=== PATIENT | female | born 1940 | race African-American/Black ===

== ENCOUNTER 2016-11-08 11:42 | Observation (INO) | payer MEDICARE, OTHER ==
[~2016-11-08] VITALS: Ht 165.1 cm; Wt 56.8 kg
[~2016-11-08 11:42] MED LIST: ATOR40TA49 PO; BACT PO; CARV12.52 PO; CLOP75 PO; HYDR50TA5 PO; LISI-363 PO; MACR100C PO; METF500 PO; Shower Chair
[2016-11-08 11:51] VITALS: BP 152/69; PULSE 98; RESP 18; TEMP 97.6; O2SAT 93
[2016-11-08] MEDS ORDERED: ACETAMINOPHEN/HYDROcodone 325 MG/5 MG TAB PO ONE (12:00)
--- NOTE | 2016-11-08 13:01 | PD ---
HPI Chief Complaint: Pain: Acute or Chronic Time Seen by Provider: 11:50 Travel History International Travel<30 days: No Contact w/Intl Traveler<30days: No Traveled to known affect area: No History of Present Illness HPI 76-year-old female here with complaint of low back/sacral pain. Patient is primarily wheelchair bound and uses a walker minimally for transfers and assistance. She was getting from her chair to a potty chair yesterday when she slipped, the potty chair fell out from underneath her and she landed on her buttock. Her son helped her into bed, but she has not been able to get up since. She is using Tylenol and ibuprofen for pain. She notes no pain to the lumbar spine, primarily within the sacrum. No difficulties with bowel movements. She was unable to get up today prompting EMS call. PFSH Past Medical History Hx Anticoagulant Therapy: Yes (PT CANT REMEMBER) Asthma: No Blood Disorders: No Anxiety: No Depression: No Heart Rhythm Problems: Yes Cancer: No Cardiac Catheterization: Yes Cardiovascular Problems: Yes High Cholesterol: Yes Chest Pain: Yes Congestive Heart Failure: No COPD: No Cerebrovascular Accident: Yes (2015) Coronary Artery Disease: Yes Diabetes: Yes Patient Takes Glucophage: Yes Diminished Hearing: No Endocrine: Yes Gastrointestinal Disorders: No Genitourinary: No Hypertension: Yes Immune Disorder: No Implanted Vascular Access Dvce: Yes Musculoskeletal: Yes (OA BILATERAL KNEES) Neurologic: Yes (HX OF CVA X2 - NO RESIDUAL) Psychiatric: No Reproductive: Yes (hysterectomy 1982) Respiratory: No Sleep Apnea: No Thyroid Disease: No Menopausal: Yes Past Surgical History Abdominal Surgery: No Body Medical Devices: HX OF CARDIAC STENTS Cardiac Surgery: Yes (two stents put in - 4 years ago) Coronary Stent: Yes (X 2 2001) Ear Surgery: No Eye Surgery: No Genitourinary Surgery: No Gynecologic Surgery: Yes (hysterectomy 1982) Hysterectomy: Yes Neurologic Surgery: No Oral Surgery: No Other Surgery: Yes Social History Alcohol Use: No Tobacco Use: No Substance Use: No Allergies-Medications (Allergen,Severity, Reaction): Coded Allergies: No Known Allergies (Verified , 11/08/16) Reported Meds & Prescriptions Reported Meds & Active Scripts Active Macrobid (Nitrofurantoin Macrocrystals) 100 Mg Cap 100 Mg PO BID Carvedilol 12.5 mg (Carvedilol) 12.5 Mg Tab 1 Tab PO BID Glucophage 500 mg (Metformin HCl) 500 Mg Tab 2 Tab PO BIDAC TAKE WITH MEALS Bactrim (Trimethoprim/Sulfamethoxazole) 80 Mg/400 Mg Tab 2 Tab PO BID Lisinopril 20 mg (Lisinopril) 20 Mg Tab 20 Mg PO DAILY Lipitor 40 Mg Tab (Atorvastatin Calcium) 40 Mg Tab 40 Mg PO DAILY Hctz (Hydrochlorothiazide) 50 Mg Tab 50 Mg PO DAILY [Shower Chair] 1 Unit .XX ONCE Plavix (Clopidogrel Bisulfate) 75 Mg Tab 75 Mg PO DAILY Review of Systems Except as stated in HPI: all other systems reviewed are Neg Physical Exam Narrative GENERAL: Cachectic elderly female in no acute distress SKIN: Focused skin assessment warm/dry. HEAD: Normocephalic. EYES: No scleral icterus. No injection or drainage. ENT: No nasal bleeding or discharge. Mucous membranes pink and moist. NECK: Supple mid line tenderness to palpation CARDIOVASCULAR: Regular rate and rhythm. RESPIRATORY: No accessory muscle use. GASTROINTESTINAL: Abdomen soft, non-tender MUSCULOSKELETAL: No midline tenderness to palpation of thoracic or lumbar spine. Patient has tenderness to palpation over the sacrum and bilateral SI joints without obvious deformity, ecchymosis. Pelvis appears stable. Bilateral upper and lower extremity range of motion is unremarkable without obvious deformity or injury. NEUROLOGICAL: Awake and alert. Motor grossly within normal limits. Normal speech. PSYCHIATRIC: Appropriate mood and affect; insight and judgment normal. Data Data Last Documented VS Vital Signs Date Time Temp Pulse Resp B/P Pulse Ox O2 Delivery O2 Flow Rate FiO2 11/08/16 11:51 97.6 98 18 152/[address] Pelvis W/O Iv Contrast (11/08/16 ) Acetamin-Hydrocod 325-5 Mg ([place] 5-325 (11/08/16 12:00) [facility] Medical Decision Making Medical Screen Exam Complete: Yes Emergency Medical Condition: Yes Medical Record Reviewed: Yes Differential Diagnosis 76-year-old female here after fall from standing yesterday with pain to the sacrum. Differential includes sacral bruising, fracture, pelvic fracture. Narrative Course Patient given [place] for pain. CT of the pelvis showed fracture at the sacrococcygeal region. Patient unfortunately is more weak than her normal and is not able to stand up independently. Will be admitted for physical therapy and potential placement. Diagnosis Primary Impression: Sacral fracture, closed Admitting Information Admitting Physician Requests: Observation Rupal Chan MD Nov 08, 2016 13:01
--- NOTE | 2016-11-08 13:14 | RADRPT ---
EXAM DATE/TIME: 11/08/2016 12:35 [place] COMPARISON: No previous studies available for comparison. INDICATIONS : Fell from chair. ORAL CONTRAST: No oral contrast ingested. RADIATION DOSE: 9.83 CTDIvol (mGy) MEDICAL HISTORY : Cardiovascular disease. Cerebrovascular disease. Hypertension.Diabetic SURGICAL HISTORY : None. ENCOUNTER: Initial ACUITY: 1 day PAIN SCALE: 4/10 LOCATION: pelvis TECHNIQUE: Volumetric scanning of the pelvis was performed. Using automated exposure control and adjustment of the mA and/or kV according to patient size, radiation dose was kept as low as reasonably achievable t o obtain optimal diagnostic quality images. FINDINGS: There is a fracture of the sacrococcygeal junction with minimal displacement. Bony structures are ost eopenic. There is no evidence for free fluid, mass, abscess formation, or any significant pathologica l adenopathy. There are no signs of diverticulitis. Chronic vascular calcifications are seen most l ikely due to the atherosclerotic changes involving the aorta, and iliac arteries without any signific ant aneurysmal dilatations for technique. There is moderate amount of stool in the colon.Scattered di verticuli are present in the visualized colon. IMPRESSION: Fracture at the sacrococcygeal junction. Alina Hernandez MD on November 08, 2016 at 13:07 Board Certified Radiologist. This report was verified electronically.
[2016-11-08 15:47] VITALS: BP 92/53; PULSE 84; RESP 20; O2SAT 93
--- NOTE | 2016-11-08 18:08 | HHI.HP ---
[facility] Service [facility] Primary Care Physician No Primary Care Physician Admission Diagnosis sacral fracture Diagnoses: Chief Complaint: Low back pain inability to ambulate Travel History International Travel<30 Days: No Contact w/Intl Traveler <30 Da: No Traveled to Known Affected Are: No History of Present Illness Patient is a 76-year-old female with history of hypertension, diabetes type 2 who is baseline almost wheelchair bound for the past year now but still able to get up out of bed to transfer to the wheelchair or commode but takes a long time. Patient lives at home with her grandson and has a caregiver. Apparently yesterday morning at around 5 AM patient tried to get up from bed to the pot T and the cultures sleeps in one block and the patient fell on the floor. Son helped him get up to bed and since then although was having intermittent pain on the tailbone. This morning. Was unbearable and was brought in here for further evaluation. Patient is comfortable when laying in bed still however when tries to move around even in bed experiencedf pain mostly on the sacral area. Denies any incontinence or calf pain. Patient admitted for further evaluation and management. Review of Systems Constitutional: DENIES: Diaphoretic episodes, Fatigue, Fever, Weight gain, Weight loss, Chills, Dizziness, Change in appetite, Night Sweats Endocrine: DENIES: Abnorml menstrual pattern, Heat/cold intolerance, Polydipsia , Polyuria, Polyphagia Eyes: DENIES: Blurred vision, Diplopia, Eye inflammation, Eye pain, Vision loss , Photosensitivity, Double Vision Ears, nose, mouth, throat: DENIES: Tinnitus, Hearing loss, Vertigo, Nasal discharge, Oral lesions, Throat pain, Hoarseness, Ear Pain, Running Nose, Epistaxis, Sinus Pain, Toothache, Odynophagia Respiratory: DENIES: Apneas, Cough, Snoring, Wheezing, Hemoptysis, Sputum production, Shortness of breath Cardiovascular: DENIES: Chest pain, Palpitations, Syncope, Dyspnea on Exertion , PND, Lower Extremity Edema, Orthopnea, Claudication Gastrointestinal: DENIES: Abdominal pain, Black stools, Bloody stools, Constipation, Diarrhea, Nausea, Vomiting, Difficulty Swallowing, Anorexia Genitourinary: DENIES: Abnormal vaginal bleeding, Dysmenorrhea, Dyspareunia, Sexual dysfunction, Urinary frequency, Urinary incontinence, Urgency, Hematuria , Dysuria, Nocturia, Vaginal discharge Musculoskeletal: COMPLAINS OF: Back pain Integumentary: DENIES: Abnormal pigmentation, Pruritus, Rash, Nail changes, Breast masses, Breast skin changes, Nipple discharge Hematologic/lymphatic: DENIES: Bruising, Lymphadenopathy Immunologic/allergic: DENIES: Eczema, Urticaria Neurologic: DENIES: Abnormal gait, Headache, Localized weakness, Paresthesias, Seizures, Speech Problems, Tremor, Poor Balance Psychiatric: DENIES: Anxiety, Confusion, Mood changes, Depression, Hallucinations, Agitation, Suicidal Ideation, Homicidal Ideation, Delusions Past Family Social History Past Medical History Hypertension History of CVA 5 years ago History of rheumatic fever Denies any history of CAD History of diabetes type 2 Past Surgical History Hysterectomy Reported Medications Metformin 500 mg twice a day Lisinopril 2.5 mg twice a day Carvedilol 6.25 mg twice a day Hydrochlorothiazide 12.5 mg daily Atorvastatin 40 mg at bedtime Plavix 75 mg daily Allergies: Coded Allergies: No Known Allergies (Verified , 11/08/16) Family History Noncontributory Social History History of smoking about a pack a day quit 15 years ago Denies alcohol or substance abuse Physical Exam Vital Signs Vital Signs Date Time Temp Pulse Resp B/P Pulse Ox O2 Delivery O2 Flow Rate FiO2 11/08/16 15:47 84 20 92/53 93 11/08/16 11:51 97.6 98 18 152/69 93 Physical Exam GENERAL: This is a well-nourished, well-developed patient, in no apparent distress. SKIN: No rashes, ecchymoses or lesions. Cool and dry. HEAD: Atraumatic. Normocephalic. No temporal or scalp tenderness. EYES: Pupils equal round and reactive. Extraocular motions intact. No scleral icterus. No injection or drainage. ENT: Nose without bleeding, Throat without erythema, tonsillar hypertrophy or exudate. Uvula midline. Airway patent. NECK: Trachea midline. No JVD or lymphadenopathy. Supple, nontender, no meningeal signs. CARDIOVASCULAR: Regular rate and rhythm without murmurs, RESPIRATORY: Clear to auscultation. Breath sounds equal bilaterally. No wheezes , rales, or rhonchi. GASTROINTESTINAL: Abdomen soft, non-tender, nondistended. No guarding. MUSCULOSKELETAL: Point tenderness on palpation of the sacrum. Good peripheral pulses NEUROLOGICAL: Awake and alert. Cranial nerves II through XII intact. Sensory intact. Speech clear. Moves all extremities limited by pain Assessment and Plan Assessment and Plan 76-year-old female Status post fall with increasing pain and difficulty ambulation with left sacrococcygeal fracture Consult orthopedic service for recommendation PTOT consult in a.m. When necessary pain meds History of diabetes type 2 patient states good hypoglycemic awareness . ff blood sugars. DC Metformin.FF BMP History of CVA, hypertension continue lisinopril 2.5 mg by mouth twice a day. Carvedilol 6.25 mg twice a day. Continue on Plavix 75 mg daily History of hyperlipidemia continue atorvastatin 40 mg at bedtime Case management consult for discharge planning Lovenox 30 mg subcutaneous for DVT prophylaxis Discussed Condition With Patient and caregiver Layla Phan MD Nov 08, 2016 18:08 Layla Phan MD Nov 08, 2016 18:08
[2016-11-08 18:59] LABS: AUTOMATED NEUTROPHIL # 3.5 TH/MM3 (1.8-7.7); BASOPHIL % 0.5 % (0.0-2.0); EOSINOPHIL # 0.2 TH/MM3 (0-0.4); HEMATOCRIT 32.8 % (35.0-46.0); HEMO FLAGS DIFF FINAL; LYMPH % 12.8 % (9.0-44.0); LYMPHOCYTE # 0.6 TH/MM3 (1.0-4.8); MEAN CELL VOLUME 91.5 FL (80.0-100.0); MEAN CORPUSCULAR HEMOGLOBIN 30.4 PG (27.0-34.0); MEAN CORPUSCULAR HGB CONC 33.2 % (32.0-36.0); MONO % 7.6 % (0.0-8.0); NEUT % 75.1 % (16.0-70.0); PLATELET COUNT 102 TH/MM3 (150-450); RED BLOOD COUNT 3.59 MIL/MM3 (4.00-5.30); WHITE BLOOD COUNT 4.6 TH/MM3 (4.0-11.0)
[2016-11-08 19:14] LABS: ANION GAP 6 MEQ/L (5-15); AST (GOT) 17 U/L (15-37); BICARBONATE 30.5 MEQ/L (21.0-32.0); BLOOD UREA NITROGEN 26 MG/DL (7-18); CHLORIDE 106 MEQ/L (98-107); GLOMERULAR FILTRATION RATE 48 ML/MIN (>89); POTASSIUM 4.6 MEQ/L (3.5-5.1); SODIUM (NA) 142 MEQ/L (136-145)
[2016-11-08 19:17] LABS: ALKALINE PHOSPHATASE 76 U/L (45-117); ALT (GPT) 20 U/L (10-53); TOTAL BILIRUBIN ADULT 0.4 MG/DL (0.2-1.0)
[2016-11-08 20:00] VITALS: BP 101/57; PULSE 79; RESP 14; O2SAT 95
[2016-11-08 21:57] VITALS: BP 109/59; PULSE 82; RESP 18; TEMP 97.6; O2SAT 97
[2016-11-08] MEDS: CARVEDILOL 12.5 MG TAB PO SCH (22:33)
[2016-11-09] MEDS ORDERED: ACETAMINOPHEN/HYDROcodone 325 MG/5 MG TAB PO PRN (00:15)
[2016-11-09 06:34] VITALS: BP 132/69; PULSE 74; RESP 16; TEMP 97.9; O2SAT 97
--- NOTE | 2016-11-09 07:51 | HHI.PR ---
Subjective Remarks pain with movement when laying still in bed- no pain able to move all extremities- Objective Vitals Vital Signs Date Time Temp Pulse Resp B/P Pulse Ox O2 Delivery O2 Flow Rate FiO2 11/09/16 06:34 97.9 74 16 132/69 97 11/08/16 21:57 97.6 82 18 109/59 97 11/08/16 20:00 79 14 101/57 95 Room Air 11/08/16 15:47 84 20 92/53 93 11/08/16 11:51 97.6 98 18 152/69 93 Result Diagram: 11/08/16 1845 11/08/161844 Objective Remarks awake and alert, oriented x 3 anicteric lungs clear regular rhtthm abdomen soft, nonder no calf swelling or tenderness moves all extremities spontaneously sensory intact grossly gait testing deferred- A/P Assessment and Plan 76-year-old female Status post fall with increasing pain and difficulty ambulation with left sacrococcygeal fracture seen by Dr. Garcia. Consult PT. PT activity as ordered. May need SNF- based on PT eval When necessary pain meds q 4. Stool softeners History of diabetes type 2 patient states good hypoglycemic awareness . ff blood sugars. 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 creatinine near baseline from Apr 2016- monitor BMP .encourage po. History of CVA, hypertension continue lisinopril 2.5 mg by mouth twice a day. Carvedilol 6.25 mg twice a day. Continue on Plavix 75 mg daily. PT daily History of hyperlipidemia continue atorvastatin 40 mg at bedtime Case management consult for discharge planning- home with home PT vs SNF depending on PT evaluation. also consult for possible DME needs base on PT evaluation Lovenox 30 mg subcutaneous for DVT prophylaxis Layla Phan MD Nov 09, 2016 07:51
[2016-11-09 07:58] VITALS: BP 131/61; PULSE 90; RESP 16; TEMP 97.9; O2SAT 96
[2016-11-09] MEDS: CLOPIDOGREL 75 MG TAB PO SCH (08:52)
[2016-11-09] MEDS: LISINOPRIL 20 MG TAB PO SCH (08:52)
[2016-11-09] MEDS: DOCUSATE SODIUM 100 MG CAP PO SCH ×2 (08:52→21:00)
[2016-11-09] MEDS: CARVEDILOL 12.5 MG TAB PO SCH ×2 (08:53→21:00)
[2016-11-09] MEDS: ATORVASTATIN 40 MG TAB PO SCH (08:53)
[2016-11-09] MEDS: ENOXAPARIN SODIUM 30 MG/0.3 ML SYRINGE SQ SCH (08:53)
--- NOTE | 2016-11-09 11:07 | MB ---
cc: MIRELA LOERA DATE OF CONSULTATION: 11/09/2016 REASON FOR CONSULTATION: Coccyx fracture. CONSULTING PHYSICIAN Dr. Phan. HISTORY Samreen is a 76-year-old female who has a history of hypertension and diabetes. She is able to walk short distances with a walker but mostly uses a wheelchair. She states that she had a problem with her right knee which causing her to have limited ambulatory ability. She was getting out of bed to go to the bathroom. She lost her balance and fell. She landed directly on her Buttocks area. She had immediate pain around her tail bone region. She presented emergency room. CT scan revealed a fracture to the coccyx. She is currently awake and the emergency department. Her only complaint is pain around her tail bone region. PAST MEDICAL HISTORY/ILLNESSES Hypertension. History of cerebrovascular accident. Rheumatic fever Type 2 diabetes. SURGERIES Hysterectomy MEDICATIONS 1. Metformin. 2. Lisinopril. 3. Carvedilol. 4. Hydrochlorothiazide. 5. Atorvastatin. 6. Plavix. ALLERGIES NO KNOWN DRUG ALLERGIES. FAMILY HISTORY Noncontributory. SOCIAL HISTORY The patient that smoking about 15 years ago. She denies tobacco or drug use. REVIEW OF SYSTEMS The patient denies headache, visual changes, neck pain, chest pain, shortness of breath, abdominal pain ounce or recent weight loss. She complains of pain around her tail bone. PHYSICAL EXAMINATION IN GENERAL: The patient is a pleasant 76-year female who is awake and alert. She is alert and x3. VITAL SIGNS: Vital signs: Temperature 97.9, pulse 74, respirations 16, blood pressure 134/69, O2 sat 97% on room air. HEAD, EYES, EARS, NOSE, AND THROAT: Head: The patient is normocephalic. Pupils are equal. NECK: Soft, nontender. Trachea is midline. ABDOMEN: The abdomen is soft, nontender, nondistended. EXTREMITIES: Examination of bilateral upper extremities reveals no pain with shoulder, elbow or wrist motion. She has intact sensation in all fingers. She had good cap refill fingers. Radial pulses are palpable. SKIN: The skin is intact both hands. EXTREMITIES: Examination of bilateral lower extremities reveals no significant pain with hip, knee or ankle motion. She has intact sensation both feet. Dorsalis pedis pulses are palpable. She has had a mild varus deformity of right knee examination. BACK: Examination of her spine reveals no tenderness along her no tenderness along her cervical, thoracic or lumbar spine. She has no paraspinal muscle tenderness. She does have tenderness to palpation directly over the coccyx area. CT scan CT scan of pelvis was reviewed. CT scan revealed a minimally displaced fracture through the coccyx. IMPRESSION 1. Diabetes 2. Hypertension 3. History of CVA 4. Coccyx fracture. PLAN The option discussed with the patient at this point I would recommend conservative treatment. The patient may weight bear as tolerated. She has no specific restrictions. She may benefit from a donut type pillow to help alleviate the pain or pressure in the tail bone region. Explained this likely take 8 to 12 weeks to completely heal. All questions were answered. A mid-level provider in my office (nurse practitioner or physician railways assistant) may see this patient on follow-up visits and continue to implement the objectives of this plan including: Starting or adjusting medications, injections , cast application, orthotics, brace application, physical therapy, radiological studies (including x-ray, MRI, CT, ultrasound, bone scan), vascular studies, neurologic studies, specialist consultation, and proceeding with surgical management, as appropriate. MD ALMA Arteaga/rubi /7:08 AM /10:45 AM MTDD
[2016-11-09 11:52] VITALS: BP 93/51; PULSE 77; RESP 16; TEMP 98.7; O2SAT 96
[2016-11-09 11:56] LABS: BICARBONATE 29.6 MEQ/L (21.0-32.0); POTASSIUM 4.2 MEQ/L (3.5-5.1)
[2016-11-09] MEDS: oxyCODONE/ACETAMINOPHEN 5 MG/325 MG TAB PO PRN ×2 (13:48→16:22)
[2016-11-09 15:52] VITALS: BP 110/64; PULSE 90; RESP 16; TEMP 97.9; O2SAT 97
[2016-11-09 18:04] LABS: HEMOGLOBIN A1b 1.2 %; HEMOGLOBIN Ao 84.1 %; HEMOGLOBIN LA1C 2.3 %; HEMOGLOBIN P3 5.7 %
[2016-11-09] MEDS: SODIUM CHLOR 0.9% 1000 ML INJ 1,000 ML IV SCH (18:15)
[2016-11-09 19:09] VITALS: BP 109/63; PULSE 72; RESP 20; TEMP 97.9; O2SAT 89
[2016-11-09 20:00] VITALS: PULSE 75; RESP 18; O2SAT 93
[2016-11-10 00:42] VITALS: BP 130/55; PULSE 84; RESP 21; TEMP 98.6; O2SAT 98
[2016-11-10 04:15] VITALS: BP 161/88; PULSE 90; RESP 21; TEMP 98.6; O2SAT 96
[2016-11-10] MEDS: oxyCODONE/ACETAMINOPHEN 5 MG/325 MG TAB PO PRN ×2 (04:17→09:20)
--- NOTE | 2016-11-10 08:13 | HHI.PR ---
Subjective Remarks comfortable at rest- pain when moving voiding spontaneously Objective Vitals Vital Signs Date Time Temp Pulse Resp B/P Pulse Ox O2 Delivery O2 Flow Rate FiO2 11/10/16 05:20 16 11/10/16 04:15 98.6 90 21 161/88 96 11/10/16 00:42 98.6 84 21 130/55 98 11/09/16 20:00 75 18 93 11/09/16 19:09 97.9 72 20 109/63 89 11/09/16 15:52 97.9 90 16 110/64 97 11/09/16 11:52 98.7 77 16 93/51 96 Result Diagram: 11/08/16 1845 11/09/16 1103 Objective Remarks awake and alert, oriented x 3 anicteric lungs clear regular rhtthm abdomen soft, nontender no calf swelling or tenderness moves all extremities spontaenously- limited by pain, grossly sensory intact sensory intact grossly A/P Assessment and Plan 76-year-old female Status post fall with increasing pain and difficulty ambulation with left sacrococcygeal fracture seen by Dr. Garcia. PT daily .needs SNF When necessary pain meds q 4. Stool softeners History of diabetes type 2 patient states good hypoglycemic awareness BS 98.. ff blood sugars. 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 creatinine near baseline from Apr 2016- monitor BMP .encourage po. BMP today History of CVA, hypertension continue lisinopril 2.5 mg by mouth twice a day. Carvedilol 6.25 mg twice a day. Continue on Plavix 75 mg daily. PT daily History of hyperlipidemia continue atorvastatin 40 mg at bedtime CM consult- SNF today if arranged Lovenox 30 mg subcutaneous for DVT prophylaxis diet- heart healthy, diabetic diet Activity weoght bearing as tolerated Meds- prn Percocet for pain continue home meds except metformin Layla Phan MD Nov 10, 2016 08:13
[2016-11-10 09:02] VITALS: BP 157/70; PULSE 78; RESP 20; O2SAT 95
[2016-11-10] MEDS: LISINOPRIL 20 MG TAB PO SCH (09:19)
[2016-11-10] MEDS: ATORVASTATIN 40 MG TAB PO SCH (09:19)
[2016-11-10] MEDS: ENOXAPARIN SODIUM 30 MG/0.3 ML SYRINGE SQ SCH (09:19)
[2016-11-10] MEDS: CARVEDILOL 12.5 MG TAB PO SCH (09:19)
[2016-11-10] MEDS: DOCUSATE SODIUM 100 MG CAP PO SCH (09:19)
[2016-11-10] MEDS: CLOPIDOGREL 75 MG TAB PO SCH (09:19)
[2016-11-10] MEDS: SODIUM CHLOR 0.9% 1000 ML INJ 1,000 ML IV SCH (09:19)
[2016-11-10 11:15] LABS: BICARBONATE 27.9 MEQ/L (21.0-32.0); POTASSIUM 4.5 MEQ/L (3.5-5.1)
[2016-11-10 11:48] VITALS: BP 114/65; PULSE 88; RESP 18; TEMP 98; O2SAT 95
[2016-11-10 15:45] VITALS: BP 134/67; PULSE 94; RESP 16; TEMP 98.1; O2SAT 98
[2016-11-10] MEDS ORDERED: ENOX30P SQ (17:21)
[2016-11-10] MEDS ORDERED: OXYC1TAB63 PO (17:21)
[2016-11-10] MEDS ORDERED: DOCU1CAP39 PO (17:23)
[2016-11-10 20:46] VITALS: BP 144/73; PULSE 95; RESP 18; TEMP 97.8; O2SAT 97
== END 2016-11-10 22:06 | disposition home or self-care (01) ==
LOC: NEPD 11:42 → NEDA 13:47 → NEPFCDU 21:48
PROVIDERS: ADMIT Internal Medicine; ATTEND Internal Medicine
DX: S32.2XXA Fracture of coccyx, initial encounter for closed fracture (principal); E78.5 Hyperlipidemia, unspecified; N18.9 Chronic kidney disease, unspecified; I12.9 Hypertensive chronic kidney disease with stage 1 through stage 4 chronic kidney disease, or unspecified chronic kidney disease; E11.22 Type 2 diabetes mellitus with diabetic chronic kidney disease; I25.10 Atherosclerotic heart disease of native coronary artery without angina pectoris; E78.00 Pure hypercholesterolemia, unspecified; M17.0 Bilateral primary osteoarthritis of knee; W01.0XXA Fall on same level from slipping, tripping and stumbling without subsequent striking against object, initial encounter; Z79.02 Long term (current) use of antithrombotics/antiplatelets; Z79.84 Long term (current) use of oral hypoglycemic drugs; Z86.73 Personal history of transient ischemic attack (TIA), and cerebral infarction without residual deficits; Z87.891 Personal history of nicotine dependence; Z99.3 Dependence on wheelchair
CPT/HCPCS: 72192; 80048; 80053; 82550; 82948; 83036; 85025; 97110; 97163; 97530; 99285; G0378; G8987; G8988; J1650; J7030

== ENCOUNTER 2018-09-04 11:22 | Inpatient (IN) ==
--- NOTE | 2018-09-04 12:34 | ED ---
HPI General Chief complaint: Nausea/Vomiting/Diarrhea Stated complaint: NVD Time Seen by Provider: 09/04/18 12:29 History of Present Illness HPI narrative: Patient is a 77-year-old female with a history of diabetes presents emergency department with nausea and vomiting since this morning. Brought in by EMS from home. Patient states she "did not even know she was vomiting. According to EMS patient was given 500 cc of fluid, Zofran prior to arrival. Patient states she is feeling much better currently. Denies abdominal pain. Her blood glucose prior to arrival was 251. Related Data Home Medications Medication Instructions Recorded Confirmed alendronate [Fosamax] 70 mg PO QWEEK 09/04/18 09/04/18 atorvastatin [Lipitor] 80 mg PO QPM 09/04/18 09/04/18 carvedilol [Coreg] 6.25 mg PO BID 09/04/18 09/04/18 lisinopril 10 mg PO DAILY 09/04/18 09/04/18 metformin 500 mg PO BID 09/04/18 09/04/18 Allergies Allergy/AdvReac Type Severity Reaction Status Date / Time No Known Allergies Allergy Verified 09/04/18 12:34 Review of Systems ROS Unobtainable ROS Unobtainable: unobtainable due to mental condition PMFSH Medical History Medical History CVA (cerebral vascular accident) (Chronic) Diabetes 1.5, managed as type 2 (Chronic) Hx of hysterectomy (Chronic) Hyperlipidemia (Chronic) Hypertension (Chronic) Osteoarthritis (Chronic) Wheelchair bound (Chronic) Surgical History Surgical History History of intravascular stent placement (Chronic) Social History Social History Substance History: No History of Abuse Smoking Status: Never smoker How Often Do You Have a Drink Containing Alcohol: Never Recent Travel in [place] within the Last 8 Weeks: No Recent Out of Country Travel within the Last 8 Weeks: No Exam Narrative Exam Narrative: GENERAL: Well-developed well-nourished, no obvious distress, quite pleasant. SKIN: Focused skin assessment warm/dry. HEAD: Atraumatic. Normocephalic. EYES: Pupils equal and round. No scleral icterus. No injection or drainage. ENT: No nasal bleeding or discharge. Mucous membranes pink and moist. NECK: Trachea midline. No JVD. CARDIOVASCULAR: Regular rate and rhythm. No murmur appreciated. RESPIRATORY: No accessory muscle use. Clear to auscultation. Breath sounds equal bilaterally. GASTROINTESTINAL: Abdomen soft, non-tender, nondistended. Hepatic and splenic margins not palpable. MUSCULOSKELETAL: No obvious deformities. No clubbing. No cyanosis. No edema. NEUROLOGICAL: Awake and alert. No obvious cranial nerve deficits. Motor grossly within normal limits. Normal speech. PSYCHIATRIC: Appropriate mood and affect; insight and judgment normal. Course Initial Documented Vital Signs Temperature 98.4 F 09/04/18 12:35 Pulse Rate 89 09/04/18 12:35 Respiratory Rate 18 09/04/18 12:35 Blood Pressure 147/64 H 09/04/18 12:35 Pulse Oximetry 92 L 09/04/18 12:35 Last Documented Vital Signs Temperature 97.6 F 09/04/18 20:00 Pulse Rate 89 09/04/18 20:00 Respiratory Rate 20 09/04/18 20:00 Blood Pressure 151/70 H 09/04/18 20:00 Pulse Oximetry 93 L 09/04/18 20:00 Medical Decision Making MDM Narrative Medical decision making narrative: Patient room to the emergency department, some vomit on her left side of her collar. Patient being worked up, notable lab values include a bandemia. Chest x-ray negative, urinalysis negative, patient underwent CT scan of the abdomen showing pleural effusion and possible lung mass. Chest x-ray was clear however. At this point Rocephin azithromycin was started for possible lung infection as a source of her bandemia. She is hemodynamically stable, lactic acid minimally elevated 2.4. Additional liter of normal saline has been ordered for her as well. Blood pressures been well within normal limits as well as heart rate. The patient would do well for an observation status for her bandemia and questionable pneumonia, CT scan of the chest has been ordered at the time of admission. Medical Screen Exam Complete: Yes Emergency Medical Condition: Yes Lab Data Result diagrams: 09/04/18 13:05 09/04/18 13:05 Lab Results 09/04/18 09/04/18 09/04/18 Range/Units 13:05 13:05 14:24 WBC 3.9 L (4.0-11.0) th/mm3 RBC 4.06 (4.00-5.30) mil/mm3 Hgb 12.8 (11.6-15.3) gm/dL Hct 37.6 (35.0-46.0) % MCV 92.6 (80.0-100.0) fL MCH 31.7 (27.0-34.0) pg MCHC 34.2 (32.0-36.0) % RDW 15.6 (11.6-17.2) % Plt Count 98 L (150-450) th/mm3 MPV 10.9 (7.0-11.0) fL Prelim Diff (Auto) Slide review pending Neut % (Auto) 82.3 H (16.0-70.0) % Lymph % (Auto) 7.7 L (9.0-44.0) % [place] % (Auto) 8.9 H (0.0-8.0) % Eos % (Auto) 0.8 (0.0-4.0) % Baso % (Auto) 0.3 (0.0-2.0) % Neut # (Auto) 3.2 (1.8-7.7) th/mm3 Lymph # (Auto) 0.3 L (1.0-4.8) th/mm3 [place] # (Auto) 0.3 (0.0-0.9) th/mm3 Eos # (Auto) 0.0 (0.0-0.4) th/mm3 Baso # (Auto) 0.0 (0.0-0.2) th/mm3 WBC Differential Manual diff final Seg Neuts % (Manual) 77 H (16-70) % Band Neuts % (Manual) 11 H (0-6) % Lymphocytes % (Manual) 6 L (9-44) % Monocytes % (Manual) 5 (0-8) % Eosinophils % (Manual) 1 (0-4) % Abs Neuts (Manual) 3.4 (1.8-7.7) th/mm3 Differential Comment . Platelet Estimate Low L (Normal) Platelet Morphology Normal (Normal) Ovalocytes 1+ H (None) Carly Cells 1+ H (None) Acanthocytes (Spur) 1+ H (None) Keratocytes Occ H (None) Sodium 141 (136-145) meq/L Potassium 3.6 (3.5-5.1) meq/L Chloride 104 (98-107) meq/L Carbon Dioxide 28.0 (21.0-32.0) meq/L Anion Gap 9 (5-15) meq/L BUN 17 (7-18) mg/dL Creatinine 1.43 H (0.50-1.00) mg/dL Estimated GFR 43 L (>89) mL/min Random Glucose 189 H (74-106) mg/dL Lactic Acid (0.4-2.0) mmol/L Calcium 7.9 L (8.5-10.1) mg/dL Magnesium 1.7 (1.5-2.5) mg/dL Total Bilirubin 0.5 (0.2-1.0) mg/dL AST 29 (15-37) U/L ALT 20 (10-53) U/L Alkaline Phosphatase 88 (45-117) U/L Total Protein 7.2 (6.4-8.2) g/dL Albumin 3.3 L (3.4-5.0) g/dL Lipase 283 (73-393) U/L Urine Color [place] (Yellw/Straw) Urine Clarity Cloudy H (Clear) Urine pH 5.0 (5.0-8.5) Ur Specific [place] 1.018 (1.002-1.035) Urine Protein 30 H (Neg-Trace) mg/dL Urine Glucose (UA) Negative (Negative) mg/dL Urine Ketones Negative (Negative) mg/dL Urine Occult Blood Moderate H (Negative) Urine Nitrate Negative (Negative) Urine Bilirubin Negative (Negative) Urine Urobilinogen Less than 2 (Less than 2) mg/dL Ur Leukocyte Esterase Negative (Negative) Urine WBC 1 (0-5) /hpf Ur Squamous Epith Cells <1 (0-5) /hpf Urine Bacteria Occasional H (None) /hpf Micro UA Comment Culture not ind Ur Microscopic Review Not Reportable Urine Culture Comments Culture not ind 09/04/18 Range/Units 15:50 WBC (4.0-11.0) th/mm3 RBC (4.00-5.30) mil/mm3 Hgb (11.6-15.3) gm/dL Hct (35.0-46.0) % MCV (80.0-100.0) fL MCH (27.0-34.0) pg MCHC (32.0-36.0) % RDW (11.6-17.2) % Plt Count (150-450) th/mm3 MPV (7.0-11.0) fL Prelim Diff (Auto) Neut % (Auto) (16.0-70.0) % Lymph % (Auto) (9.0-44.0) % [place] % (Auto) (0.0-8.0) % Eos % (Auto) (0.0-4.0) % Baso % (Auto) (0.0-2.0) % Neut # (Auto) (1.8-7.7) th/mm3 Lymph # (Auto) (1.0-4.8) th/mm3 [place] # (Auto) (0.0-0.9) th/mm3 Eos # (Auto) (0.0-0.4) th/mm3 Baso # (Auto) (0.0-0.2) th/mm3 WBC Differential Seg Neuts % (Manual) (16-70) % Band Neuts % (Manual) (0-6) % Lymphocytes % (Manual) (9-44) % Monocytes % (Manual) (0-8) % Eosinophils % (Manual) (0-4) % Abs Neuts (Manual) (1.8-7.7) th/mm3 Differential Comment Platelet Estimate (Normal) Platelet Morphology (Normal) Ovalocytes (None) Carly Cells (None) Acanthocytes (Spur) (None) Keratocytes (None) Sodium (136-145) meq/L Potassium (3.5-5.1) meq/L Chloride (98-107) meq/L Carbon Dioxide (21.0-32.0) meq/L Anion Gap (5-15) meq/L BUN (7-18) mg/dL Creatinine (0.50-1.00) mg/dL Estimated GFR (>89) mL/min Random Glucose (74-106) mg/dL Lactic Acid 2.4 H (0.4-2.0) mmol/L Calcium (8.5-10.1) mg/dL Magnesium (1.5-2.5) mg/dL Total Bilirubin (0.2-1.0) mg/dL AST (15-37) U/L ALT (10-53) U/L Alkaline Phosphatase (45-117) U/L Total Protein (6.4-8.2) g/dL Albumin (3.4-5.0) g/dL Lipase (73-393) U/L Urine Color (Yellw/Straw) Urine Clarity (Clear) Urine pH (5.0-8.5) Ur Specific [place] (1.002-1.035) Urine Protein (Neg-Trace) mg/dL Urine Glucose (UA) (Negative) mg/dL Urine Ketones (Negative) mg/dL Urine Occult Blood (Negative) Urine Nitrate (Negative) Urine Bilirubin (Negative) Urine Urobilinogen (Less than 2) mg/dL Ur Leukocyte Esterase (Negative) Urine WBC (0-5) /hpf Ur Squamous Epith Cells (0-5) /hpf Urine Bacteria (None) /hpf Micro UA Comment Ur Microscopic Review Urine Culture Comments Imaging Data Radiologist's impression: Abdomen/Pelvis CT 09/04/18 15:14 CONCLUSION: 1. 1.7 cm mass in the lower lateral right lung partially included in the field- of-view scan. Also moderate size right pleural effusion. The findings are suspicious for malignancy. Recommend CT thorax to evaluate for additional lesions. 2. Moderate-sized bilateral fat-containing inguinal hernias. Chest X-Ray 09/04/18 15:14 CONCLUSION: The lungs are clear. Chest CT 09/04/18 17:01 CONCLUSION: 1. Right lower lobe 1.8 x 1.4 x 1.6 cm pleural-based soft tissue mass of concern for primary bronchogenic carcinoma. There is a borderline prominent pretracheal lymph node. These findings could be further evaluated with PET CT to evaluate for hypermetabolic tumor. The lung mass would be amenable to CT- guided core biopsy. 2. Small right pleural effusion. 3. Small pericardial effusion. Discharge Plan Discharge Disposition Patient Disposition: ED Admit(ED Internal Use Only) Discharge Condition Condition: Stable Discharge Order Discharge Orders: ED Use Only Admit Order (Routine); Ordered 09/04/18 Ordered By: Yobani Esqueda Discharge Details Diagnosis: Pleural effusion, Mass of left lung, Nausea and vomiting Physicians Team ED Provider: Yobani Esqueda Primary Care Provider: Syed Luis V Attending Provider: Lucero Hall Discharge Interventions Interventions: ED Discharge Assessment Last Done: 09/04/18 18:58 Status ED Status: Admitted Observation Patient
[2018-09-04 13:20] LABS: Baso % (Auto) 0.3 % (0.0-2.0); Eos % (Auto) 0.8 % (0.0-4.0); Hematocrit 37.6 % (35.0-46.0); Hemoglobin 12.8 gm/dL (11.6-15.3); Lymph # (Auto) 0.3 th/mm3 (1.0-4.8); Lymph % (Auto) 7.7 % (9.0-44.0); Mean Corpuscular HGB Conc 34.2 % (32.0-36.0); Mean Corpuscular Hemoglobin 31.7 pg (27.0-34.0); Mean Corpuscular Volume 92.6 fL (80.0-100.0); Mean Platelet Volume 10.9 fL (7.0-11.0); Mono # (Auto) 0.3 th/mm3 (0.0-0.9); Mono % (Auto) 8.9 % (0.0-8.0); Neut # (Auto) 3.2 th/mm3 (1.8-7.7); Neut % (Auto) 82.3 % (16.0-70.0); Platelet Count 98 th/mm3 (150-450); Red Blood Count 4.06 mil/mm3 (4.00-5.30); Red Cell Distribution Width 15.6 % (11.6-17.2); White Blood Count 3.9 th/mm3 (4.0-11.0)
[2018-09-04 13:38] LABS: Alanine Aminotransferase 20 U/L (10-53); Albumin 3.3 g/dL (3.4-5.0); Anion Gap 9 meq/L (5-15); Aspartate Aminotransferase 29 U/L (15-37); Blood Urea Nitrogen 17 mg/dL (7-18); Calcium 7.9 mg/dL (8.5-10.1); Chloride 104 meq/L (98-107); Glomerular Filtration Rate 43 mL/min (>89); Glucose,Random 189 mg/dL (74-106); Lipase 283 U/L (73-393); Magnesium 1.7 mg/dL (1.5-2.5); Potassium 3.6 meq/L (3.5-5.1); Sodium 141 meq/L (136-145)
[2018-09-04 13:40] LABS: Alkaline Phosphatase 88 U/L (45-117); Total Protein 7.2 g/dL (6.4-8.2)
[2018-09-04 13:53] LABS: Eosinophils 1 % (0-4); Lymphocytes 6 % (9-44); Monocytes 5 % (0-8)
[2018-09-04 13:54] LABS: Acanthocytes 1+; Ovalocytes 1+; Platelet Morphology Normal (Normal)
[2018-09-04 13:55] LABS: Burr Cells 1+
[2018-09-04 15:00] LABS: Bacteria,Urine Occasional /hpf; Bilirubin,Urine Negative (Negative); Clarity,Urine Cloudy (Clear); Color,Urine Amber (Yellw/Straw); Glucose,Urine (UA) Negative (Negative); Leukocyte Esterase,Urine Negative (Negative); Nitrite,Urine Negative (Negative); Specific Gravity,Urine 1.018 (1.002-1.035); Squamous Epithelial Cell,Urine <1 /hpf (0-5)
--- NOTE | 2018-09-04 15:48 | XR ---
EXAM DATE: 09/04/2018 3:43 PM EST AGE/SEX: 77 years / Female INDICATIONS: Fever, cough. CLINICAL DATA: This is the patient's initial encounter. Patient reports that signs and symptoms have been present for 1 day and indicates a pain score of 0/10. MEDICAL/SURGICAL HISTORY: . Cardiovascular disease. Cerebrovascular disease. Hypertension. Diab etic. None. COMPARISON: [facility] – [place], CHEST PA & LAT, 05/20/2016. . FINDINGS: A single AP view of the chest demonstrates the lungs to be symmetrically aerated without evidence of mass, infiltrate or effusion. The cardiomediastinal contours are unremarkable. Osseous structures a re intact. CONCLUSION: The lungs are clear. Electronically signed by: Yosef Lowery MD Board Certified Radiologist 09/04/2018 3:46 PM EST
--- NOTE | 2018-09-04 16:41 | CT ---
EXAM DATE: 09/04/2018 4:33 PM EST AGE/SEX: 77 years / Female INDICATIONS: Nausea vomiting CLINICAL DATA: This is the patient's initial encounter. Patient reports that signs and symptoms have been present for 1 day and indicates a pain score of 2/10. MEDICAL/SURGICAL HISTORY: Cerebrovascular disease. Diabetes. . Stent ORAL CONTRAST: No oral contrast ingested. RADIATION DOSE: 5.53 CTDI (mGy) COMPARISON: No prior exams available for comparison. TECHNIQUE: Multiple contiguous axial images were obtained through the abdomen and pelvis following b olus infusion of 69 ml Omnipaque 350 (iohexol) nonionic water-soluble contrast as a single exam dos e. No oral contrast ingested. Using automated exposure control and adjustment of the mA and/or kV ac cording to patient size, radiation dose was kept as low as reasonably achievable to obtain optimal di agnostic quality images. DICOM format image data is available electronically for review and comparis on. FINDINGS: Lower Lungs: Incompletely included in the [id number] of the exam is a 1.7 cm mass in the periphery of the right lower lung seen on images 1 and 2. There is also a moderate size right pleural effusion measuring 1.9 cm. Liver: The liver has a homogeneous density without space-occupying lesion. There is no dilation of th e biliary tree. No calcified gallstones. Spleen: Homogeneous density without enlargement. Pancreas: Unremarkable without mass or calcification. Kidneys: Normal in size and shape. No evidence of mass or hydronephrosis. 2 cm cyst upper pole right kidney. Adrenal Glands: Unremarkable. Aorta: Normal dimension. Prominent wall calcification in the aorta, iliac vessels, and renal vessel s. Bowel/Mesentery: No dilated loops of small or large bowel. No evidence of free fluid. Abdominal Wall: Intact. Retroperitoneum: No evidence of adenopathy in the retrocrural, para-aortic, or deep pelvic regions. Bladder: Contours are smooth. Reproductive Organs: No abnormal masses or calcifications seen. Inguinal: Bilateral fat-containing inguinal hernias, moderate size. Bony Structures: Grade 1 anterolisthesis at L5-S1 with interspace narrowing and advanced hypertrophi c changes in the posterior elements. CONCLUSION: 1. 1.7 cm mass in the lower lateral right lung partially included in the [id number] scan. Also mo derate size right pleural effusion. The findings are suspicious for malignancy. Recommend CT thorax t o evaluate for additional lesions. 2. Moderate-sized bilateral fat-containing inguinal hernias. Electronically signed by: Yosef Lowery MD Board Certified Radiologist 09/04/2018 4:40 PM EST
[2018-09-04] MEDS ORDERED: Azithromycin Inj 500 MG in Sodium Chlor 0.9% Inj 250 ML IV.SIG ONE (16:42)
[2018-09-04] MEDS ORDERED: Sod Chloride 0.9% Inj 1,000 ML IV.SIG SCH (16:45)
[2018-09-04] MEDS ORDERED: Bisacodyl 10 MG Supp RECTAL PRN (17:07)
[2018-09-04] MEDS ORDERED: Acetaminophen 325 MG Tablet PO PRN ×2 (17:07→18:22)
[2018-09-04] MEDS ORDERED: Dextrose 50% in Water 50 ML Vial IV.PUSH PRN (17:17)
--- NOTE | 2018-09-04 17:42 | P.HPIM ---
History of Present Illness Service: [facility] Primary Care Physician: Syed Luis MD Chief Complaint: Nausea and vomiting History of Present Illness: Mrs. Swanson is a pleasant 77-year-old elderly white female with significant past medical history of osteoarthritis, wheelchair-bound , hyperlipidemia, CAD, CVA, type 2 diabetes. Patient presented to the emergency room via EMS for nausea and vomiting. Patient does not recall how she became ill. According to son who is at bedside, patient resides at home with one of his sisters and has caregivers who come in and assist with ADLs. Per sister story, patient was getting bathed when she suddenly leaned forward became nauseous and started vomiting, she was noted shaking and sweating. At that time EMS was called and patient was brought in for evaluation. Patient has no recall of becoming ill, she does remember eating breakfast without any problems. Son believes that she became ill because she ate some bad barbecue last night. There was no diarrhea reported, no abdominal pain, no fever, no chills. Patient is a poor historian, son denies any history of dementia.Patient denies any chest pain, no shortness of breath, she is resting comfortably. Denies any urinary symptoms, no diarrhea. States she was doing well yesterday. Son endorses that patient has been wheelchair-bound for a couple years, has history of sacral fractures and osteoarthritis.Patient was evaluated in the emergency room, CBC significant for bandemia. No fever. Was noted dehydrated, creatinine 1.43. Lactic acid 2.4. Urinalysis did not show any infection. Chest x-ray did not show any significant findings. CT of the abdomen showed a 4.7 mass in the lower lateral right lung partially included in the [id number] skin, moderate size pleural effusion, findings suspicious for malignancy. Moderate-sized bilateral fat-containing inguinal hernias. A CT of the chest has been ordered and is pending. Patient endorses history of tobacco abuse, quit 20 years ago.Pt. was given IVF, Zithromax and BC x 2 were done. Pt. is admitted for further evaluation and treatment. Diagnosis (1) History of intravascular stent placement: (2) CVA (cerebral vascular accident): (3) Hyperlipidemia: (4) Wheelchair bound: (5) Diabetes 1.5, managed as type 2: (6) Hypertension: (7) Osteoarthritis: (8) Nausea and vomiting: (9) ELVA (acute kidney injury): (10) Mass of left lung: (11) Pleural effusion: Review of Systems ROS Unobtainable: other (ROS reviewed with pt, limited, pt. forgetful. Negative except as noted in HPI ) [facility] Medical History Medical History CVA (cerebral vascular accident) (Chronic) Diabetes 1.5, managed as type 2 (Chronic) Hx of hysterectomy (Chronic) Hyperlipidemia (Chronic) Hypertension (Chronic) Osteoarthritis (Chronic) Wheelchair bound (Chronic) Surgical History Surgical History History of intravascular stent placement (Chronic) Social History Social History Substance History: No History of Abuse Smoking Status: Never smoker How Often Do You Have a Drink Containing Alcohol: Never Recent Travel in [facility] within the Last 8 Weeks: No Recent Out of Country Travel within the Last 8 Weeks: No Immunization History Tetanus Immunization: Unsure Medications and Allergies Allergies Allergy/AdvReac Type Severity Reaction Status Date / Time No Known Allergies Allergy Verified 09/04/18 12:34 Home Medications Medication Instructions Recorded Confirmed Type alendronate [Fosamax] 70 mg PO QWEEK 09/04/18 09/04/18 History atorvastatin [Lipitor] 80 mg PO QPM 09/04/18 09/04/18 History carvedilol [Coreg] 6.25 mg PO BID 09/04/18 09/04/18 History lisinopril 10 mg PO DAILY 09/04/18 09/04/18 History metformin 500 mg PO BID 09/04/18 09/04/18 History Active Medications: Active Medications Acetaminophen (Tylenol) 650 mg PO Q4H PRN PRN Reason: Temp > 100.4 Al Hydroxide/Mg Hydroxide (Milk Of Bradley Liq) 30 ml PO Q12H PRN PRN Reason: Mild Constipation Atorvastatin Calcium (Lipitor) 80 mg PO QPM MARIA Bisacodyl (Dulcolax Supp) 10 mg RECTAL DAILY PRN PRN Reason: SEVERE CONSITIPATION Carvedilol (Coreg) 6.25 mg PO BID MARIA Dextrose (D50w Vial) 50 ml IV.PUSH UNSCH PRN PRN Reason: PER HYPOGLYCEMIA PROTOCOL Glucagon (Glucagon Inj) 1 mg OTHER PRN PRN PRN Reason: for Hypoglycemia Protocol Heparin Sodium (Porcine) (Heparin Inj) 5,000 units SQ Q12H MARIA Sodium Chloride (Ns Inj) 1,000 mls @ 1,000 mls/hr IV.SIG BOLUS MARIA Stop: 09/04/18 17:44 Last Admin: 09/04/18 17:19 Dose: 1,000 mls/hr Azithromycin 500 mg/ Sodium (Chloride) 250 mls @ 250 mls/hr IV.SIG ONCE ONE Stop: 09/04/18 17:41 Sodium Chloride (Ns Inj) 1,000 mls @ 75 mls/hr IV.CONT .[id number] [facility] Insulin Aspart (Novolog Insulin Correctional Sugar Inj) 0 unit SQ ACHS MARIA; Protocol Lactulose (Lactulose Liq) 30 ml PO DAILY PRN PRN Reason: SEVERE CONSITIPATION Ondansetron HCl (Zofran Inj) 4 mg IV.PUSH Q6H PRN PRN Reason: NAUSEA OR VOMITING Senna/Docusate Sodium (Kamila-Colace) 1 tab PO BID [facility] Sennosides (Senokot) 17.2 mg PO Q12H PRN PRN Reason: Moderate Constipation Sodium Chloride (Ns Flush) 2 ml IV.FLUSH PRN PRN PRN Reason: FLUSH AFTER USING IV ACCESS Sodium Chloride (Ns Flush) 2 ml IV.FLUSH BID AMRIA Sodium Chloride (Ns Flush) 2 ml IV.FLUSH PRN PRN PRN Reason: FLUSH AFTER USING IV ACCESS Physical Exam Vital signs: Vital Signs 09/04/18 12:35 09/04/18 12:37 09/04/18 16:33 Temperature 98.4 F Pulse Rate 89 89 85 Respiratory Rate 18 18 18 Blood Pressure 147/64 H 147/64 H 112/57 L Pulse Oximetry 92 L 92 L 95 Intake & Output 09/03/18 09/04/18 09/04/18 18:59 06:59 18:59 Weight 72.575 kg Narrative: GENERAL: 77-year-old well-developed well-nourished SKIN: Warm and dry. HEAD: Atraumatic. Normocephalic. EYES: Pupils equal and round. No scleral icterus. No injection or drainage. ENT: No nasal bleeding or discharge. Mucous membranes pink and moist. NECK: Trachea midline. No JVD. CARDIOVASCULAR: Regular rate and rhythm. RESPIRATORY: No accessory muscle use. Clear to auscultation. Breath sounds equal bilaterally. GASTROINTESTINAL: Abdomen soft, non-tender, nondistended. Hepatic and splenic margins not palpable. MUSCULOSKELETAL: Extremities without clubbing, cyanosis, or edema. No obvious deformities. NEUROLOGICAL: Awake and alert x2. Forgetful. No obvious cranial nerve deficits. Motor grossly within normal limits. Bilateral upper extremity strength 4 out of 5, lower extremity strength 3 out of 5. Muscle atrophy noted lower extremities. Normal speech. PSYCHIATRIC: Appropriate mood and affect; insight and judgment normal. Urinary Catheter Management Straight: Cath placed during this visit: yes Reason for continuing: Not indwelling catheter Insertion date: 09/04/18 Insertion time: 14:24 Results Labs CBC & Chem 7: 09/04/18 13:05 09/04/18 13:05 Imaging Impressions Abdomen/Pelvis CT 09/04/18 15:14 CONCLUSION: 1. 1.7 cm mass in the lower lateral right lung partially included in the field- of-view scan. Also moderate size right pleural effusion. The findings are suspicious for malignancy. Recommend CT thorax to evaluate for additional lesions. 2. Moderate-sized bilateral fat-containing inguinal hernias. Chest X-Ray 09/04/18 15:14 CONCLUSION: The lungs are clear. Caprini VTE Risk Assessment Caprini VTE Risk Assessment: Moderate/High Risk (score >= 2) Caprini Risk Assessment Model: Point Value = 1 Point Value = 2 Point Value = 3 Point Value = 5 Age 41-60 Minor surgery BMI > 25 kg/m2 Swollen legs Varicose veins or History of unexplained or recurrent spontaneous Oral contraceptives or hormone replacement Sepsis (< 1 month) Serious lung disease, including pneumonia (< 1 month) Abnormal pulmonary function Acute myocardial infarction Congestive heart failure (< 1 month) History of inflammatory bowel disease Medical patient at bed rest Age 61-74 Arthroscopic surgery Major open surgery (> 45 min) Laparoscopic surgery (> 45 min) Malignancy Confined to bed (> 72 hours) Immobilizing plaster cast Central venous access Age >= 75 History of VTE Family history of VTE Factor V Leiden Prothrombin [id number] Lupus anticoagulant Anticardiolipin antibodies Elevated serum homocysteine Heparin-induced thrombocytopenia Other congenital or acquired thrombophilia Stroke (< 1 month) Elective arthroplasty Hip, pelvis, or leg fracture Acute spinal cord injury (< 1 month) Prophylaxis Regimen: Total Risk Factor Score Risk Level Prophylaxis Regimen 0-1 Low Early ambulation 2 Moderate Order ONE of the following: *Sequential Compression Device (SCD) *Heparin 5000 units SQ BID 3-4 Higher Order ONE of the following medications: *Heparin 5000 units SQ TID *Enoxaparin/Lovenox 40 mg SQ daily (WT < 150 kg, CrCl > 30 mL/min) *Enoxaparin/Lovenox 30 mg SQ daily (WT < 150 kg, CrCl > 10-29 mL/min) *Enoxaparin/Lovenox 30 mg SQ BID (WT < 150 kg, CrCl > 30 mL/min) AND/OR *Sequential Compression Device (SCD) 5 or more Highest Order ONE of the following medications: *Heparin 5000 units SQ TID (Preferred with Epidurals) *Enoxaparin/Lovenox 40 mg SQ daily (WT < 150 kg, CrCl > 30 mL/min) *Enoxaparin/Lovenox 30 mg SQ daily (WT < 150 kg, CrCl > 10-29 mL/min) *Enoxaparin/Lovenox 30 mg SQ BID (WT < 150 kg, CrCl > 30 mL/min) AND *Sequential Compression Device (SCD) Assessment and Plan (1) Nausea and vomiting: Code(s): R11.2 - Nausea with vomiting, unspecified Status: Acute (2) Pleural effusion: Code(s): J90 - Pleural effusion, not elsewhere classified Status: Acute (3) ELVA (acute kidney injury): Code(s): N17.9 - Acute kidney failure, unspecified Status: Acute (4) Mass of left lung: Code(s): R91.8 - Other nonspecific abnormal finding of lung field Status: Acute (5) History of intravascular stent placement: Code(s): Z95.828 - Presence of other vascular implants and grafts Status: Chronic (6) CVA (cerebral vascular accident): Code(s): I63.9 - Cerebral infarction, unspecified Status: Chronic (7) Hyperlipidemia: Code(s): E78.5 - Hyperlipidemia, unspecified Status: Chronic (8) Wheelchair bound: Code(s): Z99.3 - Dependence on wheelchair Status: Chronic (9) Diabetes 1.5, managed as type 2: Code(s): E13.9 - Other specified diabetes mellitus without complications Status: Chronic (10) Hypertension: Code(s): I10 - Essential (primary) hypertension Status: Chronic (11) Osteoarthritis: Code(s): M19.90 - Unspecified osteoarthritis, unspecified site Status: Chronic Plan 77-year-old elderly white female with significant past medical history of osteoarthritis, wheelchair-bound, hyperlipidemia, CAD, CVA, type 2 diabetes. Patient presented to the emergency room via EMS for nausea and vomiting. Has no recall of how she became ill. Possibly due to eating bad barbecue. During evaluation, she was noted with acute kidney injury, dehydration, lactic acidosis and bandemia. No evidence of infection in UA and CXR. CT of the abdomen with incidental findings of right lung mass and moderate-sized pleural effusion. Nausea and vomiting possibly due to gastroenteritis -continue with IVF -Zofran PRN -Replace electrolytes as needed -monitor renal function -Clear liquid diet for now ELVA -continue IVF -Follow renal function -Hold Lisinopril for now -Hold Metformin for now CT abd. with incidental findings of right lung mass and moderate sized pleural effusion Hx of tobacco abuse, quit 20 years ago. Denies any wt. loss. -CT chest ordered, currently pending DM II -Accuchecks AC/HS with ISS -Hold Metformin for now Hx of CVA Hyperlipidemia HTN CAD, hx of stent -continue statin -Continue Carvedilol Hx of OA Wheelchair bound Physical debility -PT eval Heparin for DVT prophylaxis Consult case management for discharge planning Plan of care discussed with patient and son, questions answered in detail. Code Status: Full code Discussed Condition With: RN, pt, pt's son Ingrismireille Discharge Planning: Poss ma home with [facility] in 1-2 days
--- NOTE | 2018-09-04 17:56 | CT ---
EXAM DATE: 09/04/2018 5:46 PM EST AGE/SEX: 77 years / Female INDICATIONS: Evaluate for mass. Patient presented with fever and cough. Patient had an abnormal abdo men CT demonstrating 1.7 cm mass in the lower right lung which is partially visualized. Right pleural effusion. CLINICAL DATA: This is the patient's initial encounter. Patient reports that signs and symptoms have been present for 1 day and indicates a pain score of 0/10. MEDICAL/SURGICAL HISTORY: Cerebrovascular disease. . Intravascular stent. RADIATION DOSE: 7.14 CTDI (mGy) COMPARISON: [facility] [place] ABDOM[place] & PELVIS W CONTRAST, 09/04/2018. . TECHNIQUE: Multiple contiguous axial images were obtained through the chest without contrast. Image s were obtained in suspended respiration using multiple row detector helical technique. Using automa haley exposure control and adjustment of the mA and/or kV according to patient size, radiation dose was kept as low as reasonably achievable to obtain optimal diagnostic quality images. DICOM format imag e data is available electronically for review and comparison. FINDINGS: Lungs: The lungs are symmetrically aerated. There is a 1.8 x 1.4 x 1.6 cm mildly lobular soft tissue mass which is pleural-based. This is located in the lateral aspect of the right lower lobe. There ar e no additional masses. There is underlying emphysema. There is mild atelectasis in the dependent por tion of the right lung base.. Mediastinum: There is good visualization of the great vessels of the middle mediastinum. There is a borderline pretracheal lymph node measuring up to approximately 1.4 cm. There is no definite hilar ad enopathy on this noncontrast examination. Coronary artery calcifications are noted. There is a small amount of pericardial fluid. Pleurae: There is a small right pleural effusion. Axillae: Unremarkable. Bony Structures: Unremarkable. Miscellaneous: The examination was extended to include the upper abdomen, and both adrenal glands ar e normal in size and configuration. A cyst is again noted in the upper pole the right kidney. CONCLUSION: 1. Right lower lobe 1.8 x 1.4 x 1.6 cm pleural-based soft tissue mass of concern for primary broncho genic carcinoma. There is a borderline prominent pretracheal lymph node. These findings could be furt her evaluated with PET CT to evaluate for hypermetabolic tumor. The lung mass would be amenable to CT -guided core biopsy. 2. Small right pleural effusion. 3. Small pericardial effusion. Electronically signed by: Rah Mcarthur MD Board Certified Radiologist 09/04/2018 5:54 PM EST
[2018-09-04] MEDS: Carvedilol 6.25 MG Tablet PO SCH (20:47)
[2018-09-04] MEDS: Heparin - SQ 10,000 UNITS/ML Vial SQ SCH ×2 (20:47→20:49)
[2018-09-04] MEDS: Sod Chloride 0.9% Inj 1,000 ML IV.CONT SCH (20:47)
[2018-09-04] MEDS: Senna/Docusate Sodium 8.6/50 MG Tablet PO SCH (20:47)
[2018-09-04] MEDS: Insulin NovoLOG Aspart Correctional Sugar Inj SQ SCH (23:23)
[2018-09-05] MEDS: Heparin - SQ 10,000 UNITS/ML Vial SQ SCH ×2 (05:41→17:51)
[2018-09-05 07:27] LABS: Baso % (Auto) 0.5 % (0.0-2.0); Eos # (Auto) 0.1 th/mm3 (0.0-0.4); Eos % (Auto) 2.5 % (0.0-4.0); Hematocrit 29.7 % (35.0-46.0); Hemoglobin 10.1 gm/dL (11.6-15.3); Lymph # (Auto) 0.4 th/mm3 (1.0-4.8); Lymph % (Auto) 16.8 % (9.0-44.0); Mean Corpuscular HGB Conc 33.8 % (32.0-36.0); Mean Corpuscular Hemoglobin 31.2 pg (27.0-34.0); Mean Corpuscular Volume 92.4 fL (80.0-100.0); Mean Platelet Volume 11.1 fL (7.0-11.0); Mono # (Auto) 0.3 th/mm3 (0.0-0.9); Mono % (Auto) 12.1 % (0.0-8.0); Neut # (Auto) 1.8 th/mm3 (1.8-7.7); Neut % (Auto) 68.1 % (16.0-70.0); Platelet Count 81 th/mm3 (150-450); Red Blood Count 3.22 mil/mm3 (4.00-5.30); Red Cell Distribution Width 15.3 % (11.6-17.2); White Blood Count 2.6 th/mm3 (4.0-11.0)
[2018-09-05 08:01] LABS: Calcium 7.1 mg/dL (8.5-10.1); Carbon Dioxide 26.4 meq/L (21.0-32.0); Potassium 3.6 meq/L (3.5-5.1)
[2018-09-05 08:21] LABS: Albumin 2.8 g/dL (3.4-5.0); Calcium-Albumin Corrected 8.1 mg/dL (8.5-10.1)
[2018-09-05 08:53] LABS: Eosinophils 5 % (0-4); Lymphocytes 14 % (9-44); Monocytes 10 % (0-8)
[2018-09-05 08:54] LABS: Ovalocytes 1+
[2018-09-05] MEDS: Sod Chloride 0.9% Inj 1,000 ML IV.CONT SCH (09:02)
[2018-09-05] MEDS: Senna/Docusate Sodium 8.6/50 MG Tablet PO SCH ×2 (09:03→21:11)
[2018-09-05] MEDS: Insulin NovoLOG Aspart Correctional Sugar Inj SQ SCH ×4 (09:12→21:11)
[2018-09-05] MEDS: Carvedilol 6.25 MG Tablet PO SCH ×2 (09:12→21:11)
--- NOTE | 2018-09-05 11:07 | P.PNIM ---
Subjective Interval history: Follow-up visit nausea with vomiting, RLL mass concerning for bronchogenic carcinoma Patient is sitting upright in bed. She denies nausea, vomiting or abdominal pain. She also denies chest pain, shortness of breath, palpitations, lower extremity edema/pain. Discussed finding of RLL mass with patient and need for additional testing and she is in agreement with plan of care. Patient is a former smoker but has quit 20 yrs ago. Patient used to smoke 1 ppd for approximately 20 yrs prior to quitting. Physical Exam Vital signs: Vital Signs 09/04/18 12:35 09/04/18 12:37 09/04/18 16:33 Temperature 98.4 F Pulse Rate 89 89 85 Respiratory Rate 18 18 18 Blood Pressure 147/64 H 147/64 H 112/57 L Pulse Oximetry 92 L 92 L 95 09/04/18 20:00 09/04/18 23:21 09/05/18 04:00 Temperature 97.6 F 98.4 F 98.6 F Pulse Rate 89 79 86 Respiratory Rate 20 18 20 Blood Pressure 151/70 H 107/58 L 134/71 Pulse Oximetry 93 L 92 L 92 L 09/05/18 08:00 Temperature 98.7 F Pulse Rate 76 Respiratory Rate 16 Blood Pressure 123/60 Pulse Oximetry 93 L Intake & Output 09/04/18 09/05/18 09/05/18 18:59 06:59 18:59 Intake Total 100 / 100 1250 / 1250 1000 / 1000 Balance 100 / 100 1250 / 1250 1000 / 1000 Weight 72.575 kg Intake: IV 100 / 100 1250 / 1250 1000 / 1000 NS Inj 1,000 ML @ 75 mls/hr IV. 1000 / 1000 CONT .[id number] [facility] Rx#:[id number] Azithromycin Inj 500 MG In NS 250 / 250 Inj 250 ML @ 250 mls/hr IV.SIG ONCE ONE Rx#:[id number] NS Inj 1,000 ML @ 1000 mls/hr 1000 / 1000 IV.SIG BOLUS [facility] Rx#:[id number] Rocephin Inj 1,000 MG In NS Inj 100 / 100 100 ML @ 200 mls/hr IV.SIG ONCE ONE Rx#:[id number] Other: # Incontinent Voids 2 Date of Last Bowel Movement 09/04/18 Narrative: GENERAL: 77-year-old well-developed well-nourished SKIN: Warm and dry. HEAD: Atraumatic. Normocephalic. EYES: Pupils equal and round. No scleral icterus. No injection or drainage. ENT: No nasal bleeding or discharge. Mucous membranes pink and moist. NECK: Trachea midline. No JVD. CARDIOVASCULAR: Regular rate and rhythm. RESPIRATORY: No accessory muscle use. Clear to auscultation. Breath sounds equal bilaterally. GASTROINTESTINAL: Abdomen soft, non-tender, nondistended. Hepatic and splenic margins not palpable. MUSCULOSKELETAL: Extremities without clubbing, cyanosis, or edema. No obvious deformities. NEUROLOGICAL: Awake and alert x2. Forgetful. No obvious cranial nerve deficits. Motor grossly within normal limits. Bilateral upper extremity strength 4 out of 5, lower extremity strength 3 out of 5. Muscle atrophy noted lower extremities. Normal speech. PSYCHIATRIC: Appropriate mood and affect; insight and judgment normal. Urinary Catheter Management Straight: Cath placed during this visit: yes Reason for continuing: Not indwelling catheter Insertion date: 09/04/18 Insertion time: 14:24 Results Labs CBC & Chem 7: 09/05/18 05:45 09/05/18 05:45 Labs: Microbiology 09/04/18 15:56 Blood - Peripheral Aerobic Blood Culture - Preliminary No growth in 1 day 09/04/18 15:56 Blood - Peripheral Anaerobic Blood Culture - Preliminary No growth in 1 day 09/04/18 14:50 Blood - Peripheral Aerobic Blood Culture - Preliminary No growth in 1 day 09/04/18 14:50 Blood - Peripheral Anaerobic Blood Culture - Preliminary No growth in 1 day Imaging Imaging: Impressions Abdomen/Pelvis CT 09/04/18 15:14 CONCLUSION: 1. 1.7 cm mass in the lower lateral right lung partially included in the field- of-view scan. Also moderate size right pleural effusion. The findings are suspicious for malignancy. Recommend CT thorax to evaluate for additional lesions. 2. Moderate-sized bilateral fat-containing inguinal hernias. Chest X-Ray 09/04/18 15:14 CONCLUSION: The lungs are clear. Chest CT 09/04/18 17:01 CONCLUSION: 1. Right lower lobe 1.8 x 1.4 x 1.6 cm pleural-based soft tissue mass of concern for primary bronchogenic carcinoma. There is a borderline prominent pretracheal lymph node. These findings could be further evaluated with PET CT to evaluate for hypermetabolic tumor. The lung mass would be amenable to CT- guided core biopsy. 2. Small right pleural effusion. 3. Small pericardial effusion. Assessment and Plan (1) History of intravascular stent placement: Code(s): Z95.828 - Presence of other vascular implants and grafts Status: Chronic (2) CVA (cerebral vascular accident): Code(s): I63.9 - Cerebral infarction, unspecified Status: Chronic (3) Hyperlipidemia: Code(s): E78.5 - Hyperlipidemia, unspecified Status: Chronic (4) Wheelchair bound: Code(s): Z99.3 - Dependence on wheelchair Status: Chronic (5) Diabetes 1.5, managed as type 2: Code(s): E13.9 - Other specified diabetes mellitus without complications Status: Chronic (6) Hypertension: Code(s): I10 - Essential (primary) hypertension Status: Chronic (7) Osteoarthritis: Code(s): M19.90 - Unspecified osteoarthritis, unspecified site Status: Chronic (8) Nausea and vomiting: Code(s): R11.2 - Nausea with vomiting, unspecified Status: Acute (9) ELVA (acute kidney injury): Code(s): N17.9 - Acute kidney failure, unspecified Status: Acute (10) Mass of left lung: Code(s): R91.8 - Other nonspecific abnormal finding of lung field Status: Acute (11) Pleural effusion: Code(s): J90 - Pleural effusion, not elsewhere classified Status: Acute Plan 77-year-old elderly white female with significant past medical history of osteoarthritis, wheelchair-bound, hyperlipidemia, CAD, CVA, type 2 diabetes. Patient presented to the emergency room via EMS for nausea and vomiting. Has no recall of how she became ill. Possibly due to eating bad barbecue. During evaluation, she was noted with acute kidney injury, dehydration, lactic acidosis and bandemia. No evidence of infection in UA and CXR. CT of the abdomen with incidental findings of right lung mass and moderate-sized pleural effusion. Right lower lobe lung mass and moderate sized pleural effusion, incidental finding -CT chest shows right lower lobe 1.8 x 1.4 x 1.6 cm pleural-based soft tissue mass of concern for primary bronchogenic carcinoma -Hx of tobacco abuse, quit 20 years ago. -pulmonary consulted, we appreciate their input -NPO after midnight -IR consult for CT guided biopsy in am -check PTT/PT/INR Nausea and vomiting possibly due to gastroenteritis -improved -continue with IVF -Zofran PRN -Replace electrolytes as needed -monitor renal function -cardiac/diabetic diet, NPO after midnight Pancytopenia -WBC 2.6, Hgb 10.1, Hct 29.7 & Plt 81 -monitor ELVA -improved s/p hydration with IV fluids -continue IVF -Follow renal function -Hold Lisinopril for now -Hold Metformin for now DM II -Accuchecks AC/HS with ISS -Hold Metformin for now Hx of CVA Hyperlipidemia HTN CAD, hx of stent -continue statin -Continue Carvedilol Hx of OA Wheelchair bound Physical debility -PT eval Heparin for DVT prophylaxis Consult case management for discharge planning Plan of care discussed with patient and son, questions answered in detail. Code Status: Full code Discussed Condition With: RN, pt, Dr. Hall Discharge Planning: Poss dc home with [facility] in 1-2 days Attending Attestation The exam, history, and the medical decision-making described in the above note were completed with the assistance of the mid-level provider. I reviewed and agree with the findings presented. I attest that I had a [id number] encounter with the patient on the same day, and personally performed and documented my assessment and findings in the medical record. Progress Note: Quality VTE Deep Vein Thrombosis/Pulmonary Embolism Present on Admission: No _ (1) Nausea and vomiting Qualifiers: Vomiting Intractability: Vomiting type:
--- NOTE | 2018-09-05 14:05 | MB ---
cc: Shlomo Armas MD DATE: 09/05/2018 PULMONARY CONSULTATION HISTORY OF PRESENT ILLNESS: The patient is a 77-year-old female with past medical history of CVA, hyperlipidemia, diabetes mellitus, hypertension, osteoarthritis, who presented to [facility] ED via EMS for intractable nausea and vomiting. The patient was admitted under hospitalist service on 09/04/2018 and was placed on IV hydration. The patient had a mild acute kidney injury with creatinine of 1.43 which improved to 1.06. She had a CT scan of the chest which showed 1.8 cm x 1.4 cm x 1.6 cm right lower lobe pleural based, soft tissue mass concerning for primary bronchogenic carcinoma. Also, she has a small right pleural effusion. When seen, the patient is on room air oxygen. She denies any chest pain, shortness of breath, cough or any constitutional symptoms. She denies any weight loss or hemoptysis. She states that her appetite has been fair. She quit smoking 20 years ago and she used to smoke up to a pack a day for many years. She denies any use of oxygen or bronchodilators at home. The patient denies any cough or constitutional symptoms. PAST MEDICAL HISTORY: Significant for CVA, diabetes mellitus, hypertension, hyperlipidemia, osteoarthritis, wheelchair bound. PAST SURGICAL HISTORY: Previous hysterectomy, history of intravascular stent placement. SOCIAL HISTORY: Quit smoking 20 years ago, used to smoke a pack a day for many years; nonsmoker. ALLERGIES: NO KNOWN DRUG ALLERGIES. FAMILY HISTORY: No history of lung cancer. ACTIVE MEDICATIONS: Include: 1. Coreg. 2. Insulin. 3. Heparin subcutaneous. REVIEW OF SYSTEMS: As per HPI; review of systems unremarkable. PHYSICAL EXAMINATION: GENERAL: A 77-year-old female lying in bed in no acute distress. VITAL SIGNS: Temperature 99.4, pulse 77, respiratory rate of 18, blood pressure 119/56, saturation 94% on room air. HEENT: Atraumatic, normocephalic. Pupils are equal, round, reactive to light and accommodation. Extraocular muscles intact. Conjunctivae pink. Nonicteric sclerae. Oral mucosa within normal. NECK: Supple. No JVD, adenopathy or thyromegaly. Trachea in the midline. CARDIOVASCULAR: Regular rate and rhythm. Normal S1, S2. No murmurs, rubs or gallops noted. PULMONARY: Bilateral equal air entry. No rales or wheezing. ABDOMEN: Soft, nontender. No distention. Positive bowel sounds. EXTREMITIES: No cyanosis, clubbing or edema. NEUROLOGIC: No focal sensory deficit. RADIOGRAPHIC STUDIES: 1. Chest x-ray on 09/04/2018 showed clear lungs. 2. CT scan of the chest showed 1.8 cm x 1.4 cm x 1.6 cm right lower lobe pleural based soft tissue mass. IMPRESSION: 1. Right lower lobe mass, 1.8 cm x 1.4 cm x 1.6 cm; pleural based, need to rule out bronchogenic carcinoma. 2. Small right pleural effusion. 3. Remote history of tobacco use. 4. Mild acute kidney injury, improving. 5. Pancytopenia. 6. Hypertension. 7. Cerebral vascular accident. 8. Hyperlipidemia. 9. Diabetes mellitus. RECOMMENDATIONS: 1. Oxygen p.r.n. to maintain sats above 92%. 2. Bronchodilators on a p.r.n. basis. 3. CT scan of the chest. Findings discussed with the patient and she is agreeable to proceed with a CT-guided lung biopsy to rule out bronchogenic carcinoma. We will consult IR. 4. Continue with IV hydration. Monitor renal function and avoid nephrotoxins. 5. Monitor for signs of infection, which include fever and WBC. Blood cultures from 09/04/2018 shows no growth to date. 6. Monitor CBC and we will check a coagulation profile. 7. Further recommendations will be based on hospital course. Thank you for this consultation and allowing us to participate in this patient's care. MD JOSH Vargas/arcelia , 01:17 PM , 01:28 PM
[2018-09-05 15:36] LABS: Activated Partial Thrombo Time 30.5 sec (23.4-31.7); Prothrombin Time 10.4 sec (9.8-11.6)
[2018-09-06] MEDS: Heparin - SQ 10,000 UNITS/ML Vial SQ SCH ×2 (07:30→18:57)
--- NOTE | 2018-09-06 08:43 | P.PNIM ---
Subjective Interval history: f/u; lung mass in no acute distress. denies sob or pain. no fever. Physical Exam Vital signs: Vital Signs 09/05/18 12:00 09/05/18 16:00 09/05/18 19:15 Temperature 99.4 F 99.0 F Pulse Rate 77 80 Respiratory Rate 18 16 Blood Pressure 119/56 L 139/65 Pulse Oximetry 94 L 90 L 95 09/05/18 20:30 09/06/18 00:40 09/06/18 04:00 Temperature 98 F 98.2 F 97.5 F L Pulse Rate 78 74 75 Respiratory Rate 18 18 18 Blood Pressure 137/83 127/60 140/76 Pulse Oximetry 100 94 L 93 L 09/06/18 08:00 Temperature 97.5 F L Pulse Rate 75 Respiratory Rate 18 Blood Pressure 158/74 H Pulse Oximetry 100 Intake & Output 09/05/18 09/06/18 09/06/18 18:59 06:59 18:59 Intake Total 1480 / 1480 Balance 1480 / 1480 Weight 57.8 kg Intake: IV 1000 / 1000 NS Inj 1,000 ML @ 75 mls/hr IV. 1000 / 1000 CONT .[id number] [facility] Rx#:[id number] Oral 480 / 480 Other: # Voids 2 Date of Last Bowel Movement 09/04/18 09/04/18 Constitutional no acute distress Routine Respiratory Exam Present CTA bilaterally Routine Cardiovascular Exam Present RRR Routine Abdominal Exam Present soft Routine Extremities Exam Comments: no pedal edema. Routine Neurological Exam Present alert and oriented X3 Urinary Catheter Management Straight: Cath placed during this visit: yes Reason for continuing: Not indwelling catheter Insertion date: 09/04/18 Insertion time: 14:24 Results Labs CBC & Chem 7: 09/05/18 05:45 09/05/18 05:45 Labs: Microbiology 09/04/18 15:56 Blood - Peripheral Aerobic Blood Culture - Preliminary No growth in 1 day 09/04/18 15:56 Blood - Peripheral Anaerobic Blood Culture - Preliminary No growth in 1 day 09/04/18 14:50 Blood - Peripheral Aerobic Blood Culture - Preliminary No growth in 1 day 09/04/18 14:50 Blood - Peripheral Anaerobic Blood Culture - Preliminary No growth in 1 day Assessment and Plan (1) History of intravascular stent placement: Code(s): Z95.828 - Presence of other vascular implants and grafts Status: Chronic (2) CVA (cerebral vascular accident): Code(s): I63.9 - Cerebral infarction, unspecified Status: Chronic (3) Hyperlipidemia: Code(s): E78.5 - Hyperlipidemia, unspecified Status: Chronic (4) Wheelchair bound: Code(s): Z99.3 - Dependence on wheelchair Status: Chronic (5) Diabetes 1.5, managed as type 2: Code(s): E13.9 - Other specified diabetes mellitus without complications Status: Chronic (6) Hypertension: Code(s): I10 - Essential (primary) hypertension Status: Chronic (7) Osteoarthritis: Code(s): M19.90 - Unspecified osteoarthritis, unspecified site Status: Chronic (8) Nausea and vomiting: Code(s): R11.2 - Nausea with vomiting, unspecified Status: Acute (9) ELVA (acute kidney injury): Code(s): N17.9 - Acute kidney failure, unspecified Status: Acute (10) Mass of left lung: Code(s): R91.8 - Other nonspecific abnormal finding of lung field Status: Acute (11) Pleural effusion: Code(s): J90 - Pleural effusion, not elsewhere classified Status: Acute Plan A/P Right lower lobe lung mass and moderate sized pleural effusion, incidental finding -CT chest shows right lower lobe 1.8 x 1.4 x 1.6 cm pleural-based soft tissue mass of concern for primary bronchogenic carcinoma -Hx of tobacco abuse, quit 20 years ago. -pulmonary consulted, we appreciate their input -NPO after midnight -IR consult for CT guided biopsy in am Nausea and vomiting possibly due to gastroenteritis -improved -continue with IVF -Zofran PRN -Replace electrolytes as needed -monitor renal function -cardiac/diabetic diet, NPO after midnight Pancytopenia -monitor ELAV -improved s/p hydration with IV fluids -continue IVF -Follow renal function -Hold Lisinopril for now -Hold Metformin for now DM II -Accuchecks AC/HS with ISS -Hold Metformin for now Hx of CVA Hyperlipidemia HTN CAD, hx of stent -continue statin -Continue Carvedilol Hx of OA Wheelchair bound Physical debility -PT eval Heparin for DVT prophylaxis Discharge Planning: for CT-guided biopsy of the lung mass. Progress Note: Quality VTE Deep Vein Thrombosis/Pulmonary Embolism Present on Admission: No _ (1) Nausea and vomiting Qualifiers: Vomiting Intractability: Vomiting type:
[2018-09-06] MEDS: Insulin NovoLOG Aspart Correctional Sugar Inj SQ SCH ×4 (09:51→21:54)
[2018-09-06] MEDS: Senna/Docusate Sodium 8.6/50 MG Tablet PO SCH ×2 (09:53→21:45)
[2018-09-06] MEDS: Carvedilol 6.25 MG Tablet PO SCH ×2 (09:53→21:45)
--- NOTE | 2018-09-06 10:42 | P.PNPL ---
Subjective Interval history: Patient is lying in bed in NAD. On 2L oxygen. For CT guided lung biopsy today. Physical Exam Vital signs: Vital Signs 09/05/18 12:00 09/05/18 16:00 09/05/18 19:15 Temperature 99.4 F 99.0 F Pulse Rate 77 80 Respiratory Rate 18 16 Blood Pressure 119/56 L 139/65 Pulse Oximetry 94 L 90 L 95 09/05/18 20:30 09/06/18 00:40 09/06/18 04:00 Temperature 98 F 98.2 F 97.5 F L Pulse Rate 78 74 75 Respiratory Rate 18 18 18 Blood Pressure 137/83 127/60 140/76 Pulse Oximetry 100 94 L 93 L 09/06/18 08:00 Temperature 97.5 F L Pulse Rate 75 Respiratory Rate 18 Blood Pressure 158/74 H Pulse Oximetry 100 Intake & Output 09/05/18 09/06/18 09/06/18 18:59 06:59 18:59 Intake Total 1480 / 1480 Balance 1480 / 1480 Weight 57.8 kg Intake: IV 1000 / 1000 NS Inj 1,000 ML @ 75 mls/hr IV. 1000 / 1000 CONT .[id number] [facility] Rx#:[id number] Oral 480 / 480 Other: # Voids 2 Date of Last Bowel Movement 09/04/18 09/04/18 - Constitutional no acute distress, average body habitus - Routine HEENT Exam Head: Present: normocephalic, atraumatic Eye: Present: EOMI, PERRL, normal accommodation, conjunctivae pink ENT: Present: mucous membranes moist - Routine Neck Exam Present: supple, full ROM, trachea midline - Routine Respiratory Exam Present: CTA bilaterally - Routine Cardiovascular Exam Present: RRR, S1, S2 - Routine Abdominal Exam Present: soft, normoactive bowel sounds - Routine Extremities Exam Present: full ROM, pulses intact - Routine Skin Exam Present: intact, dry - Routine Neurological Exam Present: alert, oriented X3, CN II-XII intact - Urinary Catheter Management Straight Cath placed during this visit: yes Reason for continuing: Not indwelling catheter Insertion date: 09/04/18 Insertion time: 14:24 Assessment and Plan - Plan 1. Right lower lobe mass, 1.8 cm x 1.4 cm x 1.6 cm; pleural based, r/o bronchogenic carcinoma. 2. Small right pleural effusion. 3. Remote history of tobacco use. 4. Mild acute kidney injury, improving. 5. Pancytopenia. 6. Hypertension. 7. CVA. 8. Hyperlipidemia. 9. Diabetes mellitus. Plan Continue with Oxygen maintain sats >92%. Bronchodilators For CT guided lung biopsy today Monitor for signs of infection, which include fever and WBC. Blood cultures from 09/04: Negative Monitor CBC Continue treatment plan
[2018-09-06] MEDS ORDERED: fentaNYL Citrate Inj 250 MCG/5 ML Ampul ONE (12:47)
--- NOTE | 2018-09-06 14:03 | P.RAD ---
Post CT Procedure Prog Note - Pre Procedure Diagnosis (1) Pulmonary nodule, right (2) Mass of left lung - Post Procedure Diagnosis (1) Pulmonary nodule, right - Procedure Information Procedure Date: 09/06/18 Supervising Radiologist: Manas Diaz MD Estimated blood loss (mL): 1 Anesthesia: Local, Analgesia, Conscious Sedation - Plan of Activity Patient to Unit: ROPU Patient condition: Good See PACS Report for procedural detail/treatment. Biopsy CT right Lung Specimen: Core Biopsy (20 gauge x 3)
[2018-09-06] MEDS ORDERED: Lidocaine 1%/Epinephrine 1:100,000 Inj 20 ML Vial I-DERMAL ONE (14:15)
--- NOTE | 2018-09-06 14:26 | XR ---
EXAM DATE: 09/06/2018 2:14 PM EST AGE/SEX: 77 years / Female INDICATIONS: Post right lung biopsy. CLINICAL DATA: This is the patient's subsequent encounter. Patient reports that signs and symptoms h ave been present for 1 day and indicates a pain score of 0/10. MEDICAL/SURGICAL HISTORY: Cerebrovascular disease. . Intravascular stent. COMPARISON: [facility] – [place], CHEST 1V SINGLE AP, 09/04/2018. . FINDINGS: No significant pneumothorax. Persistent hazy opacity in the right lung consistent with small pleural effusion. Diffuse interstitial prominence unchanged from prior exam. Cardiomediastinal contours are w ithin normal limits. Remainder of the exam is unchanged. CONCLUSION: 1. No significant pneumothorax status post right lung mass biopsy. Electronically signed by: Tanmay Nicolas MD Board Certified Radiologist 09/06/2018 2:25 PM EST
--- NOTE | 2018-09-06 15:59 | CT ---
EXAM DATE: 09/06/2018 2:12 PM EST AGE/SEX: 77 years / Female INDICATIONS: Right lung mass. CLINICAL DATA: This is the patient's initial encounter. Patient reports that signs and symptoms have been present for 1 day and indicates a pain score of 0/10. MEDICAL/SURGICAL HISTORY: Hypertension. . Intravascular stent placement. COMPARISON: [facility] [place]ST W/O CONTRAST, 09/04/2018. . BIOPSY SITE: Right liver MEDICATION(S): 1mg 50mcg DEVICE(S): 20 gauge BARD biopsy needle 19 gauge Introducer Two . . PROCEDURE: CT guided Right liver biopsy Prior to the procedure informed consent was obtained. Any appropriate prior imaging studies were rev iewed. Using automated exposure control and adjustment of the mA and/or kV according to patient size , radiation dose was kept as low as reasonably achievable to obtain optimal diagnostic quality images . DICOM format image data is available electronically for review and comparison. The site was prepped in a sterile fashion. Full sterile technique was used, including cap, mask, gretchen rile gloves and gown and a large sterile sheet. Hand hygiene and 2% chlorhexidine and/or betadine/al cohol prep was utilized per protocol for cutaneous antisepsis. The skin and subcutaneous tissues wer e infiltrated with local anesthetic solution. With CT guidance the previously identified target was localized. Biopsy was performed using the presc ribed needle as above. Adequate hemostasis was obtained with compression at the puncture site. Follow-up CT scan reveals no pneumothorax. Conscious sedation was performed with the prescribed dosages and duration as above in the presence of an independent trained radiology nurse to assist in the monitoring of the patient. EKG and oximetry remained stable throughout the procedure. The patient tolerated the procedure well and there were no complications. The patient was sent to Radiology Outpatient Unit in stable condition. CONCLUSION: 1. Uncomplicated CT guided biopsy. Electronically signed by: Manas Diaz MD Board Certified Radiologist 09/06/2018 3:58 PM EST
[2018-09-06] MEDS: Sod Chloride 0.9% Inj 1,000 ML IV.CONT SCH (21:45)
[2018-09-07] MEDS: Heparin - SQ 10,000 UNITS/ML Vial SQ SCH ×2 (05:57→17:51)
[2018-09-07] MEDS: Carvedilol 6.25 MG Tablet PO SCH ×2 (09:19→20:51)
[2018-09-07] MEDS: Insulin NovoLOG Aspart Correctional Sugar Inj SQ SCH ×4 (09:19→20:51)
[2018-09-07] MEDS: Senna/Docusate Sodium 8.6/50 MG Tablet PO SCH ×2 (09:19→20:51)
--- NOTE | 2018-09-07 11:45 | P.PNPL ---
Subjective Interval history: Patient s/p CT guided lung biopsy yesterday. On 2L oxygen. Denies any SOB or CP. Physical Exam Vital signs: Vital Signs 09/06/18 12:00 09/06/18 14:15 09/06/18 14:30 Temperature 98.0 F 97.7 F Pulse Rate 76 84 76 Respiratory Rate 18 16 16 Blood Pressure 173/81 H 155/82 H 142/69 H Pulse Oximetry 100 94 L 97 09/06/18 14:45 09/06/18 16:00 09/06/18 19:23 Temperature 97.2 F L 98.1 F Pulse Rate 75 83 84 Respiratory Rate 16 18 17 Blood Pressure 146/73 H 164/102 H 168/98 H Pulse Oximetry 98 90 L 96 09/06/18 20:15 09/06/18 23:35 09/07/18 04:20 Temperature 98.7 F 98.6 F 98.1 F Pulse Rate 84 76 89 Respiratory Rate 18 17 17 Blood Pressure 168/98 H 136/69 182/79 H Pulse Oximetry 96 99 92 L 09/07/18 08:00 09/07/18 08:56 09/07/18 08:58 Temperature 97.9 F Pulse Rate 83 86 Respiratory Rate 19 25 H Blood Pressure 167/77 H Pulse Oximetry 100 98 Intake & Output 09/06/18 09/07/18 09/07/18 18:59 06:59 18:59 Intake Total 1480 / 1480 360 / 360 Balance 1480 / 1480 360 / 360 Weight 57.8 kg Intake: IV 1000 / 1000 NS Inj 1,000 ML @ 75 mls/hr IV. 1000 / 1000 CONT .[id number] [facility] Rx#:[id number] Oral 480 / 480 360 / 360 Other: # Voids 2 3 # Incontinent Voids 2 Date of Last Bowel Movement 09/04/18 09/04/18 09/07/18 # Bowel Movements 1 - Constitutional no acute distress - Routine HEENT Exam Head: Present: normocephalic, atraumatic Eye: Present: EOMI, PERRL, normal accommodation, conjunctivae pink ENT: Present: mucous membranes moist - Routine Neck Exam Present: supple, full ROM, trachea midline - Routine Respiratory Exam Present: CTA bilaterally - Routine Cardiovascular Exam Present: RRR, S1, S2 - Routine Abdominal Exam Present: soft, normoactive bowel sounds - Routine Extremities Exam Present: full ROM, pulses intact - Routine Neurological Exam Present: alert, oriented X3, CN II-XII intact - Urinary Catheter Management Straight Cath placed during this visit: yes Reason for continuing: Not indwelling catheter Insertion date: 09/04/18 Insertion time: 14:24 Assessment and Plan - Plan 1. Right lower lobe mass, 1.8 cm x 1.4 cm x 1.6 cm; pleural based, r/o bronchogenic carcinoma. 2. Small right pleural effusion. 3. Remote history of tobacco use. 4. Mild acute kidney injury, improving. 5. Pancytopenia. 6. Hypertension. 7. CVA. 8. Hyperlipidemia. 9. Diabetes mellitus. Plan Continue with Oxygen maintain sats >92%. Bronchodilators s/p CT guided lung biopsy 09/06 Follow up on Path results Will need staging workup and Onc eval if path confirms bronchogenic ca Blood cultures from 09/04: Negative Monitor CBC D/c IVF and watch for signs of fluid overload. Continue treatment plan
--- NOTE | 2018-09-07 12:22 | P.PNIM ---
Subjective Interval history: f/u; lung mass in no acute distress. however on two liters of oxygen via [place] daughter at the bedside. no new complaints. Physical Exam Vital signs: Vital Signs 09/06/18 14:15 09/06/18 14:30 09/06/18 14:45 Temperature 97.7 F Pulse Rate 84 76 75 Respiratory Rate 16 16 16 Blood Pressure 155/82 H 142/69 H 146/73 H Pulse Oximetry 94 L 97 98 09/06/18 16:00 09/06/18 19:23 09/06/18 20:15 Temperature 97.2 F L 98.1 F 98.7 F Pulse Rate 83 84 84 Respiratory Rate 18 17 18 Blood Pressure 164/102 H 168/98 H 168/98 H Pulse Oximetry 90 L 96 96 09/06/18 23:35 09/07/18 04:20 09/07/18 08:00 Temperature 98.6 F 98.1 F 97.9 F Pulse Rate 76 89 83 Respiratory Rate 17 17 19 Blood Pressure 136/69 182/79 H 167/77 H Pulse Oximetry 99 92 L 100 09/07/18 08:56 09/07/18 08:58 Temperature Pulse Rate 86 Respiratory Rate 25 H Blood Pressure Pulse Oximetry 98 Intake & Output 09/06/18 09/07/18 09/07/18 18:59 06:59 18:59 Intake Total 1480 / 1480 360 / 360 Balance 1480 / 1480 360 / 360 Weight 57.8 kg Intake: IV 1000 / 1000 NS Inj 1,000 ML @ 75 mls/hr IV. 1000 / 1000 CONT .[id number] [facility] Rx#:[id number] Oral 480 / 480 360 / 360 Other: # Voids 2 3 # Incontinent Voids 2 Date of Last Bowel Movement 09/04/18 09/04/18 09/07/18 # Bowel Movements 1 Constitutional no acute distress Routine Respiratory Exam Present CTA bilaterally Routine Cardiovascular Exam Present RRR Routine Abdominal Exam Present soft Routine Extremities Exam Comments: no pedal edema. Routine Neurological Exam Present alert and oriented X3 Urinary Catheter Management Straight: Cath placed during this visit: yes Reason for continuing: Not indwelling catheter Insertion date: 09/04/18 Insertion time: 14:24 Results Labs CBC & Chem 7: 09/05/18 05:45 09/05/18 05:45 Labs: Microbiology 09/04/18 15:56 Blood - Peripheral Aerobic Blood Culture - Preliminary No growth in 3 days 09/04/18 15:56 Blood - Peripheral Anaerobic Blood Culture - Preliminary No growth in 3 days 09/04/18 14:50 Blood - Peripheral Aerobic Blood Culture - Preliminary No growth in 3 days 09/04/18 14:50 Blood - Peripheral Anaerobic Blood Culture - Preliminary No growth in 3 days Imaging Imaging: Impressions Lung Biopsy CT 09/06/18 00:00 CONCLUSION: 1. Uncomplicated CT guided biopsy. Chest X-Ray 09/06/18 14:00 CONCLUSION: 1. No significant pneumothorax status post right lung mass biopsy. Assessment and Plan Plan A/P Right lower lobe lung mass and moderate sized pleural effusion, incidental finding -CT chest shows right lower lobe 1.8 x 1.4 x 1.6 cm pleural-based soft tissue mass of concern for primary bronchogenic carcinoma -Hx of tobacco abuse, quit 20 years ago. - s/p lung biopsy; will follow the pathology. -taper down the oxygen to keep O2 sat >90%. -pulmonary following. Nausea and vomiting possibly due to gastroenteritis -improved -continue with IVF -Zofran PRN -Replace electrolytes as needed -monitor renal function -cardiac/diabetic diet Pancytopenia -monitor ELVA -improved s/p hydration with IV fluids -continue IVF -Follow renal function -Hold Lisinopril for now -Hold Metformin for now DM II -Accuchecks AC/HS with ISS -Hold Metformin for now Hx of CVA Hyperlipidemia HTN CAD, hx of stent -continue statin -Continue Carvedilol Hx of OA Wheelchair bound Physical debility -PT eval Heparin for DVT prophylaxis Discharge Planning: when cleared by pulmonary and stable off oxygen. Progress Note: Quality VTE Deep Vein Thrombosis/Pulmonary Embolism Present on Admission: No
--- NOTE | 2018-09-07 22:24 | XR ---
EXAM DATE: 09/07/2018 10:19 PM EST AGE/SEX: 77 years / Female INDICATIONS: Pneumothorax. Right lung biopsy yesterday. CLINICAL DATA: This is the patient's initial encounter. Patient reports that signs and symptoms have been present for 1 day and indicates a pain score of 0/10. MEDICAL/SURGICAL HISTORY: . Cerebrovascular disease. . Intravascular stent. COMPARISON: [facility] [place], 09/[place]/2018. . FINDINGS: There is no significant pneumothorax. Progressive patchy airspace disease in the right mid to lower l rita zones with stable small right pleural effusion. Cardiomediastinal contours are within normal limi ts. Remainder of the exam is unchanged. CONCLUSION: 1. No significant pneumothorax. 2. Progressive patchy right mid to lower lung zone airspace disease which may reflect airspace blood products following biopsy. 3. Stable small right pleural effusion. Electronically signed by: Tanmay Nicolas MD Board Certified Radiologist 09/07/2018 10:22 PM [facility]
[2018-09-07] MEDS ORDERED: Etomidate Inj 40 MG/20 ML Vial IV.PUSH ONE (22:30)
[2018-09-07 22:37] LABS: ABG Base Excess -4.1 mmol/L (-2-2); ABG PCO2 72 mmHg (38-42); ABG PO2 174 mmHg (61-120)
--- NOTE | 2018-09-07 22:53 | P.PNADD ---
Addendum to Inpatient Note Reason for Addendum: Additional Documentation Additional information: S: Medical team paged at [phone] for [facility]. Per initial report, [facility] was called due to respiratory distress with the oxygenation. Upon arrival to the room patient was in severe respiratory distress, however was able to communicate that she was in no pain and had no other complaints other than her shortness of breath. Per nursing report, patient was initially admitted for gastrointestinal symptoms, however a pulmonary mass was found. Patient was then taken for biopsy yesterday and has been asymptomatic since procedure, per their report. Of note, per nursing staff, patient was asked previous to the medical team's arrival if she would like to be intubated to which she responded no. Upon the medical team's arrival and after the initial interview with exam, patient was again asked and initially stated she would not like to be intubated, however during the conversation patient's orientation became decreased and was not able to answer questions by the end of the exam likely related to her hypoxia. Therefore, her next of kin/daughter was contacted (Ms. Karla Diehl at [phone]). Ms. Diehl was updated on the patient's declining status. We discussed that upon admission, patient was listed as a full code and that at this current moment, despite stating she would not like to be intubated, her decrease in orientation does not allow her to be competent to make her medical decisions at this time. We then discussed her CODE STATUS and Ms. Diehl agreed to keeping her mother full code and is agreeable to intubating, CPR, and medications if indicated. O: VITALS: Heart rate 109, blood pressure 97/56, respiratory rate 30, pulse oximetry 84% GENERAL: Elderly female lying in bed appearing in acute respiratory distress. SKIN: Warm, diaphoretic without obvious rash on skin exam. HEENT: Atraumatic, normocephalic with extraocular motions intact. No rhinorrhea. No visible lymphadenopathy or jugulovenous distension appreciated. CARDIOVASCULAR: Tachycardic rate with regular rhythm. No obvious MGR appreciated. 2+ pulses in all 4 extremities appreciated. RESPIRATORY: Decreased breath sounds bilaterally with minimal auscultation of bilateral lungs appreciated. No CRW appreciated. Patient appears to be in acute respiratory distress with belly breathing as well as accessory muscle use. Patient only able to communicate in yes/no answers. Bandage of recent pulmonary biopsy appears clean dry and intact. GASTROINTESTINAL: Abdomen soft, non-tender, nondistended with positive bowel sounds. No masses appreciated. MUSCULOSKELETAL: No cyanosis or edema. No calf tenderness. No obvious signs of DVT. NEURO/PSYCH: Patient's neurologic status deteriorated during exam. She was initially able to answer yes/no questions, however became nonverbal during exam and after transported to ICU. Patient able to move all 4 extremities spontaneously. Extraocular muscles intact. AAOx0. GCS 10 (E4 V1 M4 5). A/P: Ms. Swanson is a 77-year-old female admitted for possible lung malignancy status post biopsy who presents in acute respiratory distress. Stat CBC, CMP, ABG, lactic acid, and chest x-ray ordered Bedside chest x-ray read significant for new possible airspace disease of right lower lung without obvious signs of pneumothorax or pulmonary edema when compared to 09/06 exam per Medical team read. AB.1//174/24 consistent with acute respiratory acidosis Due to declining status as well as acute respiratory acidosis with hypoxia, patient ordered for stat ICU transfer for likely intubation, Dr. De La Garza notified by nursing staff Signout given to Dr. De La Garza's in person and agrees to resume care Primary team to be contacted by nursing staff at this time
--- NOTE | 2018-09-07 23:06 | P.PCN ---
Date of procedure: 09/08/18 Procedure: PROCEDURE NOTE PROCEDURE: Endotracheal intubation INDICATION: Acute respiratory failure DETAILS OF PROCEDURE: The patient was placed in optimal position and preoxygenated with 100% FiO2 via [id number]. Oximeter oxygen saturation of 100% was obtained prior to laryngoscopy. The patient was administered etomidate 20 mg IV for sedation and rocuronium 50 mg IV.. Laryngoscopy was performed with a 3 Copilot laryngoscope blade and a grade I Cormack-Lehane view was obtained. On single attempt a size 8.0 endotracheal tube was visualized passing through the cords. Correct placement was confirmed with colorimetric CO2 detector. Breath sounds were equal bilaterally. No sounds auscultated over the stomach. The endotracheal tube was secured with a commercial tube ozuna at a depth of 21 cm at the lips. The patient was connected to the ventilator. The patient tolerated the procedure well without any apparent complication. Oxygen saturations were maintained 100% at all times. Stat chest x-ray was ordered.
[2018-09-07 23:36] LABS: Hematocrit 30.1 % (35.0-46.0); Hemoglobin 10.1 gm/dL (11.6-15.3); Mean Corpuscular HGB Conc 33.6 % (32.0-36.0); Mean Corpuscular Hemoglobin 31.3 pg (27.0-34.0); Mean Platelet Volume 10.4 fL (7.0-11.0); Platelet Count 81 th/mm3 (150-450); Red Blood Count 3.24 mil/mm3 (4.00-5.30); White Blood Count 4.9 th/mm3 (4.0-11.0)
[2018-09-07] MEDS ORDERED: Etomidate Inj 20 MG/10 ML Ampul IV.PUSH ONE (23:45)
[2018-09-07 23:46] LABS: Activated Partial Thrombo Time 28.1 sec (23.4-31.7); INR 1.1 Ratio
--- NOTE | 2018-09-07 23:47 | XR ---
EXAM DATE: 09/07/2018 11:33 PM EST AGE/SEX: 77 years / Female INDICATIONS: Post intubation. CLINICAL DATA: This is the patient's subsequent encounter. Patient reports that signs and symptoms h ave been present for 3 days and indicates a pain score of Nonresponsive. MEDICAL/SURGICAL HISTORY: . Cerebrovascular disease. . Intravascular stent. COMPARISON: C, CHEST 1V SINGLE AP, 09/07/2018. . FINDINGS: Endotracheal tube tip is 3 cm above the rocky. Aeration is improved with increase in lung volumes. P ersistent diffuse interstitial edema and basilar effusions. Cardiac contours are grossly unchanged. CONCLUSION: Satisfactory ET tube positioning with improved aeration. Electronically signed by: Zaid Park MD Board Certified Radiologist 09/07/2018 11:46 PM EST
[2018-09-08 00:07] LABS: Albumin 2.5 g/dL (3.4-5.0); Carbon Dioxide 23.3 meq/L (21.0-32.0); Magnesium 1.5 mg/dL (1.5-2.5); Potassium 3.9 meq/L (3.5-5.1); Total Protein 5.6 g/dL (6.4-8.2)
[2018-09-08] MEDS: Sod Chloride 0.9% Inj 1,000 ML IV.CONT SCH (00:39)
[2018-09-08] MEDS: Oral Hygiene Kit OROPHARYNG SCH ×5 (00:40→23:40)
[2018-09-08] MEDS: Propofol 1000 mg/100 ml Inj 1,000 MG/100 ML BOTTLE IV.CONT PRN ×3 (00:41→23:40)
--- NOTE | 2018-09-08 01:05 | P.CONCC ---
History of Present Illness Service: Critical care medicine Consult date: 09/08/18 Requesting Physician: Noni Mayers Reason for Consult: Respiratory distress Primary Care Provider: Syed Luis MD Chief Complaint: Nausea and vomiting History of Present Illness: History from patient is limited due to altered mental status. 77-year-old -Trist[place] female with past medical history of coronary artery disease, stroke, type 2 diabetes, hyperlipidemia, osteoarthritis resulting in wheelchair bound state, prior history of tobacco abuse. She originally presented to the emergency department on 09/06 with nausea and vomiting. During the course of her workup CT demonstrated mass in her right lower lung. She has undergone CT-guided biopsy 09/06 which demonstrated poorly differentiated squamous cell carcinoma. Cally Gonzales was called when she became acutely SOB, tachypneic, hypoxic, hypotensive with BP 90/50. Christian nurse concerned for impending cardiac arrest. Nurses report that patient said she did not want to be intubated, however her family was contacted and daughter indicated that she wanted her to be FULL CODE. Patient had agonal respirations on arrival to [facility] and was emergently intubated. Review of Systems All other systems reviewed negative except as stated in HPI PMFSH - History History Provided By: Patient, Research And Development Researcher / EMT - Medical History Medical History: Medical History (Last Reviewed 09/08/18 @ 10:41 by Amaya De La Garza MD) CVA (cerebral vascular accident) Diabetes 1.5, managed as type 2 Hx of hysterectomy Hyperlipidemia Hypertension Osteoarthritis Wheelchair bound - Surgical History Surgical History: Surgical History (Last Reviewed 09/08/18 @ 10:41 by Amaya De La Garza MD) History of intravascular stent placement - Family History Family History: Family History (Last Reviewed 09/08/18 @ 10:41 by Amaya De La Garza MD) Other Dementia - Tobacco History Second Hand Smoke Exposure: Yes Smoking Status: Former smoker - Alcohol History How Often Do You Have a Drink Containing Alcohol: Never - Substance Use History Substance History: No History of Abuse - Travel History Recent Travel in the [place] Within the Last 8 Weeks: No Recent Travel Out of the Country Within the Last 8 Weeks: No - Immunization History Tetanus Immunization: Unsure Medications and Allergies Active Medications: Active Medications Acetaminophen (Tylenol) 650 mg PO Q4H PRN PRN Reason: Temp > 100.4 Al Hydroxide/Mg Hydroxide (Milk Of Magnesia Liq) 30 ml PO Q12H PRN PRN Reason: Mild Constipation Albuterol (Duoneb Neb (Judith)) 1 ampul NEB Q4HR NEB [facility] Last Admin: 09/07/18 23:29 Dose: 1 ampul Albuterol (Albuterol Neb (Prn)) 2.5 mg NEB Q2HR NEB PRN PRN Reason: BREATHING Atorvastatin Calcium (Lipitor) 80 mg PO DAILY@1800 [facility] Last Admin: 09/07/18 17:52 Dose: 80 mg Bisacodyl (Dulcolax Supp) 10 mg RECTAL DAILY PRN PRN Reason: SEVERE CONSITIPATION Carvedilol (Coreg) 6.25 mg PO BID [facility] Last Admin: 09/07/18 20:51 Dose: 6.25 mg Chlorhexidine Gluconate (Peridex 0.12% Oral Kit) 15 ml OROPHARYNG BID@0800, 2000 [facility] Dextrose (D50w Vial) 50 ml IV.PUSH UNSCH PRN PRN Reason: PER HYPOGLYCEMIA PROTOCOL Glucagon (Glucagon Inj) 1 mg OTHER PRN PRN PRN Reason: for Hypoglycemia Protocol Heparin Sodium (Porcine) (Heparin Inj) 5,000 units SQ Q12H [facility] Last Admin: 09/07/18 17:51 Dose: 5,000 units Sodium Chloride (Ns Inj) 1,000 mls @ 75 mls/hr IV.CONT .[id number] [facility] Last Admin: 09/08/18 00:39 Dose: 75 mls/hr Propofol (Diprivan 1000 Mg/100 Ml Inj) 1,000 mg in 100 mls @ 1.734 mls/hr IV.CONT TITRATE PRN; Protocol PRN Reason: Per Protocol Last Admin: 09/08/18 00:41 Dose: 10 mcg/kg/min, 3.47 mls/hr Insulin Aspart (Novolog Insulin Correctional Sugar Inj) 0 unit SQ ACHS [facility]; Protocol Last Admin: 09/07/18 20:51 Dose: Not Given Labetalol HCl (Trandate Inj) 10 mg IV.PUSH Q6H PRN PRN Reason: SBP >165 Lactulose (Lactulose Liq) 30 ml PO DAILY PRN PRN Reason: SEVERE CONSITIPATION Miscellaneous Medication () 1 each OROPHARYNG 0000,0400,1200,1600 [facility] Last Admin: 09/08/18 00:40 Dose: 1 each Ondansetron HCl (Zofran Inj) 4 mg IV.PUSH Q6H PRN PRN Reason: NAUSEA OR VOMITING Senna/Docusate Sodium (Kamila-Colace) 1 tab PO BID [facility] Last Admin: 09/07/18 20:51 Dose: 1 tab Sennosides (Senokot) 17.2 mg PO Q12H PRN PRN Reason: Moderate Constipation Sodium Chloride (Ns Flush) 2 ml IV.FLUSH BID [facility] Last Admin: 09/07/18 20:51 Dose: 2 ml Sodium Chloride (Ns Flush) 2 ml IV.FLUSH PRN PRN PRN Reason: FLUSH AFTER USING IV ACCESS Allergies Allergy/AdvReac Type Severity Reaction Status Date / Time No Known Allergies Allergy Verified 09/04/18 12:34 Home Medications Medication Instructions Recorded Confirmed Type alendronate [Fosamax] 70 mg PO QWEEK 09/04/18 09/04/18 History atorvastatin [Lipitor] 80 mg PO QPM 09/04/18 09/04/18 History carvedilol [Coreg] 6.25 mg PO BID 09/04/18 09/04/18 History lisinopril 10 mg PO DAILY 09/04/18 09/04/18 History metformin 500 mg PO BID 09/04/18 09/04/18 History Physical Exam Vital signs: Vital Signs 09/07/18 04:20 09/07/18 08:00 09/07/18 08:56 Temperature 98.1 F 97.9 F Pulse Rate 89 83 86 Respiratory Rate 17 19 25 H Blood Pressure 182/79 H 167/77 H Pulse Oximetry 92 L 100 09/07/18 08:58 09/07/18 12:00 09/07/18 19:34 Temperature 97.8 F 98.3 F Pulse Rate 73 81 Respiratory Rate 19 19 Blood Pressure 154/72 H 165/90 H Pulse Oximetry 98 95 09/07/18 20:00 09/07/18 21:51 09/07/18 23:09 Temperature Pulse Rate 85 104 H Respiratory Rate 18 24 12 Blood Pressure 198/97 H Pulse Oximetry 100 09/07/18 23:34 Temperature Pulse Rate 92 H Respiratory Rate 12 Blood Pressure Pulse Oximetry Intake & Output 09/07/18 09/07/18 09/08/18 06:59 18:59 06:59 Intake Total 360 / 360 1000 / 1000 Balance 360 / 360 1000 / 1000 Weight 57.8 kg Intake: IV 1000 / 1000 NS Inj 1,000 ML @ 75 mls/hr IV. 1000 / 1000 CONT .[id number] [facility] Rx#:[id number] Oral / Other: # Voids 3 # Urine Diapers 3 Date of Last Bowel Movement 09/04/18 09/07/18 # Bowel Movements 1 Narrative: GENERAL: Elderly -[place] female who has agonal respirations SKIN: Warm and dry. HEAD: Atraumatic. Normocephalic. EYES: Pupils equal and round. No scleral icterus. No injection or drainage. ENT: No nasal bleeding or discharge. Mucous membranes pink and moist. NECK: Trachea midline. No JVD. CARDIOVASCULAR: Regular rate and rhythm. No murmurs rubs or gallops. RESPIRATORY: Tachypneic, with shallow agonal respirations, decreased air movement bilaterally. No audible wheeze. No rales. GASTROINTESTINAL: Abdomen soft, non-tender, nondistended. Bowel sounds present. MUSCULOSKELETAL: Extremities without clubbing, cyanosis, or edema. No obvious deformities. NEUROLOGICAL: Lethargic, localizes wihtout focal deficit but does not speak or follow commands. - Urinary Catheter Management Straight Cath placed during this visit: yes Reason for continuing: Not indwelling catheter Insertion date: 09/04/18 Insertion time: 14:24 Female External Cath placed during this visit: yes Reason for continuing: Not indwelling catheter Insertion date: 09/08/18 Insertion time: 00:00 Assessment and Plan - Problem List (1) Acute hypercapnic respiratory failure Code(s): J96.02 - Acute respiratory failure with hypercapnia Status: Acute (2) Pleural effusion Code(s): J90 - Pleural effusion, not elsewhere classified Status: Acute (3) ELVA (acute kidney injury) Code(s): N17.9 - Acute kidney failure, unspecified Status: Resolved (4) Nausea and vomiting Code(s): R11.2 - Nausea with vomiting, unspecified Status: Resolved (5) Right lower lobe lung mass Code(s): R91.8 - Other nonspecific abnormal finding of lung field Status: Acute - Assessment and Plan Plan: NEURO: Acute encephalopathy likely secondary to hypercapnia Propofol for sedation Target RASS -2 RESP: Acute hypercapnic respiratory failure Status post CT-guided biopsy right lower lobe mass Right pleural effusion With acute onset of shortness of breath and hypotension in patient with underlying malignancy and without evidence of pneumothorax, it is imperative to rule out pulmonary embolism. Obtained CT pulmonary angiogram was obtained and demonstrates no evidence of pulmonary embolus. She does have right pleural effusion, may be reactive due to malignancy or biopsy/post-procedure hemothorax , will consider thoracentesis. Treat bronchospasm with DuoNeb every 4 hours. Albuterol every 2 hours as needed. Solu-Medrol 60 mg IV every 6 hours CV: Hypertension Hyperlipidemia Initially hypotensive but now hypertensive so we will continue Coreg 6.25 mill grams p.o. twice daily Continue Lipitor 80 mg p.o. daily GI: OG tube to low intermittent wall suction. Initiate enteral feeds if not able to extubate within 24-hour FEN/RENAL: Acute kidney injury, resolved ID: Monitor for signs symptoms of infection. She has no fever, no infiltrate on CT. Blood cultures from 09/04 were negative. Sputum culture sent. HEME: Squamous cell carcinoma right lung New diagnosis. Medical oncology consultation ENDO: Monitor bedside glucose every 6 hours while on steroids administer low-dose insulin sliding scale as indicated PROPH: Heparin 5000 units subcu every 12 hours for DVT prophylaxis. Famotidine for stress ulcer prophylaxis ACCESS: Peripheral IV is providing adequate access at this time FULL CODE Patient was critically ill requiring emergent intubation without which she would have . Risk for further deterioration and . Critical care time 50 minutes exclusive of separately billable procedures
[2018-09-08] MEDS ORDERED: Dextrose 50% in Water 50 ML Vial IV.PUSH PRN (01:11)
[2018-09-08 01:17] LABS: ABG Base Excess -4.2 mmol/L (-2-2); ABG PCO2 38 mmHg (38-42); ABG PO2 355 mmHg (61-120)
--- NOTE | 2018-09-08 01:44 | CT ---
EXAM DATE: 09/08/2018 1:38 AM EST AGE/SEX: 77 years / Female INDICATIONS: Shortness of breath. CLINICAL DATA: This is the patient's initial encounter. Patient reports that signs and symptoms have been present for 1 day and indicates a pain score of Nonresponsive. MEDICAL/SURGICAL HISTORY: Diabetes. Cerebrovascular disease. Hypertension. Hysterectomy. RADIATION DOSE: 9.00 CTDI (mGy) COMPARISON: [facility] [place], CT BIOPSY LUNG RIGHT, 09/06/2018. . TECHNIQUE: Volumetric scanning was performed using a multi-row detector CT scanner during bolus infu vy of 75 ml Omnipaque 350 (iohexol) nonionic water-soluble contrast as a single exam dose. The al a was post processed with a variety of visualization algorithms including full volume maximum intensi ty projection and sliding thin slab reformation. Using automated exposure control and adjustment of the mA and/or kV according to patient size, radiation dose was kept as low as reasonably achievable t o obtain optimal diagnostic quality images. DICOM format image data is available electronically for review and comparison. FINDINGS: No evidence of pulmonary embolism Moderate right pleural effusion and small left pleural effusion with adjacent compressive atelectasis . Lateral right midlung subpleural nodular density measuring 17-18 mm. Small nodular densities in the l eft lung base. Prominent atherosclerotic changes including within the coronaries. Endotracheal tube and nasogastric tube in good position. CONCLUSION: This study is negative for pulmonary embolism. Electronically signed by: Zaid Park MD Board Certified Radiologist 09/08/2018 1:43 AM EST
[2018-09-08] MEDS: MethylPREDNISolone Sod Succinate Inj 125 MG/2 ML Vial IV.PUSH SCH ×4 (02:03→20:23)
[2018-09-08 02:05] LABS: Troponin I 0.02 ng/mL (0.02-0.05)
[2018-09-08] MEDS: Heparin - SQ 10,000 UNITS/ML Vial SQ SCH ×2 (06:15→18:36)
[2018-09-08] MEDS: Insulin NovoLOG Aspart Correctional Sugar Inj SQ SCH ×4 (06:17→23:38)
[2018-09-08] MEDS: Chlorhexidine 0.12% Oral Kit 15 ML UDC OROPHARYNG SCH ×2 (08:24→20:21)
--- NOTE | 2018-09-08 08:59 | P.PNCC ---
Subjective Subjective Remarks/Hospital Course: Mrs. Swanson is a 77-year-old white female admitted on 09/04with a medical history significant for osteoarthritis, hyperlipidemia, CAD, CVA, type 2 diabetes is wheelchair-bound and originally was admitted for nausea and vomiting with acute kidney injury, dehydration, lactic acidosis, and bandemia. She had a CT of the abdomen with incidental findings of right lung mass and pleural effusion. CT of the chest showed a right lower lobe 1.8 x 1.4 x 1.6 cm pleural-based soft tissue mass concerning for primary bronchogenic carcinoma. CT -guided lung biopsy was performed on 09/06. On 09/07 she was in stable condition with improving ELVA on 2 L of oxygen morning. [facility] was called at 2156 on 09/07 due to respiratory distress and oxygen desaturation. She had decreased breath sounds bilaterally and accessory muscle use. In addition she was tachycardic and had mildly decreased blood pressures ( 97/56) at that time. ABG showed respiratory acidosis. CXR showed some patchy right middle to lower lobe airspace disease and a stable right pleural effusion without evidence of pneumothorax. She breathing agonal he and emergently transferred to ICU and intubated. Interval History: 09/08: Intubated and sedated on propofol. Her BP has been labile and is very responsive to the propofol. She is not currently following commands. She does open eyes on central pain and seems to localize pain. Objective Vital Signs / I&O: Vital Signs 09/07/18 08:56 09/07/18 08:58 09/07/18 12:00 Temperature 97.8 F Pulse Rate 86 73 Respiratory Rate 25 H 19 Blood Pressure 154/72 H Pulse Oximetry 98 95 09/07/18 19:34 09/07/18 20:00 09/07/18 21:17 Temperature 98.3 F Pulse Rate 81 85 89 Respiratory Rate 19 18 Blood Pressure 165/90 H 198/97 H 187/87 H Pulse Oximetry 09/07/18 21:20 09/07/18 21:51 09/07/18 23:09 Temperature Pulse Rate 89 104 H Respiratory Rate 24 12 Blood Pressure 174/86 H Pulse Oximetry 100 09/07/18 23:34 09/07/18 23:45 09/07/18 23:50 Temperature 98.5 F Pulse Rate 92 H 100 H 95 H Respiratory Rate 12 12 12 Blood Pressure 207/111 H 232/131 H Pulse Oximetry 100 100 09/07/18 23:55 09/08/18 00:00 09/08/18 00:12 Temperature 98.5 F 98.5 F Pulse Rate 93 H 89 89 Respiratory Rate 12 12 12 Blood Pressure 215/117 H 201/102 H 213/112 H Pulse Oximetry 100 100 100 09/08/18 00:15 09/08/18 00:30 09/08/18 00:41 Temperature Pulse Rate 87 84 93 H Respiratory Rate 12 20 32 H Blood Pressure 207/97 H 208/113 H 216/99 H Pulse Oximetry 100 100 100 09/08/18 00:45 09/08/18 00:46 09/08/18 01:00 Temperature Pulse Rate 75 75 77 Respiratory Rate 12 12 11 L Blood Pressure 90/58 L 96/53 L 182/85 H Pulse Oximetry 100 100 100 09/08/18 01:17 09/08/18 01:22 09/08/18 01:33 Temperature Pulse Rate 77 75 Respiratory Rate 13 15 Blood Pressure 153/70 H 159/70 H Pulse Oximetry 100 100 98 09/08/18 01:47 09/08/18 02:00 09/08/18 02:02 Temperature Pulse Rate 84 71 69 Respiratory Rate 17 12 12 Blood Pressure 149/63 H 102/52 L 127/59 L Pulse Oximetry 100 100 100 09/08/18 02:32 09/08/18 02:41 09/08/18 02:44 Temperature Pulse Rate 68 66 68 Respiratory Rate 12 12 12 Blood Pressure 66/37 L 59/36 L 94/54 L Pulse Oximetry 100 100 100 09/08/18 02:47 09/08/18 03:02 09/08/18 03:17 Temperature Pulse Rate 68 79 73 Respiratory Rate 12 19 12 Blood Pressure 91/53 L 164/69 H 149/67 H Pulse Oximetry 100 96 100 09/08/18 03:31 09/08/18 03:32 09/08/18 03:34 Temperature Pulse Rate 68 67 Respiratory Rate 12 12 12 Blood Pressure 134/56 L Pulse Oximetry 100 100 09/08/18 03:47 09/08/18 03:49 09/08/18 04:00 Temperature Pulse Rate 66 66 66 Respiratory Rate 12 12 12 Blood Pressure 77/46 L 75/45 L 71/42 L Pulse Oximetry 100 100 100 02/15/19 04:02 09/08/18 04:04 09/08/18 04:06 Temperature Pulse Rate 66 64 64 Respiratory Rate 12 12 12 Blood Pressure 75/44 L 73/44 L 76/47 L Pulse Oximetry 100 100 100 09/08/18 04:10 09/08/18 04:17 09/08/18 04:32 Temperature Pulse Rate 64 63 75 Respiratory Rate 12 12 12 Blood Pressure 79/49 L 104/54 L 163/76 H Pulse Oximetry 100 100 100 09/08/18 04:47 09/08/18 07:00 09/08/18 07:22 Temperature Pulse Rate 73 61 Respiratory Rate 12 12 12 Blood Pressure 168/77 H Pulse Oximetry 100 100 Intake & Output 09/07/18 09/08/18 09/08/18 18:59 06:59 18:59 Intake Total 1000 / 1000 100 / 100 Output Total 500 / 500 Balance 1000 / 1000 -400 / -400 Weight 60.9 kg Intake: IV 1000 / 1000 100 / 100 NS Inj 1,000 ML @ 75 mls/hr IV. 1000 / 1000 100 / 100 CONT .[id number] MARIA Rx#:[id number] Output: Urine Amount (Catheter) 500 / 500 Female External 500 / 500 Other: # Urine Diapers 3 Date of Last Bowel Movement 09/07/18 09/07/18 Result Diagrams: 09/07/18 23:15 09/07/18 23:15 Objective Remarks: General: Intubated, mechanically ventilated, on sedation Eyes: PERRL, anicteric scleral ENT: Atraumatic, ET tube in place Neck: Trachea midline Respiratory: Mechanically ventilated, breath sounds clear b/l Cardiovascular: Regular rate and rhythm without murmur, 1+ pedal pulses, no peripheral edema Abdomen: Bowel sounds present. Soft, non-tender. No masses noted. Skin: no rashes or lesions noted Neurologic: On sedation: Localizes central pain, eyes open to pain, does not follow commands. Assessment and Plan - Problem List (1) Acute hypercapnic respiratory failure Code(s): J96.02 - Acute respiratory failure with hypercapnia Status: Acute (2) Pulmonary nodule, right Code(s): R91.1 - Solitary pulmonary nodule Status: Acute (3) Pleural effusion Code(s): J90 - Pleural effusion, not elsewhere classified Status: Acute (4) ELVA (acute kidney injury) Code(s): N17.9 - Acute kidney failure, unspecified Status: Resolved (5) Nausea and vomiting Code(s): R11.2 - Nausea with vomiting, unspecified Status: Resolved (6) Right lower lobe lung mass Code(s): R91.8 - Other nonspecific abnormal finding of lung field Status: Acute - Assessment and Plan Plan: Problem list: Lung cancer Respiratory failure Assessment and Plan: Neuro/Psych: -Sedated on propofol, unable to fully assess neuro status -She attempt to pull her ET tube when weaning propanol CV: History of hypertension and hyperlipidemia Carvedilol 6.25mg BID Lipitor 80mg HS Labetalol PRN SBP >165 Has had labile blood pressures that are responsive to sedation Resp: Her respiratory decline may have been secondary to a reactive airway / bronchospasm after her lung biopsy, COPD related exacerbation, worsening effusion, or new infection. Incidental finding of a right lung mass s/p biopsy. Immunostaining consistent with squamous cell carcinoma She had acute onset of respiratory distress requiring intubation. CT-PA w/o evidence of pulmonary embolism Chest x-ray showed progressive patchy infiltrates in the right lung and worsening pleural effusion -Intubated on PCV-VG, PEEP of 8, FIO2 of 40%, will attempt to decrease both today -Solu-Medrol 60mg q6h -Scheduled nebs -Will consider IV Lasix if unable to wean vent settings GI: Original presentation was for nausea, vomiting, and ELVA. Nausea and vomiting had resolved prior to her deterioration in ICU admission. -Diet: NPO RENAL ELVA present on admission has since resolved. -Fluids: hold fluids due to the concern for fluid overload Endocrine: q6h glucose monitoring and insulin sliding scale Heme/Oncology: Mild anemia, stable Pancytopenia on presentation, will continue to follow -Oncology was consulted due to new diagnosis of squamous cell carcinoma of the lung ID: Afebrile without leukocytosis -No antibiotics currently Access 4 peripheral IVs Prophylaxis GI: Famotidine every 12 hours VTE: Heparin SQ q12
[2018-09-08] MEDS: Senna/Docusate Sodium 8.6/50 MG Tablet PO SCH ×2 (09:23→20:22)
[2018-09-08] MEDS: Carvedilol 6.25 MG Tablet PO SCH ×2 (09:24→20:22)
--- NOTE | 2018-09-08 11:37 | XR ---
EXAM DATE: 09/08/2018 11:27 AM EST AGE/SEX: 77 years / Female INDICATIONS: Pulmonary disease. CLINICAL DATA: This is the patient's initial encounter. Patient reports that signs and symptoms have been present for 4 - 6 days and indicates a pain score of Nonresponsive. MEDICAL/SURGICAL HISTORY: Cerebrovascular disease. . intravascular stent COMPARISON: [facility], CHEST 1V SINGLE AP, 09/07/2018. . FINDINGS: There is an endotracheal tube in place which appears to be in good position. No evidence of pneumotho rax. There is an NG tube in the stomach. The lung hernandez are hyperaerated. There continues to be some pulmonary venous congestion. The interstitial edema appears to be mildly improved on today's examina tion. The heart size is stable. No significant pleural effusions. CONCLUSION: Improving interstitial edema compared to the prior exam. Otherwise, stable examination. Electronically signed by: Ken Casiano MD Board Certified Radiologist 09/08/2018 11:36 AM EST
--- NOTE | 2018-09-08 13:18 | P.PNPL ---
Subjective Interval history: Patient was transferred to ICU last night for acute hypercapnic resp failure requiring intubation. Afebrile. Path results showed squamous cell ca. Intubated and sedated. CTA chest today negative for PE. Physical Exam Vital signs: Vital Signs 09/07/18 19:34 09/07/18 20:00 09/07/18 21:17 Temperature 98.3 F Pulse Rate 81 85 89 Respiratory Rate 19 18 Blood Pressure 165/90 H 198/97 H 187/87 H Pulse Oximetry 09/07/18 21:20 09/07/18 21:51 09/07/18 23:09 Temperature Pulse Rate 89 104 H Respiratory Rate 24 12 Blood Pressure 174/86 H Pulse Oximetry 100 09/07/18 23:34 09/07/18 23:45 09/07/18 23:50 Temperature 98.5 F Pulse Rate 92 H 100 H 95 H Respiratory Rate 12 12 12 Blood Pressure 207/111 H 232/131 H Pulse Oximetry 100 100 09/07/18 23:55 09/08/18 00:00 09/08/18 00:12 Temperature 98.5 F 98.5 F Pulse Rate 93 H 89 89 Respiratory Rate 12 12 12 Blood Pressure 215/117 H 201/102 H 213/112 H Pulse Oximetry 100 100 100 09/08/18 00:15 09/08/18 00:30 09/08/18 00:41 Temperature Pulse Rate 87 84 93 H Respiratory Rate 12 20 32 H Blood Pressure 207/97 H 208/113 H 216/99 H Pulse Oximetry 100 100 100 09/08/18 00:45 09/08/18 00:46 09/08/18 01:00 Temperature Pulse Rate 75 75 77 Respiratory Rate 12 12 11 L Blood Pressure 90/58 L 96/53 L 182/85 H Pulse Oximetry 100 100 100 09/08/18 01:17 09/08/18 01:22 09/08/18 01:33 Temperature Pulse Rate 77 75 Respiratory Rate 13 15 Blood Pressure 153/70 H 159/70 H Pulse Oximetry 100 100 98 09/08/18 01:47 09/08/18 02:00 09/08/18 02:02 Temperature Pulse Rate 84 71 69 Respiratory Rate 17 12 12 Blood Pressure 149/63 H 102/52 L 127/59 L Pulse Oximetry 100 100 100 09/08/18 02:32 09/08/18 02:41 09/08/18 02:44 Temperature Pulse Rate 68 66 68 Respiratory Rate 12 12 12 Blood Pressure 66/37 L 59/36 L 94/54 L Pulse Oximetry 100 100 100 09/08/18 02:47 09/08/18 03:02 09/08/18 03:17 Temperature Pulse Rate 68 79 73 Respiratory Rate 12 19 12 Blood Pressure 91/53 L 164/69 H 149/67 H Pulse Oximetry 100 96 100 09/08/18 03:31 09/08/18 03:32 09/08/18 03:34 Temperature Pulse Rate 68 67 Respiratory Rate 12 12 12 Blood Pressure 134/56 L Pulse Oximetry 100 100 09/08/18 03:47 09/08/18 03:49 09/08/18 04:00 Temperature Pulse Rate 66 66 66 Respiratory Rate 12 12 12 Blood Pressure 77/46 L 75/45 L 71/42 L Pulse Oximetry 100 100 100 09/08/18 04:02 09/08/18 04:04 09/08/18 04:06 Temperature Pulse Rate 66 64 64 Respiratory Rate 12 12 12 Blood Pressure 75/44 L 73/44 L 76/47 L Pulse Oximetry 100 100 100 09/08/18 04:10 09/08/18 04:17 09/08/18 04:32 Temperature Pulse Rate 64 63 75 Respiratory Rate 12 12 12 Blood Pressure 79/49 L 104/54 L 163/76 H Pulse Oximetry 100 100 100 09/08/18 04:47 09/08/18 05:00 09/08/18 05:02 Temperature Pulse Rate 73 72 69 Respiratory Rate 12 12 12 Blood Pressure 168/77 H 162/72 H Pulse Oximetry 100 100 100 09/08/18 05:17 09/08/18 05:32 09/08/18 05:47 Temperature Pulse Rate 65 64 62 Respiratory Rate 12 12 12 Blood Pressure 108/55 L 105/57 L 126/60 Pulse Oximetry 100 100 100 09/08/18 06:00 09/08/18 06:02 09/08/18 06:17 Temperature Pulse Rate 73 75 73 Respiratory Rate 13 12 13 Blood Pressure 177/81 H 168/71 H Pulse Oximetry 100 100 100 09/08/18 06:32 09/08/18 06:47 09/08/18 07:00 Temperature Pulse Rate 67 64 62 Respiratory Rate 12 12 12 Blood Pressure 161/70 H 108/53 L Pulse Oximetry 100 100 100 09/08/18 07:02 09/08/18 07:17 09/08/18 07:22 Temperature Pulse Rate 63 61 Respiratory Rate 12 12 12 Blood Pressure 102/52 L 109/56 L Pulse Oximetry 100 100 100 09/08/18 07:32 09/08/18 07:36 09/08/18 07:40 Temperature Pulse Rate 71 67 71 Respiratory Rate 17 20 18 Blood Pressure 197/86 H 186/84 H 174/75 H Pulse Oximetry 90 L 94 L 100 09/08/18 07:47 09/08/18 07:48 09/08/18 08:00 Temperature Pulse Rate 70 71 66 Respiratory Rate 15 15 12 Blood Pressure 195/83 H 177/79 H Pulse Oximetry 98 99 100 09/08/18 08:02 09/08/18 08:17 09/08/18 08:29 Temperature Pulse Rate 66 64 63 Respiratory Rate 12 12 12 Blood Pressure 173/79 H 137/65 123/56 L Pulse Oximetry 100 100 100 09/08/18 08:32 09/08/18 08:47 09/08/18 09:00 Temperature Pulse Rate 63 61 60 Respiratory Rate 12 12 12 Blood Pressure 109/57 L 134/61 Pulse Oximetry 100 100 100 09/08/18 09:02 09/08/18 12:04 Temperature Pulse Rate 59 L 64 Respiratory Rate 12 14 Blood Pressure 136/65 Pulse Oximetry 100 100 Intake & Output 09/07/18 09/08/18 09/08/18 18:59 06:59 18:59 Intake Total 1000 / 1000 100 / 100 100 / 100 Output Total 500 / 500 Balance 1000 / 1000 -400 / -400 100 / 100 Weight 60.9 kg Intake: IV 1000 / 1000 100 / 100 100 / 100 Diprivan 1000 mg/100 ml Inj 1, 100 / 100 000 mg In 100 ml @ 5 MCG/KG/MIN 1.734 mls/hr IV.CONT TITRATE PRN Rx#:[id number] NS Inj 1,000 ML @ 75 mls/hr IV. 1000 / 1000 100 / 100 CONT .[id number] MARIA Rx#:[id number] Output: Urine Amount (Catheter) 500 / 500 Female External 500 / 500 Other: # Urine Diapers 3 Date of Last Bowel Movement 09/07/18 09/07/18 - Constitutional no acute distress - Routine HEENT Exam Head: Present: normocephalic, atraumatic Eye: Present: EOMI, PERRL, normal accommodation, conjunctivae pink ENT: Present: mucous membranes moist - Routine Neck Exam Present: supple, full ROM, trachea midline - Routine Respiratory Exam Present: patient mechanically ventilated, CTA bilaterally - Routine Cardiovascular Exam Present: RRR, S1, S2 - Routine Abdominal Exam Present: soft, normoactive bowel sounds - Routine Extremities Exam Present: pulses intact - Routine Skin Exam Present: intact - Routine Neurological Exam Present: altered mental status - Urinary Catheter Management Straight Cath placed during this visit: yes Reason for continuing: Not indwelling catheter Insertion date: 09/04/18 Insertion time: 14:24 Female External Cath placed during this visit: yes Reason for continuing: Not indwelling catheter Insertion date: 09/08/18 Insertion time: 00:00 Assessment and Plan - Assessment (1) Acute hypercapnic respiratory failure Code(s): J96.02 - Acute respiratory failure with hypercapnia Status: Acute (2) Pleural effusion Code(s): J90 - Pleural effusion, not elsewhere classified Status: Acute (3) ELVA (acute kidney injury) Code(s): N17.9 - Acute kidney failure, unspecified Status: Resolved (4) Nausea and vomiting Code(s): R11.2 - Nausea with vomiting, unspecified Status: Resolved (5) Right lower lobe lung mass Code(s): R91.8 - Other nonspecific abnormal finding of lung field Status: Acute - Plan 1. VDRF 2. 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 3. Small right pleural effusion. 4. Remote history of tobacco use. 5. Mild acute kidney injury, improving. 6. Pancytopenia. 7. Hypertension. 8. CVA. 9. Hyperlipidemia. 10. Diabetes mellitus. Plan Continue with vent support and maintain sats >92%. Bronchodilators, ICU vent bundle. Solumederol 60mg IV Q6 CTA chest negative for PE. CXR improving interstitial edema s/p CT guided lung biopsy 09/06..>Squamous cell ca Oncology consulted Blood cultures from 09/04: Negative Monitor CBC Continue treatment plan
[2018-09-08] MEDS: Famotidine PF Inj 20 MG/2 ML Vial IV.PUSH SCH (20:22)
--- NOTE | 2018-09-08 20:31 | MB ---
cc: Marlo Lindsay MD DATE: 09/08/2018 REASON FOR CONSULTATION: Consult requested by electric golf cart repairer for evaluation of recently diagnosed non-small cell lung cancer. HISTORY OF PRESENT ILLNESS: Samreen is a 77-year-old female. She has a history of CVA, hypercholesterolemia, diabetes mellitus, hypertension, who came to the emergency room complaining of intractable nausea and vomiting. She had a CAT scan of the abdomen and pelvis which showed a 1.8 cm right lower lobe lung mass with moderate pleural effusion. The patient underwent CT-guided core needle biopsy of the lung mass. The pathology report came back for squamous cell carcinoma. I have been asked to see the patient for further evaluation. The patient went into respiratory failure last night, and she is now intubated and on the ventilator. According to the patient's nurse, the sedation has been on hold, but the patient is not following commands. Both the patient's son and daughter are present at the bedside. REVIEW OF SYSTEMS: Not possible as the patient is on the ventilator. PAST MEDICAL HISTORY: CVA, diabetes mellitus, hypertension, hypercholesterolemia, arthritis. She is wheelchair-bound. PAST SURGICAL HISTORY: Hysterectomy, stent placement. ALLERGIES: NONE. MEDICATIONS: 1. Insulin. 2. Coreg. FAMILY HISTORY: None for malignancy. SOCIAL HISTORY: The patient used to smoke cigarettes, quit 20 years ago. PHYSICAL EXAMINATION: GENERAL: A well-developed, elderly, frail female in no apparent distress. VITAL SIGNS: Temperature 98.5, heart rate is 64, respiratory rate is 12, blood pressure 136/65. HEENT: ET tube noted. Pupils are equal and reactive. The patient opens eyes, but does not follow commands. NECK: No lymphadenopathy noted. LUNGS: Decreased breath sounds on the right side. HEART: Regular rate and rhythm. ABDOMEN: Soft. Not distended. EXTREMITIES: No pedal edema. NEUROLOGIC: The patient is on the ventilator, off sedation, but does not follow commands. SKIN: No significant lesions noted. ASSESSMENT: 1. A 1.8 cm right lower lobe lung mass. Biopsy shows squamous cell carcinoma, which is a non-small cell lung cancer. 2. Moderate pleural effusion. It is unknown whether this is malignant or benign. PLAN: I have reviewed her available records, and I have discussed with the patient's son and daughter. We discussed the pathology report, which indicates squamous cell carcinoma. This is the subtype of non-small cell lung cancer. At this point, it is not clear whether the moderate pleural effusion is malignant or benign. My recommendation is for diagnostic thoracentesis once the patient is stable. I will discuss with the men's designer, Dr. Armas. If the pleural effusion does not show malignancy, then she will be a candidate for stereotactic radiosurgery. However, if the effusion is positive for malignancy, then we will discuss the possibility of palliative chemotherapy. According to the patient's daughter, her performance status is poor. She uses the wheelchair and walker to move around. In that case, she would not be a candidate for any palliative chemotherapy based on poor performance status. Therefore, I think it is important to do the diagnostic thoracentesis as the treatment will change. She could be a candidate just for stereotactic radiosurgery to the right lower lobe lung mass if she does not have malignant pleural effusion. Thank you for asking my opinion. MD DANETTE Cano/ben , 05:56 PM , 06:09 PM
[2018-09-09] MEDS: MethylPREDNISolone Sod Succinate Inj 125 MG/2 ML Vial IV.PUSH SCH ×4 (02:59→20:32)
[2018-09-09] MEDS: Oral Hygiene Kit OROPHARYNG SCH ×3 (03:02→17:00)
[2018-09-09 05:49] LABS: Baso % (Auto) 0.2 % (0.0-2.0); Hematocrit 31.8 % (35.0-46.0); Hemoglobin 10.8 gm/dL (11.6-15.3); Lymph # (Auto) 0.2 th/mm3 (1.0-4.8); Mean Corpuscular HGB Conc 34.1 % (32.0-36.0); Mean Corpuscular Hemoglobin 31.1 pg (27.0-34.0); Mean Corpuscular Volume 91.3 fL (80.0-100.0); Mean Platelet Volume 11.9 fL (7.0-11.0); Mono # (Auto) 0.2 th/mm3 (0.0-0.9); Mono % (Auto) 4.1 % (0.0-8.0); Neut # (Auto) 3.7 th/mm3 (1.8-7.7); Neut % (Auto) 89.7 % (16.0-70.0); Platelet Count 95 th/mm3 (150-450); Red Blood Count 3.48 mil/mm3 (4.00-5.30); Red Cell Distribution Width 15.1 % (11.6-17.2); White Blood Count 4.1 th/mm3 (4.0-11.0)
[2018-09-09 06:12] LABS: Alanine Aminotransferase 14 U/L (10-53); Albumin 2.9 g/dL (3.4-5.0); Anion Gap 12 meq/L (5-15); Aspartate Aminotransferase 17 U/L (15-37); Blood Urea Nitrogen 20 mg/dL (7-18); Calcium 8.2 mg/dL (8.5-10.1); Carbon Dioxide 22.8 meq/L (21.0-32.0); Chloride 109 meq/L (98-107); Glomerular Filtration Rate 46 mL/min (>89); Glucose,Random 157 mg/dL (74-106); Potassium 3.7 meq/L (3.5-5.1); Sodium 144 meq/L (136-145)
[2018-09-09 06:14] LABS: Alkaline Phosphatase 78 U/L (45-117); Total Protein 6.7 g/dL (6.4-8.2)
[2018-09-09] MEDS: Insulin NovoLOG Aspart Correctional Sugar Inj SQ SCH ×3 (06:37→18:02)
[2018-09-09] MEDS: Heparin - SQ 10,000 UNITS/ML Vial SQ SCH ×2 (06:37→17:55)
[2018-09-09 07:14] LABS: Acanthocytes Occ; Burr Cells 1+
[2018-09-09 07:15] LABS: Ovalocytes 1+
--- NOTE | 2018-09-09 07:54 | P.PNCC ---
Subjective Subjective Remarks/Hospital Course: Mrs. Swanson is a 77-year-old white female admitted on 09/04with a medical history significant for osteoarthritis, hyperlipidemia, CAD, CVA, type 2 diabetes is wheelchair-bound and originally was admitted for nausea and vomiting with acute kidney injury, dehydration, lactic acidosis, and bandemia. She had a CT of the abdomen with incidental findings of right lung mass and pleural effusion. CT of the chest showed a right lower lobe 1.8 x 1.4 x 1.6 cm pleural-based soft tissue mass concerning for primary bronchogenic carcinoma. CT -guided lung biopsy was performed on 09/06. On 09/07 she was in stable condition with improving ELVA on 2 L [facility] oxygen morning[facility] due to respiratory distress and oxygen desaturation. She had decreased breath sounds bilaterally and accessory muscle use. In addition she was tachycardic and had mildly decreased blood pressures ( 97/56) at that time. ABG showed respiratory acidosis. CXR showed some patchy right middle to lower lobe airspace disease and a stable right pleural effusion without evidence of pneumothorax. She breathing agonal he and emergently transferred to ICU and intubated. Interval History: 09/08: Intubated and sedated on propofol. Her BP has been labile and is very responsive to the propofol. She is not currently following commands. She does open eyes on central pain and seems to localize pain. 09/09: clinically improving. hypoxia improving. will start SBTs today. no fevers. bedside ultrasound overnight performed and found minimal pleural effusion, too small for thoracentesis. Objective Vital Signs / I&O: Vital Signs 09/08/18 08:00 09/08/18 08:02 09/08/18 08:17 Temperature Pulse Rate 66 66 64 Respiratory Rate 12 12 12 Blood Pressure 173/79 H 137/65 Pulse Oximetry 100 100 100 09/08/18 08:29 09/08/18 08:32 09/08/18 08:47 Temperature Pulse Rate 63 63 61 Respiratory Rate 12 12 12 Blood Pressure 123/56 L 109/57 L 134/61 Pulse Oximetry 100 100 100 09/08/18 09:00 09/08/18 09:02 09/08/18 12:04 Temperature Pulse Rate 60 59 L 64 Respiratory Rate 12 12 14 Blood Pressure 136/65 Pulse Oximetry 100 100 100 09/08/18 14:17 02/15/19 14:21 09/08/18 14:32 Temperature Pulse Rate 65 64 62 Respiratory Rate 12 12 12 Blood Pressure 195/91 H 191/91 H 193/84 H Pulse Oximetry 100 100 100 09/08/18 14:47 09/08/18 14:48 09/08/18 14:50 Temperature Pulse Rate 63 63 63 Respiratory Rate 12 12 12 Blood Pressure 138/71 132/66 138/66 Pulse Oximetry 100 100 100 09/08/18 15:00 09/08/18 15:03 09/08/18 15:11 Temperature Pulse Rate 64 65 61 Respiratory Rate 12 12 12 Blood Pressure 98/53 L 157/76 H Pulse Oximetry 100 100 100 09/08/18 15:18 09/08/18 15:32 09/08/18 15:33 Temperature Pulse Rate 60 63 Respiratory Rate 12 12 12 Blood Pressure 124/56 L 88/51 L Pulse Oximetry 100 100 100 09/08/18 15:35 09/08/18 15:36 09/08/18 15:42 Temperature Pulse Rate 63 62 62 Respiratory Rate 12 12 12 Blood Pressure 83/53 L 127/70 Pulse Oximetry 100 100 09/08/18 15:48 09/08/18 16:00 09/08/18 16:03 Temperature Pulse Rate 60 64 65 Respiratory Rate 12 18 17 Blood Pressure 136/74 153/74 H Pulse Oximetry 100 100 100 09/08/18 16:18 09/08/18 16:33 09/08/18 16:48 Temperature Pulse Rate 64 64 65 Respiratory Rate 14 13 13 Blood Pressure 163/79 H 172/88 H 181/79 H Pulse Oximetry 100 100 100 09/08/18 16:55 09/08/18 17:00 09/08/18 17:03 Temperature Pulse Rate 65 68 66 Respiratory Rate 12 12 14 Blood Pressure 173/78 H 175/81 H Pulse Oximetry 100 100 100 09/08/18 17:18 09/08/18 17:33 09/08/18 17:48 Temperature Pulse Rate 65 65 64 Respiratory Rate 14 12 12 Blood Pressure 172/80 H 170/73 H 147/65 H Pulse Oximetry 100 100 100 09/08/18 18:00 09/08/18 18:03 09/08/18 19:00 Temperature Pulse Rate 63 63 65 Respiratory Rate 12 12 12 Blood Pressure 132/60 Pulse Oximetry 100 100 100 09/08/18 20:00 09/08/18 20:11 09/08/18 20:14 Temperature 36.6 C Pulse Rate 63 64 Respiratory Rate 12 12 12 Blood Pressure 118/55 L Pulse Oximetry 100 100 100 09/08/18 20:16 09/08/18 20:38 09/08/18 20:47 Temperature Pulse Rate 71 72 70 Respiratory Rate 14 23 20 Blood Pressure 182/83 H 169/71 H Pulse Oximetry 100 09/08/18 21:00 09/08/18 21:15 09/08/18 21:26 Temperature Pulse Rate 68 68 67 Respiratory Rate 22 21 22 Blood Pressure 85/53 L 75/47 L Pulse Oximetry 100 100 100 09/08/18 21:35 09/08/18 21:38 09/08/18 21:45 Temperature Pulse Rate 67 63 72 Respiratory Rate 21 12 21 Blood Pressure 76/50 L 86/63 L 175/81 H Pulse Oximetry 100 100 100 09/08/18 22:00 09/08/18 22:08 09/08/18 22:38 Temperature Pulse Rate 72 69 64 Respiratory Rate 12 12 12 Blood Pressure 156/68 H 84/46 L Pulse Oximetry 100 100 09/08/18 22:51 09/08/18 23:00 09/08/18 23:08 Temperature Pulse Rate 62 61 60 Respiratory Rate 12 12 12 Blood Pressure 84/48 L 97/51 L Pulse Oximetry 100 100 100 09/08/18 23:26 09/08/18 23:29 09/08/18 23:38 Temperature Pulse Rate 74 71 Respiratory Rate 15 13 12 Blood Pressure 179/82 H Pulse Oximetry 100 98 09/09/18 00:00 09/09/18 00:08 09/09/18 00:38 Temperature 36.6 C Pulse Rate 66 65 74 Respiratory Rate 12 12 15 Blood Pressure 162/71 H 167/72 H Pulse Oximetry 98 99 97 09/09/18 01:00 09/09/18 01:08 09/09/18 01:38 Temperature Pulse Rate 68 64 59 L Respiratory Rate 12 12 12 Blood Pressure 170/77 H 109/53 L Pulse Oximetry 97 97 98 09/09/18 02:00 09/09/18 02:08 09/09/18 02:38 Temperature Pulse Rate 57 L 57 L 56 L Respiratory Rate 12 12 12 Blood Pressure 122/58 L 146/67 H Pulse Oximetry 98 98 98 09/09/18 03:00 09/09/18 03:08 09/09/18 03:19 Temperature Pulse Rate 75 70 63 Respiratory Rate 12 12 12 Blood Pressure 196/90 H 190/85 H Pulse Oximetry 95 96 97 09/09/18 03:24 09/09/18 03:38 09/09/18 04:00 Temperature 36.6 C Pulse Rate 63 68 61 Respiratory Rate 12 13 12 Blood Pressure 192/87 H 178/84 H Pulse Oximetry 97 95 97 09/09/18 04:08 09/09/18 04:11 09/09/18 04:13 Temperature Pulse Rate 60 60 Respiratory Rate 12 12 12 Blood Pressure 162/74 H Pulse Oximetry 97 97 Intake & Output 09/08/18 09/09/18 09/09/18 18:59 06:59 18:59 Intake Total 100 / 100 100 / 100 Output Total 300 / 300 Balance 100 / 100 -200 / -200 Weight 61 kg Intake: IV 100 / 100 100 / 100 Diprivan 1000 mg/100 ml Inj 1, 100 / 100 100 / 100 000 mg In 100 ml @ 5 MCG/KG/MIN 1.734 mls/hr IV.CONT TITRATE PRN Rx#:[id number] Output: Urine Amount (Catheter) 300 / 300 Female External 300 / 300 Other: Date of Last Bowel Movement 09/07/18 09/07/18 Result Diagrams: 09/09/18 05:20 09/09/18 05:20 Objective Remarks: General: Intubated, mechanically ventilated, on sedation Eyes: PERRL, anicteric scleral ENT: Atraumatic, ET tube in place Neck: Trachea midline Respiratory: Mechanically ventilated, breath sounds clear b/l, PRVC. fio2 40%. peep 5. Cardiovascular: Regular rate and rhythm, 1+ pedal pulses, no peripheral edema Abdomen: Soft, non-tender. No masses noted. Skin: no rashes or lesions noted Neurologic: On sedation: Localizes central pain, eyes open to pain, does not follow commands. Assessment and Plan - Problem List (1) Acute hypercapnic respiratory failure Code(s): J96.02 - Acute respiratory failure with hypercapnia Status: Acute (2) Pleural effusion Code(s): J90 - Pleural effusion, not elsewhere classified Status: Acute (3) ELVA (acute kidney injury) Code(s): N17.9 - Acute kidney failure, unspecified Status: Resolved (4) Nausea and vomiting Code(s): R11.2 - Nausea with vomiting, unspecified Status: Resolved (5) Right lower lobe lung mass Code(s): R91.8 - Other nonspecific abnormal finding of lung field Status: Acute - Assessment and Plan Plan: Problem list: Lung cancer Acute hypoxic and hypercarbic respiratory failure Acute metabolic encephalopathy Acute severe COPD exacerbation Assessment and Plan: Neuro/Psych: -Sedated on propofol RASS goal -2. CV: History of hypertension and hyperlipidemia Carvedilol 6.25mg BID Lipitor 80mg HS Labetalol PRN SBP >165 Has had labile blood pressures that are responsive to sedation Resp: Her respiratory decline may have been secondary to a reactive airway / bronchospasm after her lung biopsy, COPD related exacerbation, worsening effusion, or new infection. Incidental finding of a right lung mass s/p biopsy. Immunostaining consistent with squamous cell carcinoma She had acute onset of respiratory distress requiring intubation. CT-PA w/o evidence of pulmonary embolism -Solu-Medrol 60mg q6h -Scheduled nebs -lasix 40mg iv x 1 today. - start SBTs. GI: Original presentation was for nausea, vomiting, and ELVA. Nausea and vomiting had resolved prior to her deterioration in ICU admission. -Diet: NPO. start enteral nutrition today if no improvements in respiratory status. RENAL ELVA present on admission has since resolved. -Fluids: hold fluids due to the concern for fluid overload Endocrine: q6h glucose monitoring and insulin sliding scale Heme/Oncology: Mild anemia, stable Pancytopenia on presentation, will continue to follow -Oncology was consulted due to new diagnosis of squamous cell carcinoma of the lung ID: Afebrile without leukocytosis -No antibiotics currently Access 4 peripheral IVs Prophylaxis GI: Famotidine every 12 hours VTE: Heparin SQ q12 OVERALL IMPRESSION: Critically ill with respiratory failure, copd exacerbation. slow improvements. Critical care time: 31 minutes, exclusive of separately billable procedures.
[2018-09-09] MEDS: Senna/Docusate Sodium 8.6/50 MG Tablet PO SCH ×2 (08:14→20:33)
[2018-09-09] MEDS: Carvedilol 6.25 MG Tablet PO SCH ×2 (08:15→20:33)
[2018-09-09] MEDS: Famotidine PF Inj 20 MG/2 ML Vial IV.PUSH SCH ×2 (08:15→20:33)
[2018-09-09] MEDS: Chlorhexidine 0.12% Oral Kit 15 ML UDC OROPHARYNG SCH ×2 (08:16→20:32)
[2018-09-09] MEDS: Labetalol HCl Inj 20 MG/4 ML Vial IV.PUSH PRN ×2 (08:18→14:41)
--- NOTE | 2018-09-09 10:22 | P.PNPL ---
Subjective Interval history: Patient remains intubated on CPAP. Off sedation. Afebrile. Physical Exam Vital signs: Vital Signs 09/08/18 12:04 09/08/18 14:17 09/08/18 14:21 Temperature Pulse Rate 64 65 64 Respiratory Rate 14 12 12 Blood Pressure 195/91 H 191/91 H Pulse Oximetry 100 100 100 09/08/18 14:32 09/08/18 14:47 09/08/18 14:48 Temperature Pulse Rate 62 63 63 Respiratory Rate 12 12 12 Blood Pressure 193/84 H 138/71 132/66 Pulse Oximetry 100 100 100 09/08/18 14:50 09/08/18 15:00 09/08/18 15:03 Temperature Pulse Rate 63 64 65 Respiratory Rate 12 12 12 Blood Pressure 138/66 98/53 L Pulse Oximetry 100 100 100 09/08/18 15:11 09/08/18 15:18 09/08/18 15:32 Temperature Pulse Rate 61 60 Respiratory Rate 12 12 12 Blood Pressure 157/76 H 124/56 L Pulse Oximetry 100 100 100 09/08/18 15:33 09/08/18 15:35 09/08/18 15:36 Temperature Pulse Rate 63 63 62 Respiratory Rate 12 12 12 Blood Pressure 88/51 L 83/53 L Pulse Oximetry 100 100 09/08/18 15:42 09/08/18 15:48 09/08/18 16:00 Temperature Pulse Rate 62 60 64 Respiratory Rate 12 12 18 Blood Pressure 127/70 136/74 Pulse Oximetry 100 100 100 09/08/18 16:03 09/08/18 16:18 09/08/18 16:33 Temperature Pulse Rate 65 64 64 Respiratory Rate 17 14 13 Blood Pressure 153/74 H 163/79 H 172/88 H Pulse Oximetry 100 100 100 09/08/18 16:48 09/08/18 16:55 09/08/18 17:00 Temperature Pulse Rate 65 65 68 Respiratory Rate 13 12 12 Blood Pressure 181/79 H 173/78 H Pulse Oximetry 100 100 100 09/08/18 17:03 09/08/18 17:18 09/08/18 17:33 Temperature Pulse Rate 66 65 65 Respiratory Rate 14 14 12 Blood Pressure 175/81 H 172/80 H 170/73 H Pulse Oximetry 100 100 100 09/08/18 17:48 09/08/18 18:00 09/08/18 18:03 Temperature Pulse Rate 64 63 63 Respiratory Rate 12 12 12 Blood Pressure 147/65 H 132/60 Pulse Oximetry 100 100 100 09/08/18 19:00 09/08/18 20:00 09/08/18 20:11 Temperature 97.9 F Pulse Rate 65 63 64 Respiratory Rate 12 12 12 Blood Pressure 118/55 L Pulse Oximetry 100 100 100 09/08/18 20:14 09/08/18 20:16 09/08/18 20:38 Temperature Pulse Rate 71 72 Respiratory Rate 12 14 23 Blood Pressure 182/83 H Pulse Oximetry 100 09/08/18 20:47 09/08/18 21:00 09/08/18 21:15 Temperature Pulse Rate 70 68 68 Respiratory Rate 20 22 21 Blood Pressure 169/71 H 85/53 L Pulse Oximetry 100 100 100 09/08/18 21:26 09/08/18 21:35 09/08/18 21:38 Temperature Pulse Rate 67 67 63 Respiratory Rate 22 21 12 Blood Pressure 75/47 L 76/50 L 86/63 L Pulse Oximetry 100 100 100 09/08/18 21:45 09/08/18 22:00 09/08/18 22:08 Temperature Pulse Rate 72 72 69 Respiratory Rate 21 12 12 Blood Pressure 175/81 H 156/68 H Pulse Oximetry 100 100 09/08/18 22:38 09/08/18 22:51 09/08/18 23:00 Temperature Pulse Rate 64 62 61 Respiratory Rate 12 12 12 Blood Pressure 84/46 L 84/48 L Pulse Oximetry 100 100 100 09/08/18 23:08 09/08/18 23:26 09/08/18 23:29 Temperature Pulse Rate 60 74 Respiratory Rate 12 15 13 Blood Pressure 97/51 L Pulse Oximetry 100 100 09/08/18 23:38 09/09/18 00:00 09/09/18 00:08 Temperature 97.9 F Pulse Rate 71 66 65 Respiratory Rate 12 12 12 Blood Pressure 179/82 H 162/71 H Pulse Oximetry 98 98 99 09/09/18 00:38 09/09/18 01:00 09/09/18 01:08 Temperature Pulse Rate 74 68 64 Respiratory Rate 15 12 12 Blood Pressure 167/72 H 170/77 H Pulse Oximetry 97 97 97 09/09/18 01:38 09/09/18 02:00 09/09/18 02:08 Temperature Pulse Rate 59 L 57 L 57 L Respiratory Rate 12 12 12 Blood Pressure 109/53 L 122/58 L Pulse Oximetry 98 98 98 09/09/18 02:38 09/09/18 03:00 09/09/18 03:08 Temperature Pulse Rate 56 L 75 70 Respiratory Rate 12 12 12 Blood Pressure 146/67 H 196/90 H Pulse Oximetry 98 95 96 09/09/18 03:19 09/09/18 03:24 09/09/18 03:38 Temperature Pulse Rate 63 63 68 Respiratory Rate 12 12 13 Blood Pressure 190/85 H 192/87 H 178/84 H Pulse Oximetry 97 97 95 09/09/18 04:00 09/09/18 04:08 09/09/18 04:11 Temperature 97.9 F Pulse Rate 61 60 Respiratory Rate 12 12 12 Blood Pressure 162/74 H Pulse Oximetry 97 97 97 09/09/18 04:13 09/09/18 07:54 09/09/18 07:58 Temperature Pulse Rate 60 70 Respiratory Rate 12 11 L 14 Blood Pressure Pulse Oximetry 100 Intake & Output 09/08/18 09/09/18 09/09/18 18:59 06:59 18:59 Intake Total 100 / 100 100 / 100 Output Total 300 / 300 Balance 100 / 100 -200 / -200 Weight 61 kg Intake: IV 100 / 100 100 / 100 Diprivan 1000 mg/100 ml Inj 1, 100 / 100 100 / 100 000 mg In 100 ml @ 5 MCG/KG/MIN 1.734 mls/hr IV.CONT TITRATE PRN Rx#:[id number] Output: Urine Amount (Catheter) 300 / 300 Female External 300 / 300 Other: Date of Last Bowel Movement 09/07/18 09/07/18 - Constitutional no acute distress - Routine HEENT Exam Head: Present: normocephalic, atraumatic Eye: Present: EOMI, PERRL, normal accommodation, conjunctivae pink ENT: Present: mucous membranes moist - Routine Neck Exam Present: supple, full ROM, trachea midline - Routine Respiratory Exam Present: patient mechanically ventilated, CTA bilaterally - Routine Cardiovascular Exam Present: RRR, S1, S2 - Routine Abdominal Exam Present: soft, normoactive bowel sounds - Routine Extremities Exam Present: pulses intact - Routine Skin Exam Present: intact, dry - Routine Neurological Exam Present: alert - Urinary Catheter Management Straight Cath placed during this visit: yes Reason for continuing: Not indwelling catheter Insertion date: 09/04/18 Insertion time: 14:24 Female External Cath placed during this visit: yes Reason for continuing: Not indwelling catheter Insertion date: 09/08/18 Insertion time: 00:00 Assessment and Plan - Assessment (1) Acute hypercapnic respiratory failure Code(s): J96.02 - Acute respiratory failure with hypercapnia Status: Acute (2) Pleural effusion Code(s): J90 - Pleural effusion, not elsewhere classified Status: Acute (3) ELVA (acute kidney injury) Code(s): N17.9 - Acute kidney failure, unspecified Status: Resolved (4) Nausea and vomiting Code(s): R11.2 - Nausea with vomiting, unspecified Status: Resolved (5) Right lower lobe lung mass Code(s): R91.8 - Other nonspecific abnormal finding of lung field Status: Acute - Plan 1. VDRF 2. 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 3. Small right pleural effusion. 4. Remote history of tobacco use. 5. Mild acute kidney injury, improving. 6. Pancytopenia. 7. Hypertension. 8. CVA. 9. Hyperlipidemia. 10. Diabetes mellitus. Plan Continue with vent support and maintain sats >92%. Bronchodilators, ICU vent bundle. Solumederol 60mg IV Q6 SBT as emile, check ABG possible extubation today Repeat CXR in 1-2 days if there is any increase in pleural effusion consider right sided diagnostic thoracentesis CTA chest negative for PE. CXR 09/08 improving interstitial edema s/p CT guided lung biopsy 09/06..>Squamous cell ca Oncology is following Blood cultures from 09/04: Negative Monitor CBC Continue treatment plan
--- NOTE | 2018-09-09 15:21 | P.PNONC ---
Subjective Interval history: Afebrile. Patient was extubated this a.m. Review of senior information developer progress note, pleural effusion was too small for thoracentesis. Patient awake and alert, currently on the bedpan. Denies any shortness of breath. Objective Vital Signs/Intake & Output: Vital Signs 09/08/18 15:18 09/08/18 15:32 09/08/18 15:33 Temperature Pulse Rate 60 63 Respiratory Rate 12 12 12 Blood Pressure 124/56 L 88/51 L Pulse Oximetry 100 100 100 09/08/18 15:35 09/08/18 15:36 09/08/18 15:42 Temperature Pulse Rate 63 62 62 Respiratory Rate 12 12 12 Blood Pressure 83/53 L 127/70 Pulse Oximetry 100 100 09/08/18 15:48 09/08/18 16:00 09/08/18 16:03 Temperature Pulse Rate 60 64 65 Respiratory Rate 12 18 17 Blood Pressure 136/74 153/74 H Pulse Oximetry 100 100 100 09/08/18 16:18 09/08/18 16:33 09/08/18 16:48 Temperature Pulse Rate 64 64 65 Respiratory Rate 14 13 13 Blood Pressure 163/79 H 172/88 H 181/79 H Pulse Oximetry 100 100 100 09/08/18 16:55 09/08/18 17:00 09/08/18 17:03 Temperature Pulse Rate 65 68 66 Respiratory Rate 12 12 14 Blood Pressure 173/78 H 175/81 H Pulse Oximetry 100 100 100 09/08/18 17:18 09/08/18 17:33 09/08/18 17:48 Temperature Pulse Rate 65 65 64 Respiratory Rate 14 12 12 Blood Pressure 172/80 H 170/73 H 147/65 H Pulse Oximetry 100 100 100 09/08/18 18:00 09/08/18 18:03 09/08/18 19:00 Temperature Pulse Rate 63 63 65 Respiratory Rate 12 12 12 Blood Pressure 132/60 Pulse Oximetry 100 100 100 09/08/18 20:00 09/08/18 20:11 09/08/18 20:14 Temperature 97.9 F Pulse Rate 63 64 Respiratory Rate 12 12 12 Blood Pressure 118/55 L Pulse Oximetry 100 100 100 09/08/18 20:16 09/08/18 20:38 09/08/18 20:47 Temperature Pulse Rate 71 72 70 Respiratory Rate 14 23 20 Blood Pressure 182/83 H 169/71 H Pulse Oximetry 100 09/08/18 21:00 09/08/18 21:15 09/08/18 21:26 Temperature Pulse Rate 68 68 67 Respiratory Rate 22 21 22 Blood Pressure 85/53 L 75/47 L Pulse Oximetry 100 100 100 09/08/18 21:35 09/08/18 21:38 09/08/18 21:45 Temperature Pulse Rate 67 63 72 Respiratory Rate 21 12 21 Blood Pressure 76/50 L 86/63 L 175/81 H Pulse Oximetry 100 100 100 09/08/18 22:00 09/08/18 22:08 09/08/18 22:38 Temperature Pulse Rate 72 69 64 Respiratory Rate 12 12 12 Blood Pressure 156/68 H 84/46 L Pulse Oximetry 100 100 09/08/18 22:51 09/08/18 23:00 09/08/18 23:08 Temperature Pulse Rate 62 61 60 Respiratory Rate 12 12 12 Blood Pressure 84/48 L 97/51 L Pulse Oximetry 100 100 100 09/08/18 23:26 09/08/18 23:29 09/08/18 23:38 Temperature Pulse Rate 74 71 Respiratory Rate 15 13 12 Blood Pressure 179/82 H Pulse Oximetry 100 98 09/09/18 00:00 09/09/18 00:08 09/09/18 00:38 Temperature 97.9 F Pulse Rate 66 65 74 Respiratory Rate 12 12 15 Blood Pressure 162/71 H 167/72 H Pulse Oximetry 98 99 97 09/09/18 01:00 09/09/18 01:08 09/09/18 01:38 Temperature Pulse Rate 68 64 59 L Respiratory Rate 12 12 12 Blood Pressure 170/77 H 109/53 L Pulse Oximetry 97 97 98 09/09/18 02:00 09/09/18 02:08 09/09/18 02:38 Temperature Pulse Rate 57 L 57 L 56 L Respiratory Rate 12 12 12 Blood Pressure 122/58 L 146/67 H Pulse Oximetry 98 98 98 09/09/18 03:00 09/09/18 03:08 09/09/18 03:19 Temperature Pulse Rate 75 70 63 Respiratory Rate 12 12 12 Blood Pressure 196/90 H 190/85 H Pulse Oximetry 95 96 97 09/09/18 03:24 09/09/18 03:38 09/09/18 04:00 Temperature 97.9 F Pulse Rate 63 68 61 Respiratory Rate 12 13 12 Blood Pressure 192/87 H 178/84 H Pulse Oximetry 97 95 97 09/09/18 04:08 09/09/18 04:11 09/09/18 04:13 Temperature Pulse Rate 60 60 Respiratory Rate 12 12 12 Blood Pressure 162/74 H Pulse Oximetry 97 97 09/09/18 07:00 09/09/18 07:08 09/09/18 07:38 Temperature Pulse Rate 59 L Respiratory Rate 12 Blood Pressure 144/68 H 206/86 H Pulse Oximetry 100 09/09/18 07:45 09/09/18 07:54 09/09/18 07:58 Temperature Pulse Rate 70 Respiratory Rate 11 L 14 Blood Pressure 185/73 H Pulse Oximetry 100 09/09/18 08:00 09/09/18 08:08 09/09/18 08:38 Temperature 98.0 F Pulse Rate 67 75 76 Respiratory Rate 11 L 18 16 Blood Pressure 206/84 H 188/80 H Pulse Oximetry 100 99 100 09/09/18 09:00 09/09/18 09:08 09/09/18 10:00 Temperature Pulse Rate 77 80 72 Respiratory Rate 16 16 10 L Blood Pressure 181/77 H Pulse Oximetry 100 99 98 09/09/18 10:08 09/09/18 10:32 09/09/18 11:00 Temperature Pulse Rate 72 72 80 Respiratory Rate 9 L 12 13 Blood Pressure 187/81 H 174/77 H 187/87 H Pulse Oximetry 98 97 98 09/09/18 11:54 09/09/18 12:00 09/09/18 12:04 Temperature 98.7 F Pulse Rate 72 75 82 Respiratory Rate 18 14 15 Blood Pressure 201/87 H 192/91 H Pulse Oximetry 98 98 98 Intake & Output 09/08/18 09/09/18 09/09/18 18:59 06:59 18:59 Intake Total 100 / 100 100 / 100 50 / 50 Output Total 300 / 300 Balance 100 / 100 -200 / -200 50 / 50 Weight 61 kg Intake: IV 100 / 100 100 / 100 50 / 50 Diprivan 1000 mg/100 ml Inj 1, 100 / 100 100 / 100 50 / 50 000 mg In 100 ml @ 5 MCG/KG/MIN 1.734 mls/hr IV.CONT TITRATE PRN Rx#:[id number] Output: Urine Amount (Catheter) 300 / 300 Female External 300 / 300 Other: Date of Last Bowel Movement 09/07/18 09/07/18 09/09/18 Result Diagrams: 09/09/18 05:20 09/09/18 05:20 Laboratory Results: Laboratory Results - last 24 hr 09/08/18 09/08/18 09/09/18 18:44 23:34 05:20 WBC 4.1 RBC 3.48 L Hgb 10.8 L Hct 31.8 L MCV 91.3 MCH 31.1 MCHC 34.1 RDW 15.1 Plt Count 95 L MPV 11.9 H Prelim Diff (Auto) Slide review pending Neut % (Auto) 89.7 H Lymph % (Auto) 6.0 L Hay[place] % (Auto) 4.1 Eos % (Auto) 0.0 Baso % (Auto) 0.2 Neut # (Auto) 3.7 Lymph # (Auto) 0.2 L [place] # (Auto) 0.2 Eos # (Auto) 0.0 Baso # (Auto) 0.0 WBC Differential . Diff Scan Auto diff confirmed Differential Comment . Platelet Estimate Low L Platelet Morphology Enlarged H Ovalocytes 1+ H Carly Cells 1+ H Acanthocytes (Spur) Occ H Sodium Potassium Chloride Carbon Dioxide Anion Gap BUN Creatinine Estimated GFR POC Glucose 87 113 H Random Glucose Calcium Total Bilirubin AST ALT Alkaline Phosphatase Total Protein Albumin 09/09/18 09/09/18 05:20 12:45 WBC RBC Hgb Hct MCV MCH MCHC RDW Plt Count MPV Prelim Diff (Auto) Neut % (Auto) Lymph % (Auto) Haywood % (Auto) Eos % (Auto) Baso % (Auto) Neut # (Auto) Lymph # (Auto) [place]wood # (Auto) Eos # (Auto) Baso # (Auto) WBC Differential Diff Scan Differential Comment Platelet Estimate Platelet Morphology Ovalocytes [place] Cells Acanthocytes (Spur) Sodium 144 Potassium 3.7 Chloride 109 H D Carbon Dioxide 22.8 Anion Gap 12 BUN 20 H Creatinine 1.34 H Estimated GFR 46 L POC Glucose 118 H Random Glucose 157 H Calcium 8.2 L D Total Bilirubin 0.5 AST 17 ALT 14 Alkaline Phosphatase 78 Total Protein 6.7 D Albumin 2.9 L Culture Results: Microbiology 09/08/18 00:19 Gram Stain - Final Sputum - Endotracheal Sputum Culture - Preliminary Moderate growth normal respiratory [place] at 24 hours 09/04/18 15:56 Aerobic Blood Culture - Final Blood - Peripheral No growth in 5 days Anaerobic Blood Culture - Final No growth in 5 days 09/04/18 14:50 Aerobic Blood Culture - Final Blood - Peripheral No growth in 5 days Anaerobic Blood Culture - Final No growth in 5 days Medications: Active Medications Generic Name Dose Route Start Last Admin Trade Name Freq PRN Reason Stop Dose Admin Albuterol 1 ampul 09/08/18 00:00 09/09/18 11:53 Duoneb Neb ([facility]) NEB 1 ampul Q4HR NEB [facility] Administration Atorvastatin Calcium 80 mg 09/04/18 18:00 09/08/18 18:36 Lipitor PO 80 mg DAILY@1800 [facility] Administration Carvedilol 6.25 mg 09/04/18 21:00 09/09/18 08:15 Coreg PO 6.25 mg BID MARIA Administration Chlorhexidine Gluconate 15 ml 09/08/18 08:00 09/09/18 08:16 Peridex 0.12% Oral Kit OROPHARYNG 15 ml BID@0800,2000 [facility] Administration Famotidine 20 mg 09/08/18 21:00 09/09/18 08:15 Pepcid Pf Inj IV.PUSH 20 mg Q12HR MARIA Administration Heparin Sodium (Porcine) 5,000 units 09/04/18 18:00 09/09/18 06:37 Heparin Inj SQ 5,000 units Q12H [facility] Administration Propofol 1,000 mg in 100 mls @ 1.734 mls/hr 09/08/18 00:21 09/09/18 12:56 Diprivan 1000 Mg/100 Ml Inj IV.CONT Infused TITRATE PRN Titration Per Protocol Protocol 5 MCG/KG/MIN Insulin Aspart 0 unit 09/08/18 06:00 09/09/18 12:48 Novolog Insulin Correctional Sugar Inj SQ Not Given Q6HR [facility] Protocol Labetalol HCl 10 mg 09/08/18 00:29 09/09/18 14:41 Trandate Inj IV.PUSH 10 mg Q6H PRN Administration SBP >165 Methylprednisolone Sodium Succinate 60 mg 09/08/18 02:00 09/09/18 14:41 Solumedrol Inj IV.PUSH 60 mg Q6H MARIA Administration Miscellaneous Medication 1 each 09/08/18 00:00 09/09/18 12:49 OROPHARYNG Not Given 0000,0400,1200,1600 MARIA Senna/Docusate Sodium 1 tab 09/04/18 21:00 09/09/18 08:14 Kamila-Colace PO 1 tab BID MARIA Administration Sodium Chloride 2 ml 09/04/18 21:00 09/09/18 08:15 Ns Flush IV.FLUSH 2 ml BID MARIA Administration Objective Remarks: GENERAL: Frail elderly female patient, in no acute distress. SKIN: Warm and dry. HEAD: Normocephalic. EYES: No scleral icterus. No injection or drainage. NECK: Supple, trachea midline. CARDIOVASCULAR: Regular rate and rhythm without murmurs. RESPIRATORY: Posterior breath sounds clear, equal bilaterally. No accessory muscle use. GASTROINTESTINAL: Abdomen soft, non-tender, nondistended. EXTREMITIES: No cyanosis, or edema. Sequentials in place bilaterally. MUSCULOSKELETAL: Adequate muscle tone. NEUROLOGICAL: No obvious focal deficit. Awake, alert, and oriented x3. PSYCHIATRIC: Appropriate mood and affect; insight and judgment normal. Assessment/Plan - Plan Ms. Swanson is a pleasant 77-year-old elderly female patient with a newly diagnosed squamous cell carcinoma. Plan: 1. Squamous cell carcinoma, hopefully we may obtain a diagnostic thoracentesis as this will change her treatment plan. Review of her chart, the senior information developer noted that at that time there was too small of fluid to obtain. Patient is now extubated, possibly consider IR consult on Tuesday for diagnostic thoracentesis. 2. Respiratory failure, patient was extubated this morning. Management per senior information developer. 3. Continue supportive care. - Attending Statement The exam, history, and the medical decision-making described in the above note were completed with the assistance of the mid-level provider. I reviewed and agree with the findings presented. I attest that I had a [id number] encounter with the patient on the same day, and personally performed and documented my assessment and findings in the medical record. Patient is extubated She is awake and alert Discussed the diagnosis of non-small cell lung cancer. Will consult IR for diagnostic right thoracentesis We will consult radiation oncologist for stereotactic radiosurgery for right lower lobe lung cancer We will follow with you
[2018-09-09] MEDS ORDERED: Labetalol HCl Inj 20 MG/4 ML Vial IV.PUSH PRN (17:17)
[2018-09-10] MEDS: Oral Hygiene Kit OROPHARYNG SCH ×2 (00:20→05:53)
[2018-09-10] MEDS: Insulin NovoLOG Aspart Correctional Sugar Inj SQ SCH ×5 (00:20→23:54)
[2018-09-10] MEDS: MethylPREDNISolone Sod Succinate Inj 125 MG/2 ML Vial IV.PUSH SCH ×4 (01:53→20:44)
--- NOTE | 2018-09-10 04:29 | XR ---
EXAM DATE: 09/10/2018 3:57 AM EST AGE/SEX: 77 years / Female INDICATIONS: Pulmonary disease. CLINICAL DATA: This is the patient's subsequent encounter. Patient reports that signs and symptoms h ave been present for 1 week and indicates a pain score of Nonresponsive. MEDICAL/SURGICAL HISTORY: . Cerebrovascular disease. . Intravascular stent. COMPARISON: C, CHEST 1V SINGLE AP, 09/08/2018. . FINDINGS: Interval extubation and removal of nasogastric tube. Persistent hazy pleural-parenchymal opacity in t he right lung base. Some additional clearance of similar process from the left base. Diffuse intersti tial prominence grossly unchanged. Accounting for rotation, cardiac contours are stable. CONCLUSION: Interval extubation. Continued improvement in aeration, particularly in the left lung base Electronically signed by: Zaid Park MD Board Certified Radiologist 09/10/2018 4:28 AM EST
[2018-09-10 05:39] LABS: Hematocrit 30.8 % (35.0-46.0); Hemoglobin 10.6 gm/dL (11.6-15.3); Mean Corpuscular HGB Conc 34.4 % (32.0-36.0); Mean Corpuscular Volume 90.1 fL (80.0-100.0); Mean Platelet Volume 11.7 fL (7.0-11.0); Platelet Count 117 th/mm3 (150-450); Red Blood Count 3.41 mil/mm3 (4.00-5.30); Red Cell Distribution Width 14.8 % (11.6-17.2); White Blood Count 8.7 th/mm3 (4.0-11.0)
[2018-09-10 06:11] LABS: Calcium 7.8 mg/dL (8.5-10.1); Carbon Dioxide 24.2 meq/L (21.0-32.0); Magnesium 1.7 mg/dL (1.5-2.5)
[2018-09-10 06:12] LABS: Phosphorus 3.7 mg/dL (2.5-4.9)
[2018-09-10] MEDS: Heparin - SQ 10,000 UNITS/ML Vial SQ SCH ×2 (06:39→17:43)
[2018-09-10] MEDS ORDERED: Magnesium Oxide 400 MG Tablet PO PRN (08:16)
[2018-09-10] MEDS ORDERED: Potassium Chloride Liq 20 MEQ/15 ML UDC PO PRN (08:16)
[2018-09-10] MEDS ORDERED: Sodium Phosphate Inj 30 MMOL in Sodium Chlor 0.9% Inj 250 ML IV.SIG PRN (08:16)
[2018-09-10] MEDS ORDERED: Potassium Phosphate Inj 30 MMOL in Sodium Chlor 0.9% Inj 250 ML IV.SIG PRN (08:16)
[2018-09-10] MEDS ORDERED: Potassium Phosphate 500 MG Soluble Tablet PO PRN ×2 (08:16)
[2018-09-10] MEDS ORDERED: Magnesium Sulfate Inj 2 GM in Sodium Chlor 0.9% Inj 96 ML IV.SIG PRN (08:16)
[2018-09-10] MEDS ORDERED: Magnesium Sulfate Inj 4 GM in Sodium Chlor 0.9% Inj 92 ML IV.SIG PRN (08:16)
[2018-09-10] MEDS ORDERED: Potassium Chlor 20 mEq Premix 20 MEQ/100 ML PIGGYBACK IV.SIG PRN ×2 (08:16)
[2018-09-10] MEDS ORDERED: Potassium Chlor 40 mEq Premix 40 MEQ/100 ML PIGGYBACK IV.SIG PRN ×2 (08:16)
[2018-09-10] MEDS: Famotidine PF Inj 20 MG/2 ML Vial IV.PUSH SCH ×2 (08:50→20:44)
[2018-09-10] MEDS: Potassium Chloride Liq 20 MEQ/15 ML UDC PO PRN ×2 (08:50→11:10)
[2018-09-10] MEDS: Carvedilol 6.25 MG Tablet PO SCH ×2 (08:50→20:43)
[2018-09-10] MEDS: Senna/Docusate Sodium 8.6/50 MG Tablet PO SCH ×2 (08:51→20:51)
[2018-09-10] MEDS: Chlorhexidine 0.12% Oral Kit 15 ML UDC OROPHARYNG SCH (08:51)
--- NOTE | 2018-09-10 10:07 | P.PNCC ---
Subjective Subjective Remarks/Hospital Course: Mrs. Swanson is a 77-year-old white female admitted on 09/04with a medical history significant for osteoarthritis, hyperlipidemia, CAD, CVA, type 2 diabetes is wheelchair-bound and originally was admitted for nausea and vomiting with acute kidney injury, dehydration, lactic acidosis, and bandemia. She had a CT of the abdomen with incidental findings of right lung mass and pleural effusion. CT of the chest showed a right lower lobe 1.8 x 1.4 x 1.6 cm pleural-based soft tissue mass concerning for primary bronchogenic carcinoma. CT -guided lung biopsy was performed on 09/06. On 09/07 she was in stable condition with improving ELVA on 2 L of oxygen morning. [facility] was called at 2156 on 09/07 due to respiratory distress and oxygen desaturation. She had decreased breath sounds bilaterally and accessory muscle use. In addition she was tachycardic and had mildly decreased blood pressures ( 97/56) at that time. ABG showed respiratory acidosis. CXR showed some patchy right middle to lower lobe airspace disease and a stable right pleural effusion without evidence of pneumothorax. She breathing agonal he and emergently transferred to ICU and intubated. Interval History: 09/08: Intubated and sedated on propofol. Her BP has been labile and is very responsive to the propofol. She is not currently following commands. She does open eyes on central pain and seems to localize pain. 09/09: clinically improving. hypoxia improving. will start SBTs today. no fevers. bedside ultrasound overnight performed and found minimal pleural effusion, too small for thoracentesis. 09/10: extubated yesterday. clinically doing well. tolerating diet. denies complaints. Objective Vital Signs / I&O: Vital Signs 09/09/18 10:08 09/09/18 10:32 09/09/18 11:00 Temperature Pulse Rate 72 72 80 Respiratory Rate 9 L 12 13 Blood Pressure 187/81 H 174/77 H 187/87 H Pulse Oximetry 98 97 98 09/09/18 11:54 09/09/18 12:00 09/09/18 12:04 Temperature 37.1 C Pulse Rate 72 75 82 Respiratory Rate 18 14 15 Blood Pressure 201/87 H 192/91 H Pulse Oximetry 98 98 98 09/09/18 13:00 09/09/18 14:00 09/09/18 15:00 Temperature Pulse Rate 88 86 90 Respiratory Rate 13 20 16 Blood Pressure 183/81 H 190/88 H 178/88 H Pulse Oximetry 96 100 97 09/09/18 16:00 09/09/18 16:48 09/09/18 17:00 Temperature 37.1 C Pulse Rate 88 90 90 Respiratory Rate 22 18 26 H Blood Pressure 158/76 H 191/87 H Pulse Oximetry 100 09/09/18 17:11 09/09/18 18:00 09/09/18 18:27 Temperature Pulse Rate 90 91 H 92 H Respiratory Rate 29 H 25 H 24 Blood Pressure 174/82 H 180/83 H 187/80 H Pulse Oximetry 94 L 93 L 09/09/18 19:00 09/09/18 20:00 09/09/18 20:11 Temperature 36.7 C Pulse Rate 92 H 95 H 91 H Respiratory Rate 20 22 22 Blood Pressure 162/73 H 149/65 H Pulse Oximetry 98 99 95 09/09/18 21:00 09/09/18 22:00 09/09/18 22:01 Temperature Pulse Rate 90 86 85 Respiratory Rate 21 18 18 Blood Pressure 166/73 H 141/63 H Pulse Oximetry 96 99 99 09/09/18 23:00 09/09/18 23:29 09/10/18 00:00 Temperature 36.6 C Pulse Rate 85 85 81 Respiratory Rate 19 22 19 Blood Pressure 135/60 165/69 H Pulse Oximetry 99 98 09/10/18 01:00 09/10/18 02:00 09/10/18 02:01 Temperature Pulse Rate 84 77 77 Respiratory Rate 14 14 14 Blood Pressure 150/72 H 167/77 H Pulse Oximetry 100 98 98 09/10/18 03:00 09/10/18 03:32 09/10/18 04:00 Temperature 36.6 C Pulse Rate 77 75 83 Respiratory Rate 14 16 14 Blood Pressure 148/75 H 169/82 H Pulse Oximetry 99 99 09/10/18 05:00 09/10/18 06:00 09/10/18 07:00 Temperature Pulse Rate 83 89 76 Respiratory Rate 19 22 13 Blood Pressure 171/79 H 165/82 H 169/76 H Pulse Oximetry 97 100 99 09/10/18 08:00 09/10/18 08:31 09/10/18 08:32 Temperature 36.6 C Pulse Rate 76 79 Respiratory Rate 14 18 Blood Pressure 168/76 H Pulse Oximetry 98 96 09/10/18 09:00 Temperature Pulse Rate 88 Respiratory Rate 16 Blood Pressure 172/82 H Pulse Oximetry 98 Intake & Output 09/09/18 09/10/18 09/10/18 18:59 06:59 18:59 Intake Total 350 / 350 Output Total 250 / 250 375 / 375 Balance 100 / 100 -375 / -375 Weight 61.2 kg Intake: IV 50 / 50 Diprivan 1000 mg/100 ml Inj 1, 50 / 50 000 mg In 100 ml @ 5 MCG/KG/MIN 1.734 mls/hr IV.CONT TITRATE PRN Rx#:[id number] Oral 300 / 300 Output: Urine Amount (Catheter) 250 / 250 375 / 375 Female External 250 / 250 375 / 375 Other: Date of Last Bowel Movement 09/09/18 09/10/18 09/10/18 # Bowel Movements 3 # Incontinent Bowel Movements 2 Result Diagrams: 09/10/18 05:08 09/10/18 05:08 Objective Remarks: General: elderly female, lying in bed, awake, alert, no acute distress. Eyes: PERRL, anicteric scleral ENT: Atraumatic, normocephalic. pupils equal round and reactive. Neck: Trachea midline Respiratory: nc o2. equal chest rise. Cardiovascular: Regular rate and rhythm, 1+ pedal pulses, no peripheral edema Abdomen: Soft, non-tender. No masses noted. Skin: no rashes or lesions noted Neurologic: RASS 0. CAM-. follows commands. oriented x 3. no deficits. Assessment and Plan - Problem List (1) Acute hypercapnic respiratory failure Code(s): J96.02 - Acute respiratory failure with hypercapnia Status: Acute (2) Pleural effusion Code(s): J90 - Pleural effusion, not elsewhere classified Status: Acute (3) ELVA (acute kidney injury) Code(s): N17.9 - Acute kidney failure, unspecified Status: Resolved (4) Nausea and vomiting Code(s): R11.2 - Nausea with vomiting, unspecified Status: Resolved (5) Right lower lobe lung mass Code(s): R91.8 - Other nonspecific abnormal finding of lung field Status: Acute - Assessment and Plan Plan: Problem list: Lung cancer Acute hypoxic and hypercarbic respiratory failure- resolving Acute metabolic encephalopathy-resolved Acute severe COPD exacerbation Assessment and Plan: Neuro/Psych: avoid long-acting sedatives. CV: History of hypertension and hyperlipidemia Carvedilol increase dto 12.5mg BID Lipitor 80mg HS Labetalol PRN SBP >165 Resp: CT-PA w/o evidence of pulmonary embolism -Solu-Medrol 60mg q6h -Scheduled nebs - wean o2 for goal spo2 > 90% - PT consult - OOB GI: Original presentation was for nausea, vomiting, and ELVA. Nausea and vomiting had resolved prior to her deterioration in ICU admission. -Diet: advance diet as tolerated. speech eval. RENAL ELVA present on admission has since resolved. -Fluids: hold fluids due to the concern for fluid overload Endocrine: q6h glucose monitoring and insulin sliding scale Heme/Oncology: Mild anemia, stable Pancytopenia on presentation, will continue to follow -Oncology was consulted due to new diagnosis of squamous cell carcinoma of the lung ID: Afebrile without leukocytosis -No antibiotics currently Access 4 peripheral IVs Prophylaxis GI: Famotidine every 12 hours VTE: Heparin SQ q12 stable to transfer out of ICU. consult hospitalist group to assume care.
--- NOTE | 2018-09-10 10:21 | P.PNPL ---
Subjective Interval history: Patient was extubated yesterday awake and alert. Looks comfortable, denies any SOB or CP. Physical Exam Vital signs: Vital Signs 09/09/18 10:32 09/09/18 11:00 09/09/18 11:54 Temperature Pulse Rate 72 80 72 Respiratory Rate 12 13 18 Blood Pressure 174/77 H 187/87 H Pulse Oximetry 97 98 98 09/09/18 12:00 09/09/18 12:04 09/09/18 13:00 Temperature 98.7 F Pulse Rate 75 82 88 Respiratory Rate 14 15 13 Blood Pressure 201/87 H 192/91 H 183/81 H Pulse Oximetry 98 98 96 09/09/18 14:00 09/09/18 15:00 09/09/18 16:00 Temperature 98.8 F Pulse Rate 86 90 88 Respiratory Rate 20 16 22 Blood Pressure 190/88 H 178/88 H 158/76 H Pulse Oximetry 100 97 09/09/18 16:48 09/09/18 17:00 09/09/18 17:11 Temperature Pulse Rate 90 90 90 Respiratory Rate 18 26 H 29 H Blood Pressure 191/87 H 174/82 H Pulse Oximetry 100 09/09/18 18:00 09/09/18 18:27 09/09/18 19:00 Temperature Pulse Rate 91 H 92 H 92 H Respiratory Rate 25 H 24 20 Blood Pressure 180/83 H 187/80 H 162/73 H Pulse Oximetry 94 L 93 L 98 09/09/18 20:00 09/09/18 20:11 09/09/18 21:00 Temperature 98.0 F Pulse Rate 95 H 91 H 90 Respiratory Rate 22 22 21 Blood Pressure 149/65 H 166/73 H Pulse Oximetry 99 95 96 09/09/18 22:00 09/09/18 22:01 09/09/18 23:00 Temperature Pulse Rate 86 85 85 Respiratory Rate 18 18 19 Blood Pressure 141/63 H 135/60 Pulse Oximetry 99 99 99 09/09/18 23:29 09/10/18 00:00 09/10/18 01:00 Temperature 97.8 F Pulse Rate 85 81 84 Respiratory Rate 22 19 14 Blood Pressure 165/69 H 150/72 H Pulse Oximetry 98 100 09/10/18 02:00 09/10/18 02:01 09/10/18 03:00 Temperature Pulse Rate 77 77 77 Respiratory Rate 14 14 14 Blood Pressure 167/77 H 148/75 H Pulse Oximetry 98 98 99 09/10/18 03:32 09/10/18 04:00 09/10/18 05:00 Temperature 97.9 F Pulse Rate 75 83 83 Respiratory Rate 16 14 19 Blood Pressure 169/82 H 171/79 H Pulse Oximetry 99 97 09/10/18 06:00 09/10/18 07:00 09/10/18 08:00 Temperature 97.8 F Pulse Rate 89 76 76 Respiratory Rate 22 13 14 Blood Pressure 165/82 H 169/76 H 168/76 H Pulse Oximetry 100 99 98 09/10/18 08:31 09/10/18 08:32 09/10/18 09:00 Temperature Pulse Rate 79 88 Respiratory Rate 18 16 Blood Pressure 172/82 H Pulse Oximetry 96 98 Intake & Output 09/09/18 09/10/18 09/10/18 18:59 06:59 18:59 Intake Total 350 / 350 Output Total 250 / 250 375 / 375 Balance 100 / 100 -375 / -375 Weight 61.2 kg Intake: IV 50 / 50 Diprivan 1000 mg/100 ml Inj 1, 50 / 50 000 mg In 100 ml @ 5 MCG/KG/MIN 1.734 mls/hr IV.CONT TITRATE PRN Rx#:[id number] Oral 300 / 300 Output: Urine Amount (Catheter) 250 / 250 375 / 375 Female External 250 / 250 375 / 375 Other: Date of Last Bowel Movement 09/09/18 09/10/18 09/10/18 # Bowel Movements 3 # Incontinent Bowel Movements 2 - Constitutional no acute distress - Routine HEENT Exam Head: Present: normocephalic, atraumatic Eye: Present: EOMI, PERRL, normal accommodation, conjunctivae pink ENT: Present: mucous membranes moist - Routine Neck Exam Present: supple, full ROM, trachea midline - Routine Respiratory Exam Present: CTA bilaterally - Routine Cardiovascular Exam Present: RRR, S1, S2 - Routine Abdominal Exam Present: soft, normoactive bowel sounds - Routine Extremities Exam Present: full ROM, pulses intact - Routine Skin Exam Present: intact, dry - Routine Neurological Exam Present: alert, oriented X3, CN II-XII intact - Urinary Catheter Management Straight Cath placed during this visit: yes Reason for continuing: Not indwelling catheter Insertion date: 09/04/18 Insertion time: 14:24 Female External Cath placed during this visit: yes Reason for continuing: Not indwelling catheter Insertion date: 09/08/18 Insertion time: 00:00 Assessment and Plan - Assessment (1) Acute hypercapnic respiratory failure Code(s): J96.02 - Acute respiratory failure with hypercapnia Status: Acute (2) Pleural effusion Code(s): J90 - Pleural effusion, not elsewhere classified Status: Acute (3) ELVA (acute kidney injury) Code(s): N17.9 - Acute kidney failure, unspecified Status: Resolved (4) Nausea and vomiting Code(s): R11.2 - Nausea with vomiting, unspecified Status: Resolved (5) Right lower lobe lung mass Code(s): R91.8 - Other nonspecific abnormal finding of lung field Status: Acute - Plan 1. Resp Insuff- Extubated 09/09 2. 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 3. Small right pleural effusion. 4. Remote history of tobacco use. 5. Mild acute kidney injury, improving. 6. Pancytopenia. 7. Hypertension. 8. CVA. 9. Hyperlipidemia. 10. Diabetes mellitus. Plan Continue with oxygen and maintain sats >92%. Bronchodilators, IS Solumederol 60mg IV Q6 Repeat CXR in am if there is any increase in pleural effusion consider right sided diagnostic thoracentesis CTA chest negative for PE. CXR 09/08 improving interstitial edema s/p CT guided lung biopsy 09/06..>Squamous cell ca Oncology is following Blood cultures from 09/04: Negative Monitor CBC Continue treatment plan
--- NOTE | 2018-09-10 10:31 | P.PNONC ---
Subjective Interval history: Patient sitting up in bed, with breakfast tray in front of her. Extubated yesterday, denies any sore throat, chest pain or shortness of breath. Denies any new symptoms or concerns. Objective Vital Signs/Intake & Output: Vital Signs 09/09/18 10:32 09/09/18 11:00 09/09/18 11:54 Temperature Pulse Rate 72 80 72 Respiratory Rate 12 13 18 Blood Pressure 174/77 H 187/87 H Pulse Oximetry 97 98 98 09/09/18 12:00 09/09/18 12:04 09/09/18 13:00 Temperature 98.7 F Pulse Rate 75 82 88 Respiratory Rate 14 15 13 Blood Pressure 201/87 H 192/91 H 183/81 H Pulse Oximetry 98 98 96 09/09/18 14:00 09/09/18 15:00 09/09/18 16:00 Temperature 98.8 F Pulse Rate 86 90 88 Respiratory Rate 20 16 22 Blood Pressure 190/88 H 178/88 H 158/76 H Pulse Oximetry 100 97 09/09/18 16:48 09/09/18 17:00 09/09/18 17:11 Temperature Pulse Rate 90 90 90 Respiratory Rate 18 26 H 29 H Blood Pressure 191/87 H 174/82 H Pulse Oximetry 100 09/09/18 18:00 09/09/18 18:27 09/09/18 19:00 Temperature Pulse Rate 91 H 92 H 92 H Respiratory Rate 25 H 24 20 Blood Pressure 180/83 H 187/80 H 162/73 H Pulse Oximetry 94 L 93 L 98 09/09/18 20:00 09/09/18 20:11 09/09/18 21:00 Temperature 98.0 F Pulse Rate 95 H 91 H 90 Respiratory Rate 22 22 21 Blood Pressure 149/65 H 166/73 H Pulse Oximetry 99 95 96 09/09/18 22:00 09/09/18 22:01 09/09/18 23:00 Temperature Pulse Rate 86 85 85 Respiratory Rate 18 18 19 Blood Pressure 141/63 H 135/60 Pulse Oximetry 99 99 99 09/09/18 23:29 09/10/18 00:00 09/10/18 01:00 Temperature 97.8 F Pulse Rate 85 81 84 Respiratory Rate 22 19 14 Blood Pressure 165/69 H 150/72 H Pulse Oximetry 98 100 09/10/18 02:00 09/10/18 02:01 09/10/18 03:00 Temperature Pulse Rate 77 77 77 Respiratory Rate 14 14 14 Blood Pressure 167/77 H 148/75 H Pulse Oximetry 98 98 99 09/10/18 03:32 09/10/18 04:00 09/10/18 05:00 Temperature 97.9 F Pulse Rate 75 83 83 Respiratory Rate 16 14 19 Blood Pressure 169/82 H 171/79 H Pulse Oximetry 99 97 09/10/18 06:00 09/10/18 07:00 09/10/18 08:00 Temperature 97.8 F Pulse Rate 89 76 76 Respiratory Rate 22 13 14 Blood Pressure 165/82 H 169/76 H 168/76 H Pulse Oximetry 100 99 98 09/10/18 08:31 09/10/18 08:32 09/10/18 09:00 Temperature Pulse Rate 79 88 Respiratory Rate 18 16 Blood Pressure 172/82 H Pulse Oximetry 96 98 Intake & Output 09/09/18 09/10/18 09/10/18 18:59 06:59 18:59 Intake Total 350 / 350 Output Total 250 / 250 375 / 375 Balance 100 / 100 -375 / -375 Weight 61.2 kg Intake: IV 50 / 50 Diprivan 1000 mg/100 ml Inj 1, 50 / 50 000 mg In 100 ml @ 5 MCG/KG/MIN 1.734 mls/hr IV.CONT TITRATE PRN Rx#:[id number] Oral 300 / 300 Output: Urine Amount (Catheter) 250 / 250 375 / 375 Female External 250 / 250 375 / 375 Other: Date of Last Bowel Movement 09/09/18 09/10/18 09/10/18 # Bowel Movements 3 # Incontinent Bowel Movements 2 Result Diagrams: 09/10/18 05:08 09/10/18 05:08 Laboratory Results: Laboratory Results - last 24 hr 09/09/18 09/09/18 09/09/18 12:45 18:01 23:33 WBC RBC Hgb Hct MCV MCH MCHC RDW Plt Count MPV Sodium Potassium Chloride Carbon Dioxide Anion Gap BUN Creatinine Estimated GFR POC Glucose 118 H 129 H 165 H Random Glucose Calcium Phosphorus Magnesium 09/10/18 09/10/18 05:08 05:08 WBC 8.7 D RBC 3.41 L Hgb 10.6 L Hct 30.8 L MCV 90.1 MCH 31.0 MCHC 34.4 RDW 14.8 Plt Count 117 L MPV 11.7 H Sodium 142 Potassium 3.0 L Chloride 109 H Carbon Dioxide 24.2 Anion Gap 9 BUN 29 H Creatinine 1.33 H Estimated GFR 47 L POC Glucose Random Glucose 125 H Calcium 7.8 L Phosphorus 3.7 Magnesium 1.7 Culture Results: Microbiology 09/08/18 00:19 Gram Stain - Final Sputum - Endotracheal Sputum Culture - Preliminary Moderate growth normal respiratory [place] at 24 hours 09/04/18 15:56 Aerobic Blood Culture - Final Blood - Peripheral No growth in 5 days Anaerobic Blood Culture - Final No growth in 5 days 09/04/18 14:50 Aerobic Blood Culture - Final Blood - Peripheral No growth in 5 days Anaerobic Blood Culture - Final No growth in 5 days Imaging Studies: Impressions Chest X-Ray 09/10/18 05:00 CONCLUSION: Interval extubation. Continued improvement in aeration, particularly in the left lung base Medications: Active Medications Generic Name Dose Route Start Last Admin Trade Name Freq PRN Reason Stop Dose Admin Albuterol 1 ampul 09/08/18 00:00 09/10/18 08:26 Duoneb Neb ([facility]) NEB 1 ampul Q4HR NEB [facility] Administration Atorvastatin Calcium 80 mg 09/04/18 18:00 09/09/18 17:55 Lipitor PO 80 mg DAILY@1800 [facility] Administration Carvedilol 12.5 mg 09/09/18 17:17 09/10/18 08:50 Coreg PO 12.5 mg BID [facility] Administration Famotidine 20 mg 09/08/18 21:00 09/10/18 08:50 Pepcid Pf Inj IV.PUSH 20 mg Q12HR [facility] Administration Heparin Sodium (Porcine) 5,000 units 09/04/18 18:00 09/10/18 06:39 Heparin Inj SQ 5,000 units Q12H [facility] Administration Insulin Aspart 0 unit 09/08/18 06:00 09/10/18 06:38 Novolog Insulin Correctional Sugar Inj SQ Not Given Q6HR [facility] Protocol Labetalol HCl 20 mg 09/09/18 17:17 09/09/18 18:31 Trandate Inj IV.PUSH 20 mg Q1H PRN Administration SBP >180 Methylprednisolone Sodium Succinate 60 mg 09/08/18 02:00 09/10/18 08:50 Solumedrol Inj IV.PUSH 60 mg Q6H [facility] Administration Potassium Chloride 40 meq 09/10/18 08:16 09/10/18 08:50 Kcl Liq PO 40 meq UNSCH PRN Administration POTASSIUM LESS THAN 3.5 Senna/Docusate Sodium 1 tab 09/04/18 21:00 09/10/18 08:51 Kamila-Colace PO Not Given BID [facility] Sodium Chloride 2 ml 09/04/18 21:00 09/10/18 08:51 Ns Flush IV.FLUSH 2 ml BID [facility] Administration Objective Remarks: GENERAL: Frail elderly female patient, in no acute distress. SKIN: Warm and dry. HEAD: Normocephalic. EYES: No scleral icterus. No injection or drainage. NECK: Supple, trachea midline. CARDIOVASCULAR: Regular rate and rhythm, grade 4/6 murmur noted. RESPIRATORY: Posterior breath sounds clear, equal bilaterally. No accessory muscle use. GASTROINTESTINAL: Abdomen soft, non-tender, nondistended. EXTREMITIES: No cyanosis, or edema. Sequentials in place bilaterally. MUSCULOSKELETAL: Adequate muscle tone. NEUROLOGICAL: No obvious focal deficit. Awake, alert, and oriented x3. PSYCHIATRIC: Appropriate mood and affect; insight and judgment normal Assessment/Plan - Plan Ms. Swanson is a pleasant 77-year-old elderly female patient with a newly diagnosed squamous cell carcinoma. Plan: 1. Squamous cell carcinoma, hopefully we may obtain a diagnostic thoracentesis as this will change her treatment plan. Pulmonology is repeating chest x-ray in a.m., if adequate fluid they plan on diagnostic thoracentesis. Radiation oncology consult for stereotactic radiosurgery. 2. Respiratory failure, extubated yesterday, denies shortness of breath. 3. Continue supportive care. - Attending Statement The exam, history, and the medical decision-making described in the above note were completed with the assistance of the mid-level provider. I reviewed and agree with the findings presented. I attest that I had a [id number] encounter with the patient on the same day, and personally performed and documented my assessment and findings in the medical record. Patient denies any new complaint Consult IR for ultrasound-guided diagnostic thoracentesis tomorrow morning. Consult radiation oncology for possible stereotactic radiosurgery for a very small right lower lobe lung mass biopsy consistent with non-small cell lung cancer.
[2018-09-11] MEDS: MethylPREDNISolone Sod Succinate Inj 125 MG/2 ML Vial IV.PUSH SCH ×4 (02:48→21:04)
[2018-09-11] MEDS: Heparin - SQ 10,000 UNITS/ML Vial SQ SCH ×2 (05:22→17:24)
[2018-09-11] MEDS: Insulin NovoLOG Aspart Correctional Sugar Inj SQ SCH ×4 (05:23→23:28)
--- NOTE | 2018-09-11 06:38 | XR ---
EXAM DATE: 09/11/2018 6:33 AM EST AGE/SEX: 77 years / Female INDICATIONS: Short of breath. Evaluate lung cancer and pleural effusion. CLINICAL DATA: This is the patient's subsequent encounter. Patient reports that signs and symptoms h ave been present for 2 days and indicates a pain score of 0/10. MEDICAL/SURGICAL HISTORY: Carcinoma, lung. Non-responsive. COMPARISON: [facility] [place], CHEST 1V SINGLE AP, 09/10/2018. . FINDINGS: A single AP view of the chest demonstrates the lungs to be symmetrically aerated with stable intersti tial prominence bilaterally which may be chronic. Cystoscopy right basilar consolidation/effusion. Th ere may be a small left-sided effusion with some blunting of the costophrenic angle. Heart size is no rmal. Atherosclerotic calcification of the aortic arch. Levoscoliosis of the dorsal spine with associ ated degenerative changes. Osseous structures are otherwise intact. CONCLUSION: 1. Stable interstitial prominence bilaterally. 2. Right basilar consolidation/effusion with possible small left-sided effusion. 3. No significant change from prior Electronically signed by: Manas Diaz MD Board Certified Radiologist 09/11/2018 6:37 AM EST
[2018-09-11 07:21] LABS: Hematocrit 31.5 % (35.0-46.0); Hemoglobin 10.7 gm/dL (11.6-15.3); Mean Corpuscular HGB Conc 34.1 % (32.0-36.0); Mean Corpuscular Hemoglobin 31.1 pg (27.0-34.0); Mean Corpuscular Volume 91.1 fL (80.0-100.0); Platelet Count 130 th/mm3 (150-450); Red Blood Count 3.46 mil/mm3 (4.00-5.30); Red Cell Distribution Width 15.3 % (11.6-17.2); White Blood Count 6.7 th/mm3 (4.0-11.0)
[2018-09-11 08:11] LABS: Carbon Dioxide 24.3 meq/L (21.0-32.0); Magnesium 1.8 mg/dL (1.5-2.5); Phosphorus 2.1 mg/dL (2.5-4.9); Potassium 4.2 meq/L (3.5-5.1)
[2018-09-11] MEDS: Carvedilol 6.25 MG Tablet PO SCH ×2 (08:59→21:05)
[2018-09-11] MEDS: Senna/Docusate Sodium 8.6/50 MG Tablet PO SCH ×2 (08:59→21:05)
[2018-09-11] MEDS: Famotidine PF Inj 20 MG/2 ML Vial IV.PUSH SCH ×2 (08:59→21:04)
--- NOTE | 2018-09-11 11:23 | P.PNONC ---
Subjective Interval history: Patient sitting in chair, she is surrounded by family. She is pending diagnostic ultrasound guided thoracentesis. Discussed with the patient and her daughter that we have consulted radiation oncology for consideration of stereotactic radiation surgery. Patient wants no complaints at this time. Denies any shortness of breath etc. Objective Vital Signs/Intake & Output: Vital Signs 09/10/18 12:00 09/10/18 13:08 09/10/18 13:14 Temperature 98.1 F Pulse Rate 83 87 Respiratory Rate 16 18 Blood Pressure 142/69 H Pulse Oximetry 97 95 09/10/18 14:00 09/10/18 15:00 09/10/18 16:00 Temperature 99 F Pulse Rate 93 H 89 84 Respiratory Rate 16 16 17 Blood Pressure 163/89 H 151/84 H Pulse Oximetry 96 95 96 09/10/18 17:00 09/10/18 17:43 09/10/18 20:00 Temperature 98.1 F Pulse Rate 86 81 95 H Respiratory Rate 17 16 22 Blood Pressure 169/97 H 154/77 H Pulse Oximetry 96 09/10/18 23:47 09/11/18 00:00 09/11/18 00:32 Temperature 98.0 F Pulse Rate 89 87 Respiratory Rate 15 20 15 Blood Pressure 151/83 H Pulse Oximetry 95 96 09/11/18 03:28 09/11/18 08:00 09/11/18 09:04 Temperature 97.5 F L Pulse Rate 79 83 103 H Respiratory Rate 12 18 16 Blood Pressure 184/97 H Pulse Oximetry 97 95 Intake & Output 09/10/18 09/11/18 09/11/18 18:59 06:59 18:59 Intake Total 120 / 120 Output Total 3 / 3 Balance 117 / 117 Weight 58.6 kg Intake: Oral 120 / 120 Output: Urine 3 / 3 Other: # Voids 1 Date of Last Bowel Movement 09/10/18 # Bowel Movements 2 # Incontinent Bowel Movements 1 Result Diagrams: 09/11/18 07:01 09/11/18 07:01 Laboratory Results: Laboratory Results - last 24 hr 09/10/18 09/10/18 09/10/18 11:56 17:34 23:54 WBC RBC Hgb Hct MCV MCH MCHC RDW Plt Count MPV Sodium Potassium Chloride Carbon Dioxide Anion Gap BUN Creatinine Estimated GFR POC Glucose 161 H 147 H 205 H Random Glucose Calcium Phosphorus Magnesium 09/11/18 09/11/18 09/11/18 05:21 07:01 07:01 WBC 6.7 RBC 3.46 L Hgb 10.7 L Hct 31.5 L MCV 91.1 MCH 31.1 MCHC 34.1 RDW 15.3 Plt Count 130 L MPV 11.0 Sodium 143 Potassium 4.2 D Chloride 112 H Carbon Dioxide 24.3 Anion Gap 7 BUN 34 H Creatinine 1.45 H Estimated GFR 42 L POC Glucose 175 H Random Glucose 153 H Calcium 8.0 L Phosphorus 2.1 L D Magnesium 1.8 Culture Results: Microbiology 09/08/18 00:19 Gram Stain - Final Sputum - Endotracheal Sputum Culture - Final Moderate growth normal respiratory [place] 09/04/18 15:56 Aerobic Blood Culture - Final Blood - Peripheral No growth in 5 days Anaerobic Blood Culture - Final No growth in 5 days 09/04/18 14:50 Aerobic Blood Culture - Final Blood - Peripheral No growth in 5 days Anaerobic Blood Culture - Final No growth in 5 days Imaging Studies: Impressions Chest X-Ray 09/11/18 00:00 CONCLUSION: 1. Stable interstitial prominence bilaterally. 2. Right basilar consolidation/effusion with possible small left-sided effusion. 3. No significant change from prior Medications: Active Medications Generic Name Dose Route Start Last Admin Trade Name Freq PRN Reason Stop Dose Admin Albuterol 1 ampul 09/08/18 00:00 09/11/18 09:00 Duoneb Neb ([facility]) NEB 1 ampul Q4HR NEB [facility] Administration Atorvastatin Calcium 80 mg 09/04/18 18:00 09/10/18 17:43 Lipitor PO 80 mg DAILY@1800 [facility] Administration Carvedilol 12.5 mg 09/09/18 17:17 09/11/18 08:59 Coreg PO 12.5 mg BID [facility] Administration Famotidine 20 mg 09/08/18 21:00 09/11/18 08:59 Pepcid Pf Inj IV.PUSH 20 mg Q12HR [facility] Administration Heparin Sodium (Porcine) 5,000 units 09/04/18 18:00 09/11/18 05:22 Heparin Inj SQ 5,000 units Q12H [facility] Administration Insulin Aspart 0 unit 09/08/18 06:00 09/11/18 05:23 Novolog Insulin Correctional Sugar Inj SQ 1 unit Q6HR [facility] Administration Protocol Labetalol HCl 20 mg 09/09/18 17:17 09/09/18 18:31 Trandate Inj IV.PUSH 20 mg Q1H PRN Administration SBP >180 Methylprednisolone Sodium Succinate 60 mg 09/08/18 02:00 09/11/18 08:58 Solumedrol Inj IV.PUSH 60 mg Q6H [facility] Administration Senna/Docusate Sodium 1 tab 09/04/18 21:00 09/11/18 08:59 Kamila-Colace PO 1 tab BID [facility] Administration Sodium Chloride 2 ml 09/04/18 21:00 09/11/18 08:59 Ns Flush IV.FLUSH 2 ml BID [facility] Administration Objective Remarks: GENERAL: Frail elderly female patient, in no acute distress. SKIN: Warm and dry. HEAD: Normocephalic. EYES: No scleral icterus. No injection or drainage. NECK: Supple, trachea midline. CARDIOVASCULAR: + S1/S2, grade 4/6 murmur noted. RESPIRATORY: Anterior breath sounds clear, equal bilaterally. Nonlabored at rest. GASTROINTESTINAL: Abdomen soft, non-tender, nondistended. EXTREMITIES: No cyanosis, or edema. MUSCULOSKELETAL: Adequate muscle tone. NEUROLOGICAL: No obvious focal deficit. Awake, alert, and oriented x3. PSYCHIATRIC: Appropriate mood and affect; insight and judgment normal Assessment/Plan - Plan Ms. Swanson is a pleasant 77-year-old elderly female patient with a newly diagnosed squamous cell carcinoma. Plan: 1. Squamous cell carcinoma, pending diagnostic thoracentesis today. Consult placed for radiation oncology to consider stereotactic radiosurgery. 2. Respiratory failure, resolved. She denies any further shortness of breath. 3. Discussed plan with daughter. - Attending Statement The exam, history, and the medical decision-making described in the above note were completed with the assistance of the mid-level provider. I reviewed and agree with the findings presented. I attest that I had a [id number] encounter with the patient on the same day, and personally performed and documented my assessment and findings in the medical record. Patient denies any new complaint. Patient underwent diagnostic thoracentesis today by IR. Around 600 cc of pleural fluid was removed. Cytology is pending. Consult radiation oncology for stereotactic radiosurgery for very small right lower lobe lung mass if the cytology of pleural fluid is negative However if the cytology of pleural fluid comes back positive for malignancy then we will discussed with the patient regarding systemic treatment
--- NOTE | 2018-09-11 12:26 | XR ---
EXAM DATE: 09/11/2018 12:23 PM EST AGE/SEX: 77 years / Female INDICATIONS: Post Thoracentesis Right side CLINICAL DATA: This is the patient's initial encounter. Patient reports that signs and symptoms have been present for 1 day and indicates a pain score of Nonresponsive. MEDICAL/SURGICAL HISTORY: . Carcinoma, lung. None. COMPARISON: [facility] [place] CHEST 1V SINGLE AP, 09/11/2018. . FINDINGS: There is no pneumothorax following thoracentesis on the right. Decrease in amount of pleural effusion Left lung clear The heart and pulmonary vascularity are normal. CONCLUSION: Negative for pneumothorax following thoracentesis Electronically signed by: Emory Regalado MD Board Certified Radiologist 09/11/2018 12:24 PM EST
[2018-09-11 13:29] LABS: Total Protein,Pleural Fluid 2.1 gm/dL
[2018-09-11 13:59] LABS: Eosinophils,Pleural Fluid 1 %; Lymphocytes,Pleural Fluid 67 %; Mesothelial,Pleural Fluid 3 %; Monocytes,Pleural Fluid 7 %; Neutrophils,Pleural Fluid 21 %; RBC,Pleural Fluid 45256 /mm3 (0-0)
--- NOTE | 2018-09-11 14:42 | P.PNIM ---
Subjective Interval history: Patient laying down in bed. In no acute distress following thoracentesis today. No specific complaints from the patient. Physical Exam Vital signs: Vital Signs 09/10/18 15:00 09/10/18 16:00 09/10/18 17:00 Temperature 99 F Pulse Rate 89 84 86 Respiratory Rate 16 17 17 Blood Pressure 163/89 H 151/84 H 169/97 H Pulse Oximetry 95 96 09/10/18 17:43 09/10/18 20:00 09/10/18 23:47 Temperature 98.1 F Pulse Rate 81 95 H Respiratory Rate 16 22 15 Blood Pressure 154/77 H Pulse Oximetry 96 95 09/11/18 00:00 09/11/18 00:32 09/11/18 03:28 Temperature 98.0 F Pulse Rate 89 87 79 Respiratory Rate 20 15 12 Blood Pressure 151/83 H Pulse Oximetry 96 09/11/18 08:00 09/11/18 09:04 09/11/18 12:33 Temperature 97.5 F L 97.9 F Pulse Rate 83 103 H 82 Respiratory Rate 18 16 18 Blood Pressure 184/97 H 186/95 H Pulse Oximetry 97 95 94 L 09/11/18 13:05 Temperature 97.8 F Pulse Rate 86 Respiratory Rate 19 Blood Pressure 138/106 H Pulse Oximetry 95 Intake & Output 09/10/18 09/11/18 09/11/18 18:59 06:59 18:59 Intake Total 120 / 120 Output Total 3 / 3 Balance 117 / 117 Weight 58.6 kg Intake: Oral 120 / 120 Output: Urine 3 / 3 Other: # Voids 1 Date of Last Bowel Movement 09/10/18 # Bowel Movements 2 # Incontinent Bowel Movements 1 Narrative: Awake and alert x 1 S1S2 Decreased breath sounds on the right base No edema of exts Can move all 4 exts, sensation intact b/l Urinary Catheter Management Straight: Cath placed during this visit: yes Reason for continuing: Not indwelling catheter Insertion date: 09/04/18 Insertion time: 14:24 Female External: Cath placed during this visit: yes Reason for continuing: Not indwelling catheter Insertion date: 09/08/18 Insertion time: 00:00 Results Labs CBC & Chem 7: 09/11/18 07:01 09/11/18 07:01 Labs: Microbiology 09/08/18 00:19 Sputum - Endotracheal Gram Stain - Final 09/08/18 00:19 Sputum - Endotracheal Sputum Culture - Final Moderate growth normal respiratory [place] Imaging Imaging: Impressions Chest X-Ray 09/11/18 00:00 CONCLUSION: 1. Stable interstitial prominence bilaterally. 2. Right basilar consolidation/effusion with possible small left-sided effusion. 3. No significant change from prior Chest X-Ray 09/11/18 00:00 CONCLUSION: Negative for pneumothorax following thoracentesis Assessment and Plan Plan This patient is a 77 y/o white female admitted on 09/04 with a pmh of OA, dld, CAD, CVA, DM II. Patient is wheel chair bound at baseline. She was admitted for nausea and vomiting with ELVA, elevated Lactate, and bandemia. CT abd showed a right lung mass with pleural effusion. CT guided bx was done on 09/06. On 09/07 a Halicat was called because of worsening shortness of breath and hypoxia, CXR showed a patchy right middle to lower lobe infiltrate and right lung effusion. Patient was subsequently intubated and sent to the ICU. 09/10 the patient was extubated successfully. 1. Acute hypoxic hypercapnic resp failure 2/2 Pna and COPD exacerbation and newly diagnosed Squamous cell carcinoma 2. Acute metabolic encephalopathy Patient is s/p thoracentesis today. Consult for radiation oncology placed to consider sterotactic radiosurgery. Hem/Onc following. We appreciate their recommnendations. Respiratory failure has resolved. Patient is on room air. Pulm following the patient, continue IV steroids Repeat cxr shows no pneumothorax. Blood cxs are negative. CTA neg for PE 3. HTN Continue bb, norvasc added to bp meds Continue to monitor bp and adjust meds as needed. 4. DLD/DMII Continue statin. Continue Sliding scale. 5. ELVA 09/07 cr 0.84, currently 1.4, bun 34 Start light IVF hydration Follow up am labs. Heparin for dvt prophylaxis. Progress Note: Quality VTE Deep Vein Thrombosis/Pulmonary Embolism Present on Admission: No
[2018-09-11] MEDS ORDERED: amLODIPine 5 MG Tablet PO SCH (15:00)
--- NOTE | 2018-09-11 16:31 | US ---
EXAM DATE: 09/11/2018 12:46 PM EST AGE/SEX: 77 years / Female INDICATIONS: Right pleural effusion. CLINICAL DATA: This is the patient's subsequent encounter. Patient reports that signs and symptoms h ave been present for 1 week and indicates a pain score of 2/10. MEDICAL/SURGICAL HISTORY: . CVA. Diabetes. Hysterectomy. Hyperlipidemia. HTN. . Intravascu lar stent placement. COMPARISON: No prior exams available for comparison. FLUID: Total volume of 600 cc cc of cloudy, red fluid was removed. Fluid was sent to lab for ordered studies. . . TECHNIQUE: Ultrasound guidance for thoracentesis. Thoracentesis. The risks, benefits, and alternatives to ultrasound guided thoracentesis were explained to the patien t in lay simple terms, including the risk of bleeding and infection. Written and verbal informed con sent was obtained. Appropriate area for right thoracentesis was marked under ultrasound guidance with the patient in the upright position. Overlying skin was prepped and draped in the usual sterile fashion and with local anesthetic, a dermatotomy was made with an 11 blade scalpel. A 6 Azeri thoracentesis catheter was placed in the pleural space and fluid was removed. Catheter was then removed and a sterile dressing applied. There were no immediate complications. The patient tolerated the procedure well and the lef t the ultrasound suite in stable condition. Chest radiograph is to be obtained. FINDINGS: Adequate fluid for thoracentesis. CONCLUSION: 1. Uncomplicated thoracentesis. Electronically signed by: Shaji Almanzar MD Board Certified Radiologist 09/11/2018 4:29 PM EST
[2018-09-11] MEDS: hydrALAZINE 25 MG Tablet PO SCH (17:23)
[2018-09-11] MEDS ORDERED: amLODIPine 5 MG Tablet PO ONE (17:30)
--- NOTE | 2018-09-11 18:41 | P.PN ---
Subjective Interval history: Went for thoracentesis and had 700 cc of reddish fluid drained from right pleural space. Breathing easy and no chest pain. Physical Exam Vital signs: Vital Signs 09/10/18 20:00 09/10/18 23:47 09/11/18 00:00 Temperature 98.1 F 98.0 F Pulse Rate 95 H 89 Respiratory Rate 22 15 20 Blood Pressure 154/77 H 151/83 H Pulse Oximetry 96 95 96 09/11/18 00:32 09/11/18 03:28 09/11/18 08:00 Temperature 97.5 F L Pulse Rate 87 79 83 Respiratory Rate 15 12 18 Blood Pressure 184/97 H Pulse Oximetry 97 09/11/18 09:04 09/11/18 12:33 09/11/18 13:05 Temperature 97.9 F 97.8 F Pulse Rate 103 H 82 86 Respiratory Rate 16 18 19 Blood Pressure 186/95 H 138/106 H Pulse Oximetry 95 94 L 95 09/11/18 15:00 09/11/18 16:00 Temperature 97.3 F L Pulse Rate 93 H 92 H Respiratory Rate 16 18 Blood Pressure 198/92 H Pulse Oximetry 99 Intake & Output 09/10/18 09/11/18 09/11/18 18:59 06:59 18:59 Intake Total 120 / 120 Output Total 3 / 3 Balance 117 / 117 Weight 58.6 kg Intake: Oral 120 / 120 Output: Urine 3 / 3 Other: # Voids 1 Date of Last Bowel Movement 09/10/18 # Bowel Movements 2 # Incontinent Bowel Movements 1 Narrative: GENERAL: Elderly -[place] female who alert in no distress HEAD: Atraumatic. Normocephalic. Skin was dry and cool EYES: Pupils equal and round. No scleral icterus. No injection or drainage. ENT: No nasal bleeding or discharge. Mucous membranes pink and moist. NECK: Trachea midline. No JVD. CARDIOVASCULAR: Regular rate and rhythm. No murmurs rubs or gallops. RESPIRATORY: Decreased breath sounds right base with occasional crackles at the bases. GASTROINTESTINAL: Abdomen soft, non-tender, nondistended. Bowel sounds present. MUSCULOSKELETAL: Extremities without clubbing, cyanosis, or edema. No obvious deformities. NEUROLOGICAL: Awake moves all extremities and answers all questions no focal deficit. - Urinary Catheter Management Straight Cath placed during this visit: yes Reason for continuing: Not indwelling catheter Insertion date: 09/04/18 Insertion time: 14:24 Female External Cath placed during this visit: yes Reason for continuing: Not indwelling catheter Insertion date: 09/08/18 Insertion time: 00:00 Results - Labs CBC & Chem 7: 09/11/18 07:01 09/11/18 07:01 Laboratory Results - last 24 hr 09/10/18 09/11/18 09/11/18 23:54 05:21 07:01 WBC 6.7 RBC 3.46 L Hgb 10.7 L Hct 31.5 L MCV 91.1 MCH 31.1 MCHC 34.1 RDW 15.3 Plt Count 130 L MPV 11.0 Sodium Potassium Chloride Carbon Dioxide Anion Gap BUN Creatinine Estimated GFR POC Glucose 205 H 175 H Random Glucose Calcium Phosphorus Magnesium Carcinoembryonic Ag Pleural pH Pleural RBC Pleural Nuc Cells Pleural Neutrophils Pleural Lymphocytes Pleural Monocytes Pleural Eosinophils Pleural Histocytes Pleural Mesothelial Pleural Total Protein Pleural LDH Pleural Glucose 09/11/18 09/11/18 09/11/18 07:01 07:01 11:45 WBC RBC Hgb Hct MCV MCH MCHC RDW Plt Count MPV Sodium 143 Potassium 4.2 D Chloride 112 H Carbon Dioxide 24.3 Anion Gap 7 BUN 34 H Creatinine 1.45 H Estimated GFR 42 L POC Glucose Random Glucose 153 H Calcium 8.0 L Phosphorus 2.1 L D Magnesium 1.8 Carcinoembryonic Ag Cancelled Pleural pH Pleural RBC [address]204 H Pleural Nuc Cells 217 H Pleural Neutrophils 21 Pleural Lymphocytes 67 Pleural Monocytes 7 Pleural Eosinophils 1 Pleural Histocytes 1 Pleural Mesothelial 3 Pleural Total Protein Pleural LDH Pleural Glucose 09/11/18 09/11/18 09/11/18 11:45 13:24 17:26 WBC RBC Hgb Hct MCV MCH MCHC RDW Plt Count MPV Sodium Potassium Chloride Carbon Dioxide Anion Gap BUN Creatinine Estimated GFR POC Glucose 130 H 232 H Random Glucose Calcium Phosphorus Magnesium Carcinoembryonic Ag Pleural pH 8.0 Pleural RBC Pleural Nuc Cells Pleural Neutrophils Pleural Lymphocytes Pleural Monocytes Pleural Eosinophils Pleural Histocytes Pleural Mesothelial Pleural Total Protein 2.1 Pleural LDH 118 Pleural Glucose 157 - Imaging Impressions Chest X-Ray 09/11/18 00:00 CONCLUSION: 1. Stable interstitial prominence bilaterally. 2. Right basilar consolidation/effusion with possible small left-sided effusion. 3. No significant change from prior Chest X-Ray 09/11/18 00:00 CONCLUSION: Negative for pneumothorax following thoracentesis Thoracentesis Ultrasound 09/11/18 00:00 CONCLUSION: 1. Uncomplicated thoracentesis. Assessment and Plan - Assessment (1) Pulmonary nodule, right Code(s): R91.1 - Solitary pulmonary nodule Status: Acute (2) Acute hypercapnic respiratory failure Code(s): J96.02 - Acute respiratory failure with hypercapnia Status: Acute (3) Right lower lobe lung mass Code(s): R91.8 - Other nonspecific abnormal finding of lung field Status: Acute (4) Pleural effusion Code(s): J90 - Pleural effusion, not elsewhere classified Status: Acute (5) Mass of left lung Code(s): R91.8 - Other nonspecific abnormal finding of lung field Status: Acute (6) ELVA (acute kidney injury) Code(s): N17.9 - Acute kidney failure, unspecified Status: Resolved - Plan 1. Resp Insuff- Extubated 09/09 2. 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 3. Small right pleural effusion. 4. Remote history of tobacco use. 5. Mild acute kidney injury, improving. 6. Pancytopenia. 7. Hypertension. 8. CVA. 9. Hyperlipidemia. 10. Diabetes mellitus. Plan Continue with oxygen at 2 L and maintain sats >92%. DuoNeb nebs 4 times daily and, IS every 3 hours Solumederol 40mg IV Q 12 hours Repeat CXR in am CBC BMP in a.m. Await pleural fluid cytology and cultures
[2018-09-12] MEDS: MethylPREDNISolone Sod Succinate Inj 125 MG/2 ML Vial IV.PUSH SCH ×2 (01:16→08:13)
[2018-09-12] MEDS: Heparin - SQ 10,000 UNITS/ML Vial SQ SCH ×2 (05:15→18:58)
[2018-09-12] MEDS: Insulin NovoLOG Aspart Correctional Sugar Inj SQ SCH ×3 (05:17→19:01)
[2018-09-12] MEDS: Famotidine PF Inj 20 MG/2 ML Vial IV.PUSH SCH ×2 (08:12→21:30)
[2018-09-12] MEDS: Senna/Docusate Sodium 8.6/50 MG Tablet PO SCH ×2 (08:13→21:30)
[2018-09-12] MEDS: hydrALAZINE 25 MG Tablet PO SCH ×2 (08:13→13:04)
[2018-09-12] MEDS: amLODIPine 10 MG Tablet PO SCH (08:14)
[2018-09-12] MEDS: Carvedilol 6.25 MG Tablet PO SCH ×2 (08:14→21:30)
[2018-09-12 09:36] LABS: Hematocrit 36.8 % (35.0-46.0); Hemoglobin 12.2 gm/dL (11.6-15.3); Mean Corpuscular HGB Conc 33.2 % (32.0-36.0); Mean Corpuscular Hemoglobin 30.4 pg (27.0-34.0); Mean Corpuscular Volume 91.6 fL (80.0-100.0); Mean Platelet Volume 11.8 fL (7.0-11.0); Platelet Count 155 th/mm3 (150-450); Red Blood Count 4.02 mil/mm3 (4.00-5.30); Red Cell Distribution Width 15.1 % (11.6-17.2); White Blood Count 10.4 th/mm3 (4.0-11.0)
[2018-09-12 09:53] LABS: Calcium 8.3 mg/dL (8.5-10.1); Carbon Dioxide 21.5 meq/L (21.0-32.0); Potassium 4.1 meq/L (3.5-5.1)
[2018-09-12 09:54] LABS: Phosphorus 2.5 mg/dL (2.5-4.9)
--- NOTE | 2018-09-12 10:39 | P.CON ---
History of Present Illness Service: Radiation oncology Consult date: 09/12/18 Requesting Physician: Felipe Lindsay Primary Care Provider: Syed Luis MD Chief Complaint: Nausea and vomiting History of Present Illness: 77-year-old white female which came to the ER with a history of intractable nausea and vomiting, patient had a previous history of CVA, hypercholesterolemia , diabetes mellitus, hypertension. While in the ER the patient underwent a workup which included a CT of the abdomen and pelvis CTA. Imaging study detected for the patient to have a 1.8 cm right lower lung mass with moderate pleural effusion. 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 She recently had thoracocentesis cytology is pending on the a specimen. I have discussed this case with Dr. Lindsay today. It appears that during hospitalization the patient had respiratory failure and was intubated but at this point is extubated and doing well. Patient denies any exacerbating factors and no signs and symptoms of her current diagnosis of lung carcinoma. A consult has been placed for discussion of treatment options with the patient for cure. Review of Systems Constitutional: Reports fatigue, Reports lack of energy Eyes: Denies blind spots, Denies blurry vision, Denies bulging eyes, Denies change in vision, Denies double vision, Denies discharge, Denies dry eyes, Denies floaters, Denies irritation, Denies itchy eyes, Denies loss of vision, Denies pain, Denies requires corrective lenses, Denies sensitivity to light, Denies other Ears, Nose, Mouth, and Throat: Denies abnormal hearing, Denies bleeding gums, Denies bad breath, Denies change in voice, Denies dental pain, Denies difficulty swallowing, Denies dizziness, Denies dry mouth, Denies ear discharge , Denies ear pain, Denies facial pain, Denies headache(s), Denies hearing loss, Denies hoarseness, Denies lip swelling, Denies nosebleed, Denies mouth lesions, Denies mouth pain, Denies nasal congestion, Denies nasal discharge, Denies nasal obstruction, Denies nasal trauma, Denies neck lump, Denies neck pain, Denies nose pain, Denies pain with swallowing, Denies poor balance, Denies post nasal drip, Denies ringing in the ears, Denies sinus pain, Denies sinus pressure , Denies sore throat, Denies throat swelling, Denies tongue swelling, Denies other Cardiovascular: Denies chest pain, Denies chest pain at rest, Denies chest pain with activity, Denies excessive sweating, Denies fainting, Denies fast heart rate, Denies foot swelling, Denies generalized swelling, Denies irregular heart rhythm, Denies leg pain with activity, Denies leg sores, Denies leg swelling, Denies lightheadedness, Denies radiating jaw, neck or arm pain, Denies rapid, pounding, or irregular heartbeat, Denies shortness of breath, Denies shortness of breath with activity, Denies shortness of breath when lying down, Denies shortness of breath causing sudden awakening, Denies slow heart rate, Denies other Respiratory: Denies change in phlegm color, Denies chest congestion, Denies cough, Denies coughing up blood, Denies excessive phlegm production, Denies pain on inspiration, Denies pain with cough, Denies shortness of breath, Denies shortness of breath with activity, Denies snoring, Denies stridor, Denies wheezing, Denies other Gastrointestinal: Denies abdominal pain, Denies belching, Denies black, tarry stools, Denies bloating, Denies bright, red blood in stools, Denies change in bowel habits, Denies constant urge to pass stool, Denies change in stools, Denies coffee ground vomit, Denies constipation, Denies cramping, Denies difficulty swallowing, Denies excessive passing of gas, Denies feeling full early, Denies heartburn, Denies incontinent of stools, Denies loose stools, Denies nausea, Denies pain with swallowing, Denies vomiting, Denies vomiting blood, Denies other Genitourinary: Denies abnormal periods, Denies abnormal vaginal bleeding, Denies absent period, Denies bleeding between periods, Denies blood in urine, Denies difficulty starting urination, Denies difficulty urinating, Denies dribbling after urination, Denies frequent nighttime urination, Denies genital itching, Denies genital lesions, Denies heavy periods, Denies hot flashes, Denies light periods, Denies nipple discharge, Denies painful intercourse, Denies painful periods, Denies painful urination, Denies pelvic pain, Denies prolapse symptoms, Denies sexual problems, Denies side pain, Denies urinary incontinence, Denies urinary urgency, Denies vaginal discharge, Denies vaginal dryness, Denies vaginal odor, Denies vaginal itching, Denies other Musculoskeletal: Denies abnormal walking, Denies back pain, Denies body aches, Denies decreased muscle mass, Denies deformity, Denies joint pain, Denies joint swelling, Denies limited joint movement, Denies loss of height, Denies muscle cramps, Denies muscle weakness, Denies neck pain, Denies numbness, Denies radiating pain into limb, Denies stiffness, Denies tingling, Denies other Skin/Breast: Denies acne, Denies bleeding lesions, Denies boil, Denies breast swelling, Denies breast skin changes, Denies breast pain, Denies breast lump, Denies change in breast shape, Denies change in hair, Denies change in skin color, Denies changing lesions, Denies dry skin, Denies excessive hair growth, Denies hair loss, Denies itching, Denies lesions, Denies nail changes, Denies new lesions, Denies nipple discharge, Denies non-healing lesions, Denies redness , Denies sensitivity to light, Denies rash, Denies skin pain, Denies skin ulcer , Denies sores, Denies stretch boyd, Denies unusual bruising, Denies wounds, Denies yellowing of the skin, Denies other Neurologic: Denies abnormal hearing, Denies abnormal movements, Denies abnormal speech, Denies abnormal walking, Denies behavioral changes, Denies burning sensations, Denies confusion, Denies dizziness, Denies fainting, Denies frequent falls, Denies headache(s), Denies lack of coordination, Denies localized weakness, Denies loss of vision, Denies memory loss, Denies numbness, Denies other visual disturbances, Denies radiating pain, Denies restless legs, Denies convulsions, Denies seizure-like activity, Denies sensory deficit, Denies tingling, Denies tingling/numbness/burning sensations, Denies tremor(s), Denies unsteadiness, Denies weakness, Denies other Psychiatric: Denies abnormal sleep pattern, Denies anxiety, Denies behavioral changes, Denies change in appetite, Denies change in sex drive, Denies confusion , Denies depression, Denies difficulty concentrating, Denies hearing things others do not hear, Denies hopelessness, Denies irritability, Denies lack of enjoyment, Denies memory loss, Denies mood swings, Denies panic attacks, Denies paranoia, Denies seeing things others do not see, Denies sensing things others do not sense, Denies tactile hallucinations, Denies thoughts of hurting/killing others, Denies thoughts of hurting/killing yourself, Denies other Endocrine: Denies cold intolerance, Denies excessive sweating, Denies flushing, Denies heat intolerance, Denies increased hunger, Denies increased thirst, Denies increased urination, Denies rapid, pounding, or irregular heartbeat, Denies other Hematologic/Lymphatic: Denies easy bleeding, Denies easy bruising, Denies enlarged lymph nodes, Denies other Allergic/Immunologic: Denies GI upset with certain foods, Denies hives, Denies itchy eyes, Denies lip swelling, Denies seasonal runny nose, Denies throat swelling, Denies tongue swelling, Denies wheezing, Denies other PMFSH - History History Provided By: Patient, [employer] / EMT - Medical History Medical History: Medical History (Last Reviewed 09/12/18 @ 08:39 by Shannan Mullen [facility]) CVA (cerebral vascular accident) Diabetes 1.5, managed as type 2 Hx of hysterectomy Hyperlipidemia Hypertension Osteoarthritis Wheelchair bound - Surgical History Surgical History: Surgical History (Last Reviewed 09/08/18 @ 10:41 by Amaya De La Garza MD) History of intravascular stent placement - Family History Family History: Family History (Last Reviewed 09/08/18 @ 10:41 by Amaya De La Garza MD) Other Dementia - Tobacco History Second Hand Smoke Exposure: Yes Smoking Status: Former smoker - Alcohol History How Often Do You Have a Drink Containing Alcohol: Never - Substance Use History Substance History: No History of Abuse - Travel History Recent Travel in the [place] Within the Last 8 Weeks: No Recent Travel Out of the Country Within the Last 8 Weeks: No - Immunization History Tetanus Immunization: Unsure Medications and Allergies Active Medications: Active Medications Acetaminophen (Tylenol) 650 mg PO Q4H PRN PRN Reason: Temp > 100.4 Al Hydroxide/Mg Hydroxide (Milk Of Magnesia Liq) 30 ml PO Q12H PRN PRN Reason: Mild Constipation Albuterol (Albuterol Neb (Prn)) 2.5 mg NEB Q2HR NEB PRN PRN Reason: BREATHING Amlodipine Besylate (Norvasc) 10 mg PO DAILY COUNTS INCLUDE 234 BEDS AT THE [facility] Last Admin: 09/12/18 08:14 Dose: 10 mg Atorvastatin Calcium (Lipitor) 80 mg PO DAILY@1800 COUNTS INCLUDE 234 BEDS AT THE [facility] Last Admin: 09/11/18 17:23 Dose: 80 mg Bisacodyl (Dulcolax Supp) 10 mg RECTAL DAILY PRN PRN Reason: SEVERE CONSITIPATION Carvedilol (Coreg) 12.5 mg PO BID COUNTS INCLUDE 234 BEDS AT THE [facility] Last Admin: 09/12/18 08:14 Dose: 12.5 mg Dextrose (D50w Vial) 50 ml IV.PUSH UNSCH PRN PRN Reason: PER HYPOGLYCEMIA PROTOCOL Famotidine (Pepcid Pf Inj) 20 mg IV.PUSH Q12HR COUNTS INCLUDE 234 BEDS AT THE [facility] Last Admin: 09/12/18 08:12 Dose: 20 mg Glucagon (Glucagon Inj) 1 mg OTHER PRN PRN PRN Reason: for Hypoglycemia Protocol Heparin Sodium (Porcine) (Heparin Inj) 5,000 units SQ Q12H COUNTS INCLUDE 234 BEDS AT THE [facility] Last Admin: 09/12/18 05:15 Dose: 5,000 units Hydralazine HCl (Apresoline) 25 mg PO TID COUNTS INCLUDE 234 BEDS AT THE [facility] Last Admin: 09/12/18 08:13 Dose: 25 mg Lactated Ringer's (Lr 1000 Ml Inj) 1,000 mls @ 60 mls/hr IV.CONT .[id number] COUNTS INCLUDE 234 BEDS AT THE [facility] Last Admin: 09/12/18 06:38 Dose: Not Given Insulin Aspart (Novolog Insulin Correctional Sugar Inj) 0 unit SQ Q6HR COUNTS INCLUDE 234 BEDS AT THE [facility]; Protocol Last Admin: 09/12/18 05:17 Dose: 3 unit Labetalol HCl (Trandate Inj) 20 mg IV.PUSH Q1H PRN PRN Reason: SBP >180 Last Admin: 09/09/18 18:31 Dose: 20 mg Lactulose (Lactulose Liq) 30 ml PO DAILY PRN PRN Reason: SEVERE CONSITIPATION Methylprednisolone Sodium Succinate (Solumedrol Inj) 60 mg IV.PUSH Q6H COUNTS INCLUDE 234 BEDS AT THE [facility] Last Admin: 09/12/18 08:13 Dose: 60 mg Ondansetron HCl (Zofran Inj) 4 mg IV.PUSH Q6H PRN PRN Reason: NAUSEA OR VOMITING Senna/Docusate Sodium (Kamila-Colace) 1 tab PO BID COUNTS INCLUDE 234 BEDS AT THE [facility] Last Admin: 09/12/18 08:13 Dose: 1 tab Sennosides (Senokot) 17.2 mg PO Q12H PRN PRN Reason: Moderate Constipation Sodium Chloride (Ns Flush) 2 ml IV.FLUSH BID COUNTS INCLUDE 234 BEDS AT THE [facility] Last Admin: 09/12/18 08:14 Dose: 2 ml Sodium Chloride (Ns Flush) 2 ml IV.FLUSH PRN PRN PRN Reason: FLUSH AFTER USING IV ACCESS Allergies Allergy/AdvReac Type Severity Reaction Status Date / Time No Known Allergies Allergy Verified 09/04/18 12:34 Home Medications Medication Instructions Recorded Confirmed Type alendronate [Fosamax] 70 mg PO QWEEK 09/04/18 09/04/18 History atorvastatin [Lipitor] 80 mg PO QPM 09/04/18 09/04/18 History carvedilol [Coreg] 6.25 mg PO BID 09/04/18 09/04/18 History lisinopril 10 mg PO DAILY 09/04/18 09/04/18 History metformin 500 mg PO BID 09/04/18 09/04/18 History Physical Exam Vital signs: Vital Signs 09/11/18 12:33 09/11/18 13:05 09/11/18 15:00 Temperature 97.9 F 97.8 F Pulse Rate 82 86 93 H Respiratory Rate 18 19 16 Blood Pressure 186/95 H 138/106 H Pulse Oximetry 94 L 95 09/11/18 16:00 09/11/18 20:00 09/11/18 20:56 Temperature 97.3 F L 98.2 F Pulse Rate 92 H 96 H 78 Respiratory Rate 18 20 14 Blood Pressure 198/92 H 176/99 H Pulse Oximetry 99 93 L 95 09/12/18 00:00 09/12/18 04:00 09/12/18 08:00 Temperature 97.7 F 97.9 F 97.3 F L Pulse Rate 87 79 86 Respiratory Rate 16 22 20 Blood Pressure 154/76 H 162/86 H 171/84 H Pulse Oximetry 94 L 95 95 Intake & Output 09/11/18 09/12/18 09/12/18 18:59 06:59 18:59 Intake Total 240 / 240 380 / 380 Output Total 250 / 250 500 / 500 Balance -10 / -10 -120 / -120 Weight 57.8 kg Intake: IV 380 / 380 LR 1000 mL Inj 1,000 ML @ 60 380 / 380 mls/hr IV.CONT .[id number] COUNTS INCLUDE 234 BEDS AT THE [facility] Rx# :[id number] Oral 240 / 240 Output: Urine 250 / 250 500 / 500 - Constitutional no acute distress, thin, cooperative - Routine HEENT Exam Head: Present: normocephalic, atraumatic Eye: Present: EOMI, PERRL ENT: Present: mucous membranes moist, external ear normal - Routine Neck Exam Present: supple - Routine Respiratory Exam Comments: Lungs were clear to auscultation bilaterally with appropriate ventilation. - Routine Cardiovascular Exam Comments: Heart was regular rate and rhythm with no murmurs - Routine Abdominal Exam Present: soft - Routine Extremities Exam Comments: Lower extremities with no edema. - Routine Skin Exam Present: intact - Routine Neurological Exam Present: alert, oriented X3, moving all extremities, vision grossly intact, hearing grossly intact, normal speech - Routine Psychiatric Exam Present: normal affect, normal thought process, cooperative - Urinary Catheter Management Straight Cath placed during this visit: yes Reason for continuing: Not indwelling catheter Insertion date: 09/04/18 Insertion time: 14:24 Female External Cath placed during this visit: yes Reason for continuing: Not indwelling catheter Insertion date: 09/08/18 Insertion time: 00:00 Results - Labs CBC & Chem 7: 09/12/18 08:47 09/12/18 08:47 Labs: Laboratory Results - last 24 hr 09/11/18 09/11/18 09/11/18 07:01 11:45 11:45 WBC RBC Hgb Hct MCV MCH MCHC RDW Plt Count MPV Sodium Potassium Chloride Carbon Dioxide Anion Gap BUN Creatinine Estimated GFR POC Glucose Random Glucose Calcium Phosphorus Magnesium Carcinoembryonic Ag Cancelled Pleural pH 8.0 Pleural RBC 16732 H Pleural Nuc Cells 217 H Pleural Neutrophils 21 Pleural Lymphocytes 67 Pleural Monocytes 7 Pleural Eosinophils 1 Pleural Histocytes 1 Pleural Mesothelial 3 Pleural Total Protein 2.1 Pleural LDH 118 Pleural Glucose 157 09/11/18 09/11/18 09/11/18 13:24 17:26 23:19 WBC RBC Hgb Hct MCV MCH MCHC RDW Plt Count MPV Sodium Potassium Chloride Carbon Dioxide Anion Gap BUN Creatinine Estimated GFR POC Glucose 130 H 232 H 224 H Random Glucose Calcium Phosphorus Magnesium Carcinoembryonic Ag Pleural pH Pleural RBC Pleural Nuc Cells Pleural Neutrophils Pleural Lymphocytes Pleural Monocytes Pleural Eosinophils Pleural Histocytes Pleural Mesothelial Pleural Total Protein Pleural LDH Pleural Glucose 09/12/18 09/12/18 09/12/18 05:17 08:47 08:47 WBC 10.4 RBC 4.02 Hgb 12.2 Hct 36.8 MCV 91.6 MCH 30.4 MCHC 33.2 RDW 15.1 Plt Count 155 MPV 11.8 H Sodium 139 Potassium 4.1 Chloride 110 H Carbon Dioxide 21.5 Anion Gap 8 BUN 34 H Creatinine 1.38 H Estimated GFR 45 L POC Glucose 218 H Random Glucose 188 H Calcium 8.3 L Phosphorus 2.5 Magnesium 2.0 Carcinoembryonic Ag Pleural pH Pleural RBC Pleural Nuc Cells Pleural Neutrophils Pleural Lymphocytes Pleural Monocytes Pleural Eosinophils Pleural Histocytes Pleural Mesothelial Pleural Total Protein Pleural LDH Pleural Glucose - Imaging Surgical pathology 09/06/2018: RIGHT LUNG, CT GUIDED NEEDLE CORE BIOPSY: POORLY DIFFERENTIATED SQUAMOUS CELL CARCINOMA. SEE COMMENT. Impressions Chest X-Ray 09/11/18 00:00 CONCLUSION: Negative for pneumothorax following thoracentesis Thoracentesis Ultrasound 09/11/18 00:00 CONCLUSION: 1. Uncomplicated thoracentesis. CT of the abdomen and pelvis 09/04/2018: CONCLUSION: 1. 1.7 cm mass in the lower lateral right lung partially included in the field- of-view scan. Also moderate size right pleural effusion. The findings are suspicious for malignancy. Recommend CT thorax to evaluate for additional lesions. 2. Moderate-sized bilateral fat-containing inguinal hernias. CT of the chest 09/04/2018: CONCLUSION: 1. Right lower lobe 1.8 x 1.4 x 1.6 cm pleural-based soft tissue mass of concern for primary bronchogenic carcinoma. There is a borderline prominent pretracheal lymph node. These findings could be further evaluated with PET CT to evaluate for hypermetabolic tumor. The lung mass would be amenable to CT- guided core biopsy. 2. Small right pleural effusion. 3. Small pericardial effusion. CT of the chest 09/08/2018: CONCLUSION: This study is negative for pulmonary embolism. Assessment and Plan - Assessment (1) Pulmonary nodule, right Code(s): R91.1 - Solitary pulmonary nodule Status: Acute (2) Right lower lobe lung mass Code(s): R91.8 - Other nonspecific abnormal finding of lung field Status: Acute - Plan Assessment: 77-year-old female with diagnosis of a squamosal carcinoma of the lung. Patient been evaluated for possible radiotherapy treatment options. Plan: I had extensive discussion with the patient in regards to the possible treatment modalities if the cytology is negative. Case has been discussed with Dr. Lindsay today. Recommendations are for radiosurgery to the solitary lung lesion if the cytology is negative. I would also like to have a PET scan when the patient gets a discharge, since there is no immediate need for radiotherapy. If the patient remains with one solitary nodule then she will be eligible for radiosurgery to the lung. I placed an order for a PET scan to be performed after discharge and I will see the patient back in 2 weeks, for discussion of treatment options. Discussed with the patient the possible treatment modalities as well as expected results and side effects. Side effects to the lung to include but limited to: Weakness and fatigue, decreased blood counts, erythema the skin, necrosis of skin, pain of the treated area, bone damage and fracture, costochondritis, lung damage, lung fibrosis, lung pneumonitis, the possibility becoming oxygen dependent, the possibility of becoming pulmonary cripple, heart damage, spinal cord damage, difficulty and pain with swallowing, esophageal strictures which may require dilation, brachial plexus damage. Patient is to rub was explained. She was advised if I could be of any further assistance at the please let me know otherwise we will proceed as above. Is an acutely ill patient, of an acute condition, that needs a treatment, to maintain her quality of life, improve her local control and survival. I have evaluated Dr. Lindsay's note from 09/08/2018, where he recommends thoracocentesis and radiosurgery. Dr. Lindsay,,thank you very much for the referral of this patient and allowing me to participate in her care. Should you have any further questions or concerns please do not hesitate to contact me
--- NOTE | 2018-09-12 10:56 | P.PNONC ---
Subjective Interval history: Patient sitting on BSC upon entering room. Patient reports feeling dizzy this morning, endorses feeling lightheaded and feeling as though the room is spinning. Patient noted to be using accessory muscles to breathe. Oral mucosa appears dry. Objective Vital Signs/Intake & Output: Vital Signs 09/11/18 12:33 09/11/18 13:05 09/11/18 15:00 Temperature 97.9 F 97.8 F Pulse Rate 82 86 93 H Respiratory Rate 18 19 16 Blood Pressure 186/95 H 138/106 H Pulse Oximetry 94 L 95 09/11/18 16:00 09/11/18 20:00 09/11/18 20:56 Temperature 97.3 F L 98.2 F Pulse Rate 92 H 96 H 78 Respiratory Rate 18 20 14 Blood Pressure 198/92 H 176/99 H Pulse Oximetry 99 93 L 95 09/12/18 00:00 09/12/18 04:00 09/12/18 08:00 Temperature 97.7 F 97.9 F 97.3 F L Pulse Rate 87 79 86 Respiratory Rate 16 22 20 Blood Pressure 154/76 H 162/86 H 171/84 H Pulse Oximetry 94 L 95 95 Intake & Output 09/11/18 09/12/18 09/12/18 18:59 06:59 18:59 Intake Total 240 / 240 380 / 380 Output Total 250 / 250 500 / 500 Balance -10 / -10 -120 / -120 Weight 57.8 kg Intake: IV 380 / 380 LR 1000 mL Inj 1,000 ML @ 60 380 / 380 mls/hr IV.CONT .[id number] [facility] Rx# :[id number] Oral 240 / 240 Output: Urine 250 / 250 500 / 500 Result Diagrams: 09/12/18 08:47 09/12/18 08:47 Laboratory Results: Laboratory Results - last 24 hr 09/11/18 09/11/18 09/11/18 07:01 11:45 11:45 WBC RBC Hgb Hct MCV MCH MCHC RDW Plt Count MPV Sodium Potassium Chloride Carbon Dioxide Anion Gap BUN Creatinine Estimated GFR POC Glucose Random Glucose Calcium Phosphorus Magnesium Carcinoembryonic Ag Cancelled Pleural pH 8.0 Pleural RBC 53845 H Pleural Nuc Cells 217 H Pleural Neutrophils 21 Pleural Lymphocytes 67 Pleural Monocytes 7 Pleural Eosinophils 1 Pleural Histocytes 1 Pleural Mesothelial 3 Pleural Total Protein 2.1 Pleural LDH 118 Pleural Glucose 157 09/11/18 09/11/18 09/11/18 13:24 17:26 23:19 WBC RBC Hgb Hct MCV MCH MCHC RDW Plt Count MPV Sodium Potassium Chloride Carbon Dioxide Anion Gap BUN Creatinine Estimated GFR POC Glucose 130 H 232 H 224 H Random Glucose Calcium Phosphorus Magnesium Carcinoembryonic Ag Pleural pH Pleural RBC Pleural Nuc Cells Pleural Neutrophils Pleural Lymphocytes Pleural Monocytes Pleural Eosinophils Pleural Histocytes Pleural Mesothelial Pleural Total Protein Pleural LDH Pleural Glucose 09/12/18 09/12/18 09/12/18 05:17 08:47 08:47 WBC 10.4 RBC 4.02 Hgb 12.2 Hct 36.8 MCV 91.6 MCH 30.4 MCHC 33.2 RDW 15.1 Plt Count 155 MPV 11.8 H Sodium 139 Potassium 4.1 Chloride 110 H Carbon Dioxide 21.5 Anion Gap 8 BUN 34 H Creatinine 1.38 H Estimated GFR 45 L POC Glucose 218 H Random Glucose 188 H Calcium 8.3 L Phosphorus 2.5 Magnesium 2.0 Carcinoembryonic Ag Pleural pH Pleural RBC Pleural Nuc Cells Pleural Neutrophils Pleural Lymphocytes Pleural Monocytes Pleural Eosinophils Pleural Histocytes Pleural Mesothelial Pleural Total Protein Pleural LDH Pleural Glucose Culture Results: Microbiology 09/11/18 11:45 Gram Stain - Final Fluid - Pleural fluid 09/08/18 00:19 Gram Stain - Final Sputum - Endotracheal Sputum Culture - Final Moderate growth normal respiratory [place] 09/04/18 15:56 Aerobic Blood Culture - Final Blood - Peripheral No growth in 5 days Anaerobic Blood Culture - Final No growth in 5 days 09/04/18 14:50 Aerobic Blood Culture - Final Blood - Peripheral No growth in 5 days Anaerobic Blood Culture - Final No growth in 5 days Imaging Studies: Impressions Chest X-Ray 09/11/18 00:00 CONCLUSION: Negative for pneumothorax following thoracentesis Thoracentesis Ultrasound 09/11/18 00:00 CONCLUSION: 1. Uncomplicated thoracentesis. Medications: Active Medications Generic Name Dose Route Start Last Admin Trade Name Freq PRN Reason Stop Dose Admin Amlodipine Besylate 10 mg 09/12/18 09:00 09/12/18 08:14 Norvasc PO 10 mg DAILY [facility] Administration Atorvastatin Calcium 80 mg 09/04/18 18:00 09/11/18 17:23 Lipitor PO 80 mg DAILY@1800 [facility] Administration Carvedilol 12.5 mg 09/09/18 17:17 09/12/18 08:14 Coreg PO 12.5 mg BID [facility] Administration Famotidine 20 mg 09/08/18 21:00 09/12/18 08:12 Pepcid Pf Inj IV.PUSH 20 mg Q12HR [facility] Administration Heparin Sodium (Porcine) 5,000 units 09/04/18 18:00 09/12/18 05:15 Heparin Inj SQ 5,000 units Q12H [facility] Administration Hydralazine HCl 25 mg 09/11/18 18:00 09/12/18 08:13 Apresoline PO 25 mg TID [facility] Administration Lactated Ringer's 1,000 mls @ 60 mls/hr 09/11/18 14:58 09/12/18 06:38 Lr 1000 Ml Inj IV.CONT Not Given .[id number] [facility] Insulin Aspart 0 unit 09/08/18 06:00 09/12/18 05:17 Novolog Insulin Correctional Sugar Inj SQ 3 unit Q6HR [facility] Administration Protocol Labetalol HCl 20 mg 09/09/18 17:17 09/09/18 18:31 Trandate Inj IV.PUSH 20 mg Q1H PRN Administration SBP >180 Methylprednisolone Sodium Succinate 60 mg 09/08/18 02:00 09/12/18 08:13 Solumedrol Inj IV.PUSH 60 mg Q6H [facility] Administration Senna/Docusate Sodium 1 tab 09/04/18 21:00 09/12/18 08:13 Kamila-Colace PO 1 tab BID [facility] Administration Sodium Chloride 2 ml 09/04/18 21:00 09/12/18 08:14 Ns Flush IV.FLUSH 2 ml BID [facility] Administration Objective Remarks: GENERAL: Frail elderly female patient, in mild distress. SKIN: Warm and dry. HEAD: Normocephalic. EYES: No scleral icterus. No injection or drainage. PERRLA. MOUTH: Oral mucosa dry. NECK: Supple, trachea midline. CARDIOVASCULAR: + S1/S2, grade 4/6 murmur noted. RESPIRATORY: Posterior breath sounds clear, equal bilaterally. Noted accessory muscle use. Dressing noted to right lateral back and inferior axilla, both are dry and intact. No swelling or crepitus noted to the area. GASTROINTESTINAL: Abdomen soft, non-tender, nondistended. Currently having a bowel movement. EXTREMITIES: No cyanosis, or edema. MUSCULOSKELETAL: Adequate muscle tone. NEUROLOGICAL: No obvious focal deficit. Awake, alert, and oriented x3. Equal livestock exhibitor strength bilaterally. PSYCHIATRIC: Appropriate mood and affect; insight and judgment normal Assessment/Plan - Plan Ms. Swanson is a pleasant 77-year-old elderly female patient with a newly diagnosed squamous cell carcinoma. Plan: 1. Squamous cell carcinoma, status post thoracentesis. Patient noted to have 700 cc drained from pleural space, awaiting cytology. Radiation oncology following. 2. Respiratory failure, resolved. Oxygen saturation 97% on room air. 3. Dizziness, neuro exam intact. Will order MRI brain, given her new diagnosis of lung cancer and her acute dizziness. Dizziness may also be secondary to dehydration, patient appears to be dry on physical exam, will order fluids. - Attending Statement The exam, history, and the medical decision-making described in the above note were completed with the assistance of the mid-level provider. I reviewed and agree with the findings presented. I attest that I had a [id number] encounter with the patient on the same day, and personally performed and documented my assessment and findings in the medical record. Patient denies any new complain Pleural fluid cytology came back negative I have discussed the case with the radiation oncologist Dr. Wiseman My recommendation is for stereotactic radiosurgery to the right lower lobe lung mass
[2018-09-12] MEDS ORDERED: Sodium Chlor 0.9% Inj 500 ML IV.SIG ONE (10:59)
--- NOTE | 2018-09-12 12:39 | P.PN ---
Subjective Interval history: Laying in bed and in no distress. Off O2 sat 96. Seen by radiation oncology. Rehab plans in progress Physical Exam Vital signs: Vital Signs 09/11/18 13:05 09/11/18 15:00 09/11/18 16:00 Temperature 97.8 F 97.3 F L Pulse Rate 86 93 H 92 H Respiratory Rate 19 16 18 Blood Pressure 138/106 H 198/92 H Pulse Oximetry 95 99 09/11/18 20:00 09/11/18 20:56 09/12/18 00:00 Temperature 98.2 F 97.7 F Pulse Rate 96 H 78 87 Respiratory Rate 20 14 16 Blood Pressure 176/99 H 154/76 H Pulse Oximetry 93 L 95 94 L 09/12/18 04:00 09/12/18 08:00 09/12/18 10:53 Temperature 97.9 F 97.3 F L Pulse Rate 79 86 Respiratory Rate 22 20 Blood Pressure 162/86 H 171/84 H Pulse Oximetry 95 95 96 Intake & Output 09/11/18 09/12/18 09/12/18 18:59 06:59 18:59 Intake Total 240 / 240 380 / 380 Output Total 250 / 250 500 / 500 Balance -10 / -10 -120 / -120 Weight 57.8 kg Intake: IV 380 / 380 LR 1000 mL Inj 1,000 ML @ 60 380 / 380 mls/hr IV.CONT .[id number] [facility] Rx# :[id number] Oral 240 / 240 Output: Urine 250 / 250 500 / 500 Other: Date of Last Bowel Movement 09/12/18 Narrative: GENERAL: Elderly -[place] female who alert in no distress HEAD: Atraumatic. Normocephalic. Skin was dry and cool EYES: Pupils equal and round. No scleral icterus. No injection or drainage. ENT: No nasal bleeding or discharge. Mucous membranes pink and moist. NECK: Trachea midline. No JVD. CARDIOVASCULAR: Regular rate and rhythm. No murmurs rubs or gallops. RESPIRATORY: Decreased breath sounds right base with occasional wheezes. GASTROINTESTINAL: Abdomen soft, non-tender, nondistended. Bowel sounds present. MUSCULOSKELETAL: Extremities without clubbing, cyanosis, or edema. No obvious deformities. NEUROLOGICAL: Awake moves all extremities and no focal deficit. - Urinary Catheter Management Straight Cath placed during this visit: yes Reason for continuing: Not indwelling catheter Insertion date: 09/04/18 Insertion time: 14:24 Female External Cath placed during this visit: yes Reason for continuing: Not indwelling catheter Insertion date: 09/08/18 Insertion time: 00:00 Results - Labs CBC & Chem 7: 09/12/18 08:47 09/12/18 08:47 Laboratory Results - last 24 hr 09/11/18 09/11/18 09/11/18 07:01 11:45 11:45 WBC RBC Hgb Hct MCV MCH MCHC RDW Plt Count MPV Sodium Potassium Chloride Carbon Dioxide Anion Gap BUN Creatinine Estimated GFR POC Glucose Random Glucose Calcium Phosphorus Magnesium Carcinoembryonic Ag Cancelled Pleural pH 8.0 Pleural RBC 86091 H Pleural Nuc Cells 217 H Pleural Neutrophils 21 Pleural Lymphocytes 67 Pleural Monocytes 7 Pleural Eosinophils 1 Pleural Histocytes 1 Pleural Mesothelial 3 Pleural Total Protein 2.1 Pleural LDH 118 Pleural Glucose 157 09/11/18 09/11/18 09/11/18 13:24 17:26 23:19 WBC RBC Hgb Hct MCV MCH MCHC RDW Plt Count MPV Sodium Potassium Chloride Carbon Dioxide Anion Gap BUN Creatinine Estimated GFR POC Glucose 130 H 232 H 224 H Random Glucose Calcium Phosphorus Magnesium Carcinoembryonic Ag Pleural pH Pleural RBC Pleural Nuc Cells Pleural Neutrophils Pleural Lymphocytes Pleural Monocytes Pleural Eosinophils Pleural Histocytes Pleural Mesothelial Pleural Total Protein Pleural LDH Pleural Glucose 09/12/18 09/12/18 09/12/18 05:17 08:47 08:47 WBC 10.4 RBC 4.02 Hgb 12.2 Hct 36.8 MCV 91.6 MCH 30.4 MCHC 33.2 RDW 15.1 Plt Count 155 MPV 11.8 H Sodium 139 Potassium 4.1 Chloride 110 H Carbon Dioxide 21.5 Anion Gap 8 BUN 34 H Creatinine 1.38 H Estimated GFR 45 L POC Glucose 218 H Random Glucose 188 H Calcium 8.3 L Phosphorus 2.5 Magnesium 2.0 Carcinoembryonic Ag Pleural pH Pleural RBC Pleural Nuc Cells Pleural Neutrophils Pleural Lymphocytes Pleural Monocytes Pleural Eosinophils Pleural Histocytes Pleural Mesothelial Pleural Total Protein Pleural LDH Pleural Glucose 09/12/18 12:31 WBC RBC Hgb Hct MCV MCH MCHC RDW Plt Count MPV Sodium Potassium Chloride Carbon Dioxide Anion Gap BUN Creatinine Estimated GFR POC Glucose 332 H Random Glucose Calcium Phosphorus Magnesium Carcinoembryonic Ag Pleural pH Pleural RBC Pleural Nuc Cells Pleural Neutrophils Pleural Lymphocytes Pleural Monocytes Pleural Eosinophils Pleural Histocytes Pleural Mesothelial Pleural Total Protein Pleural LDH Pleural Glucose Microbiology 09/11/18 11:45 Fluid - Pleural fluid Gram Stain - Final 09/11/18 11:45 Fluid - Pleural fluid Body Fluid Culture - Preliminary No growth in 24 hours - Imaging Impressions Thoracentesis Ultrasound 09/11/18 00:00 CONCLUSION: 1. Uncomplicated thoracentesis. Assessment and Plan - Assessment (1) Pulmonary nodule, right Code(s): R91.1 - Solitary pulmonary nodule Status: Acute (2) Acute hypercapnic respiratory failure Code(s): J96.02 - Acute respiratory failure with hypercapnia Status: Acute (3) Right lower lobe lung mass Code(s): R91.8 - Other nonspecific abnormal finding of lung field Status: Acute (4) Pleural effusion Code(s): J90 - Pleural effusion, not elsewhere classified Status: Acute (5) Mass of left lung Code(s): R91.8 - Other nonspecific abnormal finding of lung field Status: Acute (6) ELVA (acute kidney injury) Code(s): N17.9 - Acute kidney failure, unspecified Status: Resolved - Plan 1. Resp Insuff- Extubated 09/09 2. 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 3. Small right pleural effusion. 4. Remote history of tobacco use. 5. Mild acute kidney injury, improving. 6. Pancytopenia. 7. Hypertension. 8. CVA. 9. Hyperlipidemia. 10. Diabetes mellitus. Plan Continue with oxygen at 2 L and maintain sats >92%. DuoNeb nebs 4 times daily and, IS every 3 hours DC Solumederol Radiation therapy as per oncology To rehab soon
--- NOTE | 2018-09-12 14:40 | P.PNIM ---
Subjective Interval history: Patient laying down in bed. Does not appear to be in any acute distress. Family at bedside. Physical Exam Vital signs: Vital Signs 09/11/18 15:00 09/11/18 16:00 09/11/18 20:00 Temperature 97.3 F L 98.2 F Pulse Rate 93 H 92 H 96 H Respiratory Rate 16 18 20 Blood Pressure 198/92 H 176/99 H Pulse Oximetry 99 93 L 09/11/18 20:56 09/12/18 00:00 09/12/18 04:00 Temperature 97.7 F 97.9 F Pulse Rate 78 87 79 Respiratory Rate 14 16 22 Blood Pressure 154/76 H 162/86 H Pulse Oximetry 95 94 L 95 09/12/18 08:00 09/12/18 10:53 Temperature 97.3 F L Pulse Rate 86 Respiratory Rate 20 Blood Pressure 171/84 H Pulse Oximetry 95 96 Intake & Output 09/11/18 09/12/18 09/12/18 18:59 06:59 18:59 Intake Total 240 / 240 380 / 380 520 / 520 Output Total 250 / 250 500 / 500 Balance -10 / -10 -120 / -120 520 / 520 Weight 57.8 kg Intake: IV 380 / 380 520 / 520 LR 1000 mL Inj 1,000 ML @ 60 380 / 380 20 / 20 mls/hr IV.CONT .[id number] [facility] Rx# :[id number] NS Inj 500 ML @ Wide Open IV. 500 / 500 SIG BOLUS ONE Rx#:[id number] Oral 240 / 240 Output: Urine 250 / 250 500 / 500 Other: Date of Last Bowel Movement 09/12/18 Narrative: Awake and alert x 1 S1S2 Decreased breath sounds on the right base No edema of exts Can move all 4 exts, sensation intact b/l Urinary Catheter Management Straight: Cath placed during this visit: yes Reason for continuing: Not indwelling catheter Insertion date: 09/04/18 Insertion time: 14:24 Female External: Cath placed during this visit: yes Reason for continuing: Not indwelling catheter Insertion date: 09/08/18 Insertion time: 00:00 Results Labs CBC & Chem 7: 09/13/18 05:47 09/13/18 05:47 Labs: Microbiology 09/11/18 11:45 Fluid - Pleural fluid Gram Stain - Final 09/11/18 11:45 Fluid - Pleural fluid Body Fluid Culture - Preliminary No growth in 24 hours Imaging Imaging: Impressions Thoracentesis Ultrasound 09/11/18 00:00 CONCLUSION: 1. Uncomplicated thoracentesis. Assessment and Plan (1) Pulmonary nodule, right: Code(s): R91.1 - Solitary pulmonary nodule Status: Acute (2) Right lower lobe lung mass: Code(s): R91.8 - Other nonspecific abnormal finding of lung field Status: Acute Plan This patient is a 77 y/o white female admitted on 09/04 with a pmh of OA, dld, CAD, CVA, DM II. Patient is wheel chair bound at baseline. She was admitted for nausea and vomiting with ELVA, elevated Lactate, and bandemia. CT abd showed a right lung mass with pleural effusion. CT guided bx was done on 09/06. On 09/07 a Halicat was called because of worsening shortness of breath and hypoxia, CXR showed a patchy right middle to lower lobe infiltrate and right lung effusion. Patient was subsequently intubated and sent to the ICU. 09/10 the patient was extubated successfully. 1. Acute hypoxic hypercapnic resp failure 2/2 Pna and COPD exacerbation and newly diagnosed Squamous cell carcinoma 2. Acute metabolic encephalopathy Patient is s/p thoracentesis yesterday. Radiation oncology evaluated the patient. Plan is for PET scan after discharge then pt can follow up with Radiation oncology for discussion regarding next step plans and tx options. Hem/Onc following. MRI brain ordered for possible metastasis given pts complaints of dizziness today. Respiratory failure has resolved. Patient is on room air. Pulm following the patient Repeat cxr shows no pneumothorax. Blood cxs are negative. Pleural fluid cxs are negative. CTA neg for PE 3. HTN Continue bb, norvasc Hydralazine dose increased. Continue to monitor bp and adjust meds as needed. 4. DLD/DMII Continue statin. Continue Sliding scale. 5. ELVA 09/07 cr 0.84, currently 1.3, improving Continue light IVF hydration Follow up am labs. Heparin for dvt prophylaxis. Progress Note: Quality VTE Deep Vein Thrombosis/Pulmonary Embolism Present on Admission: No
[2018-09-12] MEDS ORDERED: Gadobutrol PF 7.5 MMOL/7.5 ML Vial (for RAD) IV.SIG ONE (18:26)
[2018-09-12] MEDS: hydrALAZINE 50 MG Tablet PO SCH (18:57)
--- NOTE | 2018-09-12 19:29 | MR ---
EXAM DATE: 09/12/2018 6:44 PM EST AGE/SEX: 77 years / Female INDICATIONS: Dizziness. Recently lung cancer. CLINICAL DATA: This is the patient's initial encounter. Patient reports that signs and symptoms have been present for 1 day and indicates a pain score of 1/10. MEDICAL/SURGICAL HISTORY: Cardiovascular disease. Diabetes mellitus type II. Hypertension. Hy sterectomy. Coronary artery stent. [place] [facility] [place] [facility] [place]. . TECHNIQUE: Multiplanar, multisequence examination of the brain was performed without and with 6 ml Ga davist (gadobutrol) contrast as a single exam dose. FINDINGS: Cerebrum: The ventricles are dilated. The sulci are widened. The ventricles appear dilated out of pr oportion to the sulcal widening. No evidence of midline shift, mass lesion, hemorrhage or acute infar ction. No extraaxial fluid collections are seen. The pituitary gland and suprasellar cistern are no rmal in configuration. White Matter: There are focal and confluent areas of increased signal in the cerebral white matter. Posterior Fossa: The cerebellum and brainstem are intact. The 4th ventricle is midline. The cerebel lopontine angle is unremarkable. The cerebellar tonsils are normal in position. Diffusion Imaging: No focal areas of restricted diffusion are seen. No evidence of acute infarction . Extracranial: The visualized portions of the orbits and paranasal sinuses are unremarkable. Post Contrast: No abnormal areas of parenchymal or dural enhancement. No evidence of blood-brain ba rrier breakdown. CONCLUSION: 1. No acute abnormality seen. 2. Atrophy. The ventricles appear dilated out of proportion to the sulci which could suggest normal pressure hydrocephalus in the correct clinical situation. 3. Suspected small vessel ischemic change in the white matter. Electronically signed by: Zaid Ambrose MD Board Certified Radiologist 09/12/2018 7:28 PM EST
[2018-09-13] MEDS: Insulin NovoLOG Aspart Correctional Sugar Inj SQ SCH ×4 (05:36→18:37)
[2018-09-13] MEDS: Heparin - SQ 10,000 UNITS/ML Vial SQ SCH ×2 (05:36→18:01)
[2018-09-13 07:26] LABS: Hematocrit 33.7 % (35.0-46.0); Hemoglobin 11.2 gm/dL (11.6-15.3); Mean Corpuscular HGB Conc 33.3 % (32.0-36.0); Mean Corpuscular Hemoglobin 30.5 pg (27.0-34.0); Mean Corpuscular Volume 91.8 fL (80.0-100.0); Mean Platelet Volume 11.4 fL (7.0-11.0); Platelet Count 153 th/mm3 (150-450); Red Blood Count 3.67 mil/mm3 (4.00-5.30); Red Cell Distribution Width 15.1 % (11.6-17.2); White Blood Count 10.1 th/mm3 (4.0-11.0)
[2018-09-13 07:44] LABS: Carbon Dioxide 26.4 meq/L (21.0-32.0); Magnesium 1.9 mg/dL (1.5-2.5); Potassium 3.8 meq/L (3.5-5.1)
[2018-09-13] MEDS ORDERED: predniSONE 10 MG Tablet PO SCH (09:00)
[2018-09-13] MEDS: Carvedilol 6.25 MG Tablet PO SCH (09:09)
[2018-09-13] MEDS: amLODIPine 10 MG Tablet PO SCH (09:09)
[2018-09-13] MEDS: Senna/Docusate Sodium 8.6/50 MG Tablet PO SCH (09:09)
[2018-09-13] MEDS: hydrALAZINE 50 MG Tablet PO SCH ×3 (09:09→18:37)
[2018-09-13] MEDS: Famotidine PF Inj 20 MG/2 ML Vial IV.PUSH SCH (09:09)
--- NOTE | 2018-09-13 10:28 | P.DS ---
DS: Providers Date of admission: 09/05/18 17:41 Primary care physician: Syed Luis MD Consults: 09/05/18 07:55 HUB Only Consult Order Routine Consulting Provider: [employer] 09/05/18 11:07 Consult to Pulmonology Routine Consulting Provider: Shlomo Armas Reason for Consultation: RLL mass concerning for bronchogenic carcinoma Notified:: Service Spoke with:: Lizzeth Date Notified:: 09/05/18 Time Notified:: 11:17 Ordering Provider: JERRI 09/07/18 13:21 HUB Only Consult Order [facility]ine [facility] 09/08/18 10:27 Consult to Oncology Routine Consulting Provider: Felipe Lindsay Reason for Consultation: squamous cell carcinoma right lung Notified:: Office Spoke with:: Samantha Date Notified:: 09/08/18 Time Notified:: 10:32 Ordering Provider: TERRY 09/10/18 10:03 Consult to Hospitalist Routine Consulting Provider: Dario Hernandez Reason for Consultation: resp failure Notified:: Service Spoke with:: CAMMIE Date Notified:: 09/10/18 Time Notified:: 10:18 Comments:: Ordering Provider: SARA 09/11/18 09:13 Consult to Radiation Oncology Routine Consulting Provider: Tristin Tellez Reason for Consultation: Consider SRS Notified:: Office Spoke with:: Dyan Date Notified:: 09/11/18 Time Notified:: 09:17 Ordering Provider: CAMMIE Brief History from admission: Mrs. Swanson is a pleasant 77-year-old elderly white female with significant past medical history of osteoarthritis, wheelchair -bound, hyperlipidemia, CAD, CVA, type 2 diabetes. Patient presented to the emergency room via EMS for nausea and vomiting. Patient does not recall how she became ill. According to son who is at bedside, patient resides at home with one of his sisters and has caregivers who come in and assist with ADLs. Per sister story, patient was getting bathed when she suddenly leaned forward became nauseous and started vomiting, she was noted shaking and sweating. At that time EMS was called and patient was brought in for evaluation. Patient has no recall of becoming ill, she does remember eating breakfast without any problems. Son believes that she became ill because she ate some bad barbecue last night. There was no diarrhea reported, no abdominal pain, no fever, no chills. Patient is a poor historian, son denies any history of dementia.Patient denies any chest pain, no shortness of breath, she is resting comfortably. Denies any urinary symptoms, no diarrhea. States she was doing well yesterday. Son endorses that patient has been wheelchair-bound for a couple years, has history of sacral fractures and osteoarthritis.Patient was evaluated in the emergency room, CBC significant for bandemia. No fever. Was noted dehydrated, creatinine 1.43. Lactic acid 2.4. Urinalysis did not show any infection. Chest x-ray did not show any significant findings. CT of the abdomen showed a 4.7 mass in the lower lateral right lung partially included in the [id number] skin, moderate size pleural effusion, findings suspicious for malignancy. Moderate-sized bilateral fat-containing inguinal hernias. A CT of the chest has been ordered and is pending. Patient endorses history of tobacco abuse, quit 20 years ago.Pt. was given IVF, Zithromax and BC x 2 were done. Pt. is admitted for further evaluation and treatment. DS: Diagnosis Discharge Diagnosis (1) Pulmonary nodule, right: Status: Acute (2) Right lower lobe lung mass: Status: Acute DS: Summary 1. Acute hypoxic hypercapnic resp failure 2/2 Pna and COPD exacerbation and newly diagnosed Squamous cell carcinoma 2. Acute metabolic encephalopathy This patient is a 77 y/o white female admitted on 09/04 with a pmh of OA, dld, CAD, CVA, DM II. Patient is wheel chair bound at baseline. She was admitted for nausea and vomiting with ELVA, elevated Lactate, and bandemia. CT abd showed a right lung mass with pleural effusion. CT guided bx was done on 09/06 which showed squamous cell carcinoma. On 09/07 a Halicat was called because of worsening shortness of breath and hypoxia, CXR showed a patchy right middle to lower lobe infiltrate and right lung effusion. Patient was subsequently intubated and sent to the ICU. 09/10 the patient was extubated successfully. Patient is s/p thoracentesis two days ago. Radiation oncology evaluated the patient. Plan is for PET scan after discharge then pt can follow up with Radiation oncology for discussion regarding next step plans and tx options within two weeks after the PET scan. Hem/Onc following. MRI brain done which shows no evidence of metastatic disease. Mild dilation of the ventricles, no complaints of dizziness today. Respiratory failure has improved, currently she is on 2L of oxygen. Pulm following the patient during the hospitalization. Repeat cxr shows no pneumothorax after the thoracentesis Blood cxs are negative. Pleural fluid cxs are negative. CTA neg for PE Patient will be discharged to a SNF today. F/U with radiation oncology, oncology, and PCP in 1-2 weeks. 3. HTN Continue bb, norvasc Hydralazine dose increased to 100mg TID. Continue to monitor bp and adjust meds as needed. If cr is ok during next clinic visit, lisinopril can be restarted. 4. DLD/DMII Continue statin. Metformin can be restarted. Monitor renal panel during next clinic visit with pcp. Current serum cr is 1.1 5. ELVA Cr. Currently 1.1, improved. F/u renal panel in one week during next pcp clinic visit. Time Spent with Patient Total time spent providing and/or coordinating discharge services: 35 minutes Greater than 30 minutes Quality: VTE Deep Vein Thrombosis/Pulmonary Embolism Present on Admission: No Exam Narrative Exam Narrative: awake and alert. Oriented x 1 to person only S1S2 Decreased breath sounds on the right base No edema of exts Can move all 4 exts, sensation intact b/l Results Labs on day of discharge: Labs from last 24 hours 09/13/18 09/13/18 09/13/18 05:47 05:47 05:35 WBC 10.1 RBC 3.67 L Hgb 11.2 L Hct 33.7 L MCV 91.8 MCH 30.5 MCHC 33.3 RDW 15.1 Plt Count 153 MPV 11.4 H Sodium 145 Potassium 3.8 Chloride 110 H Carbon Dioxide 26.4 Anion Gap 9 BUN 30 H Creatinine 1.16 H Estimated GFR 55 L POC Glucose 155 H Random Glucose 103 Calcium 8.0 L Phosphorus 2.0 L Magnesium 1.9 09/12/18 09/12/18 09/12/18 23:44 18:55 12:31 WBC RBC Hgb Hct MCV MCH MCHC RDW Plt Count MPV Sodium Potassium Chloride Carbon Dioxide Anion Gap BUN Creatinine Estimated GFR POC Glucose 232 H 147 H 332 H Random Glucose Calcium Phosphorus Magnesium Preliminary micro results at discharge 09/11/18 11:45 Body Fluid Culture - Preliminary Fluid - Pleural fluid No growth in 48 hours Impressions ITS Impressions Abdomen/Pelvis CT 09/04/18 15:14 CONCLUSION: 1. 1.7 cm mass in the lower lateral right lung partially included in the field- of-view scan. Also moderate size right pleural effusion. The findings are suspicious for malignancy. Recommend CT thorax to evaluate for additional lesions. 2. Moderate-sized bilateral fat-containing inguinal hernias. Chest CT 09/04/18 17:01 CONCLUSION: 1. Right lower lobe 1.8 x 1.4 x 1.6 cm pleural-based soft tissue mass of concern for primary bronchogenic carcinoma. There is a borderline prominent pretracheal lymph node. These findings could be further evaluated with PET CT to evaluate for hypermetabolic tumor. The lung mass would be amenable to CT- guided core biopsy. 2. Small right pleural effusion. 3. Small pericardial effusion. Lung Biopsy CT 09/06/18 00:00 CONCLUSION: 1. Uncomplicated CT guided biopsy. Chest CTA 09/08/18 00:00 CONCLUSION: This study is negative for pulmonary embolism. Chest X-Ray 09/11/18 00:00 CONCLUSION: Negative for pneumothorax following thoracentesis Thoracentesis Ultrasound 09/11/18 00:00 CONCLUSION: 1. Uncomplicated thoracentesis. Head MRI 09/12/18 00:00 CONCLUSION: 1. No acute abnormality seen. 2. Atrophy. The ventricles appear dilated out of proportion to the sulci which could suggest normal pressure hydrocephalus in the correct clinical situation. 3. Suspected small vessel ischemic change in the white matter. Discharge Plan Discharge Disposition Patient Disposition: Discharge to SNF Discharge Condition Condition: Stable Discharge Order Discharge Orders: Discharge Order (Routine); Ordered 09/13/18 Ordered By: Dario Heranndez Discharge Details Discharge Comment: CXR ordered, pending. Do not discharge patient until CXR evaluated by MD. Physicians Team Primary Care Provider: Syed Luis V Attending Provider: Dario Hernandez Other Providers: [employer] ; Shlomo Armas ; [facility]Ag[facility] ; Felipe Lindsay ; Tristin Tellez Rxs /Orders / Referrals /Forms Prescriptions: New hydralazine 50 mg Tablet 100 mg PO TID Qty: 90 RF: 0 carvedilol [Coreg] 6.25 mg Tablet 12.5 mg PO BID Qty: 60 RF: 0 amlodipine [Norvasc] 10 mg Tablet 10 mg PO DAILY Qty: 30 RF: 0 Continue metformin 500 mg Tablet 500 mg PO BID RF: 0 atorvastatin [Lipitor] 80 mg Tablet 80 mg PO QPM RF: 0 alendronate [Fosamax] 70 mg Tablet 70 mg PO QWEEK RF: 0 Discontinued carvedilol [Coreg] 6.25 mg Tablet 6.25 mg PO BID RF: 0 lisinopril 10 mg Tablet 10 mg PO DAILY RF: 0 Referrals: Syed Luis MD [Primary Care Provider] - See Instructions Discharge Interventions Interventions: Discharge Planning - Case Management Last Done: 09/13/18 10:24 Status ED Status: Left Department
--- NOTE | 2018-09-13 12:13 | XR ---
EXAM DATE: 09/13/2018 12:06 PM EST AGE/SEX: 77 years / Female INDICATIONS: Patient with history of lung cancer and right effusion. CLINICAL DATA: This is the patient's subsequent encounter. Patient reports that signs and symptoms h ave been present for 2 days and indicates a pain score of 0/10. MEDICAL/SURGICAL HISTORY: Carcinoma, lung. None. COMPARISON: [facility] [place] ONLY, 09/11/2018. . FINDINGS: A single AP semierect portable view of the chest was obtained and again demonstrates blunting of the right costophrenic angle. This is not significantly changed. There is mild volume loss in the right h emithorax. The heart size remains prominent. Atherosclerotic changes are present in the aorta. There is diffuse prominence of the interstitial lung markings which is increased from the prior study. CONCLUSION: 1. Small right pleural effusion without significant change. 2. Diffuse interstitial prominence which is increased in the prior study. This may be partially tech nical or could represent early pulmonary edema. Electronically signed by: Rah Mcarthur MD Board Certified Radiologist 09/13/2018 12:12 PM EST
--- NOTE | 2018-09-13 12:18 | P.PNONC ---
Subjective Interval history: Patient lying in bed, in mild distress. Granddaughter at bedside, states patient has been more confused this morning and believes that she is at home right now, also reports that patient seems to be having a hard time breathing. Patient states that she still feels dizzy. Objective Vital Signs/Intake & Output: Vital Signs 09/12/18 16:00 09/12/18 20:00 09/13/18 00:00 Temperature 97.8 F 98 F 97.6 F Pulse Rate 99 H 98 H 95 H Respiratory Rate 20 20 20 Blood Pressure 155/94 H 175/90 H 156/87 H Pulse Oximetry 94 L 94 L 94 L 09/13/18 02:56 09/13/18 03:00 09/13/18 08:00 Temperature 97.5 F L Pulse Rate 91 H 93 H Respiratory Rate 18 18 Blood Pressure 186/100 H Pulse Oximetry 97 95 09/13/18 09:51 Temperature Pulse Rate Respiratory Rate Blood Pressure Pulse Oximetry 96 Intake & Output 09/12/18 09/13/18 09/13/18 18:59 06:59 18:59 Intake Total 520 / 520 1060 / 1060 Balance 520 / 520 1060 / 1060 Weight 57.6 kg Intake: IV 520 / 520 1000 / 1000 LR 1000 mL Inj 1,000 ML @ 60 / 1000 / 1000 mls/hr IV.CONT .[id number] MARIA Rx# :[id number] NS Inj 500 ML @ Wide Open IV. 500 / 500 SIG BOLUS ONE Rx#:[id number] Oral 60 / 60 Other: # Voids 1 # Incontinent Voids 1 Date of Last Bowel Movement 09/12/18 # Bowel Movements 1 Result Diagrams: 09/13/18 05:47 09/13/18 05:47 Laboratory Results: Laboratory Results - last 24 hr 09/12/18 09/12/18 09/12/18 12:31 18:55 23:44 WBC RBC Hgb Hct MCV MCH MCHC RDW Plt Count MPV Sodium Potassium Chloride Carbon Dioxide Anion Gap BUN Creatinine Estimated GFR POC Glucose 332 H 147 H 232 H Random Glucose Calcium Phosphorus Magnesium 09/13/18 09/13/18 09/13/18 05:35 05:47 05:47 WBC 10.1 RBC 3.67 L Hgb 11.2 L Hct 33.7 L MCV 91.8 MCH 30.5 MCHC 33.3 RDW 15.1 Plt Count 153 MPV 11.4 H Sodium 145 Potassium 3.8 Chloride 110 H Carbon Dioxide 26.4 Anion Gap 9 BUN 30 H Creatinine 1.16 H Estimated GFR 55 L POC Glucose 155 H Random Glucose 103 Calcium 8.0 L Phosphorus 2.0 L Magnesium 1.9 Culture Results: Microbiology 09/11/18 11:45 Gram Stain - Final Fluid - Pleural fluid Body Fluid Culture - Preliminary No growth in 48 hours 09/11/18 11:45 Fungal Smear - Final Fluid - Pleural fluid No fungal elements seen 09/08/18 00:19 Gram Stain - Final Sputum - Endotracheal Sputum Culture - Final Moderate growth normal respiratory [place] Imaging Studies: Impressions Head MRI 09/12/18 00:00 CONCLUSION: 1. No acute abnormality seen. 2. Atrophy. The ventricles appear dilated out of proportion to the sulci which could suggest normal pressure hydrocephalus in the correct clinical situation. 3. Suspected small vessel ischemic change in the white matter. Medications: Active Medications Generic Name Dose Route Start Last Admin Trade Name Freq PRN Reason Stop Dose Admin Albuterol 2.5 mg 09/07/18 23:15 09/13/18 02:54 Albuterol Neb (Prn) NEB 2.5 mg Q2HR NEB PRN Administration BREATHING Amlodipine Besylate 10 mg 09/12/18 09:00 09/13/18 09:09 Norvasc PO 10 mg DAILY MARIA Administration Atorvastatin Calcium 80 mg 09/04/18 18:00 09/12/18 18:58 Lipitor PO 80 mg DAILY@1800 MARIA Administration Carvedilol 12.5 mg 09/09/18 17:17 09/13/18 09:09 Coreg PO 12.5 mg BID MARIA Administration Famotidine 20 mg 09/08/18 21:00 09/13/18 09:09 Pepcid Pf Inj IV.PUSH 20 mg Q12HR MARIA Administration Heparin Sodium (Porcine) 5,000 units 09/04/18 18:00 09/13/18 05:36 Heparin Inj SQ 5,000 units Q12H MARIA Administration Lactated Ringer's 1,000 mls @ 60 mls/hr 09/11/18 14:58 09/13/18 07:08 Lr 1000 Ml Inj IV.CONT 60 mls/hr .[id number] MARIA Administration Insulin Aspart 0 unit 09/08/18 06:00 09/13/18 05:36 Novolog Insulin Correctional Sugar Inj SQ 1 unit Q6HR MARIA Administration Protocol Labetalol HCl 20 mg 09/09/18 17:17 09/09/18 18:31 Trandate Inj IV.PUSH 20 mg Q1H PRN Administration SBP >180 Prednisone 10 mg 09/13/18 09:00 09/13/18 09:09 Deltasone PO 09/18/18 23:59 10 mg DAILY MARIA Administration Senna/Docusate Sodium 1 tab 09/04/18 21:00 09/13/18 09:09 Kamila-Colace PO Not Given BID MARIA Sodium Chloride 2 ml 09/04/18 21:00 09/13/18 10:11 Ns Flush IV.FLUSH Not Given BID MARIA Objective Remarks: GENERAL: Frail elderly female patient, in mild distress. SKIN: Warm and dry. HEAD: Normocephalic. EYES: No scleral icterus. No injection or drainage. PERRLA. MOUTH: Oral mucosa dry. Lips chapped. NECK: Supple, trachea midline. CARDIOVASCULAR: + S1/S2, grade 4/6 murmur noted. RESPIRATORY: Posterior breath sounds clear, equal bilaterally. Noted accessory muscle use. Dressing noted to right lateral back and inferior axilla, both are dry and intact. No swelling or crepitus noted to the area. GASTROINTESTINAL: Abdomen soft, non-tender, nondistended. EXTREMITIES: No cyanosis, or edema. MUSCULOSKELETAL: Adequate muscle tone. NEUROLOGICAL: No obvious focal deficit. Awake, alert, and oriented x3. Equal barrel reamer strength bilaterally. PSYCHIATRIC: Appropriate mood and affect; insight and judgment normal Assessment/Plan - Plan Ms. Swanson is a pleasant 77-year-old elderly female patient with a newly diagnosed squamous cell carcinoma. Plan: 1. Squamous cell carcinoma, status post thoracentesis. Patient noted to have 700 cc drained from pleural space, cytology negative for malignancy. Patient to follow with radiation oncology for PET scan, PFT and possible stereotactic radiosurgery after discharge. 2. Respiratory failure, resolved. Oxygen saturation 96-97% on O2 2 L/min. Chest x-ray ordered by attending. 3. Dizziness, neuro exam remains intact. MRI brain negative for metastasis. Patient received normal saline bolus yesterday for symptoms of dehydration. Will defer to attending for further workup. 4.Cleared from an oncology standpoint. - Attending Statement The exam, history, and the medical decision-making described in the above note were completed with the assistance of the mid-level provider. I reviewed and agree with the findings presented. I attest that I had a [id number] encounter with the patient on the same day, and personally performed and documented my assessment and findings in the medical record. Patient denies any new complaint, still has dizziness MRI of the brain is negative for metastasis Pleural fluid cytology came back negative for malignancy Case has been discussed with the radiation oncologist Patient will need PET scan as outpatient and possible stereotactic radiosurgery to right lower lobe lung mass if the PET scan confirm disease only in the right lower lobe. PFTs have been ordered Patient is clear for discharge from my standpoint She needs to see the radiation oncologist as an outpatient Sign off Available as needed
[2018-09-13 12:27] VITALS: O2SAT 97
--- NOTE | 2018-09-13 14:05 | P.PN ---
Subjective Interval history: She is weak and on o2 2 L. Will go to retirement today. Physical Exam Vital signs: Vital Signs 09/12/18 16:00 09/12/18 20:00 09/13/18 00:00 Temperature 97.8 F 98 F 97.6 F Pulse Rate 99 H 98 H 95 H Respiratory Rate 20 20 20 Blood Pressure 155/94 H 175/90 H 156/87 H Pulse Oximetry 94 L 94 L 94 L 09/13/18 02:56 09/13/18 03:00 09/13/18 08:00 Temperature 97.5 F L Pulse Rate 91 H 93 H Respiratory Rate 18 18 Blood Pressure 186/100 H Pulse Oximetry 97 95 09/13/18 09:51 09/13/18 12:00 Temperature 97.4 F L Pulse Rate 86 Respiratory Rate 17 Blood Pressure 141/74 H Pulse Oximetry 96 97 Intake & Output 09/12/18 09/13/18 09/13/18 18:59 06:59 18:59 Intake Total 520 / 520 1060 / 1060 Balance 520 / 520 1060 / 1060 Weight 57.6 kg Intake: IV 520 / 520 1000 / 1000 LR 1000 mL Inj 1,000 ML @ 60 20 / 20 1000 / 1000 mls/hr IV.CONT .[id number] MARIA Rx# :[id number] NS Inj 500 ML @ Wide Open IV. 500 / 500 SIG BOLUS ONE Rx#:[id number] Oral 60 / 60 Other: # Voids 1 # Incontinent Voids 1 Date of Last Bowel Movement 09/12/18 # Bowel Movements 1 Narrative: GENERAL: Elderly -[place] female who alert in no distress HEAD: Atraumatic. Normocephalic. Skin was dry. EYES: Pupils equal and round. No scleral icterus. No injection or drainage. ENT: No nasal bleeding or discharge. Mucous membranes pink and moist. NECK: Trachea midline. No JVD. CARDIOVASCULAR: Regular rate and rhythm. No murmurs rubs or gallops. RESPIRATORY: Decreased breath sounds right base with occasional wheezes. GASTROINTESTINAL: Abdomen soft, non-tender, nondistended. Bowel sounds present. MUSCULOSKELETAL: Extremities without clubbing, cyanosis, or edema. No obvious deformities. NEUROLOGICAL: Awake moves all extremities and no focal deficit. - Urinary Catheter Management Straight Cath placed during this visit: yes Reason for continuing: Not indwelling catheter Insertion date: 09/04/18 Insertion time: 14:24 Female External Cath placed during this visit: yes Reason for continuing: Not indwelling catheter Insertion date: 09/08/18 Insertion time: 00:00 Results - Labs CBC & Chem 7: 09/13/18 05:47 09/13/18 05:47 Laboratory Results - last 24 hr 09/12/18 09/12/18 09/13/18 18:55 23:44 05:35 WBC RBC Hgb Hct MCV MCH MCHC RDW Plt Count MPV Sodium Potassium Chloride Carbon Dioxide Anion Gap BUN Creatinine Estimated GFR POC Glucose 147 H 232 H 155 H Random Glucose Calcium Phosphorus Magnesium 09/13/18 09/13/18 09/13/18 05:47 05:47 12:31 WBC 10.1 RBC 3.67 L Hgb 11.2 L Hct 33.7 L MCV 91.8 MCH 30.5 MCHC 33.3 RDW 15.1 Plt Count 153 MPV 11.4 H Sodium 145 Potassium 3.8 Chloride 110 H Carbon Dioxide 26.4 Anion Gap 9 BUN 30 H Creatinine 1.16 H Estimated GFR 55 L POC Glucose 171 H Random Glucose 103 Calcium 8.0 L Phosphorus 2.0 L Magnesium 1.9 Microbiology 09/11/18 11:45 Fluid - Pleural fluid Acid Fast Bacilli Smear - Final No acid fast bacilli seen 09/11/18 11:45 Fluid - Pleural fluid Gram Stain - Final 09/11/18 11:45 Fluid - Pleural fluid Body Fluid Culture - Preliminary No growth in 48 hours 09/11/18 11:45 Fluid - Pleural fluid Fungal Smear - Final No fungal elements seen - Imaging Impressions Head MRI 09/12/18 00:00 CONCLUSION: 1. No acute abnormality seen. 2. Atrophy. The ventricles appear dilated out of proportion to the sulci which could suggest normal pressure hydrocephalus in the correct clinical situation. 3. Suspected small vessel ischemic change in the white matter. Chest X-Ray 09/13/18 00:00 CONCLUSION: 1. Small right pleural effusion without significant change. 2. Diffuse interstitial prominence which is increased in the prior study. This may be partially technical or could represent early pulmonary edema. Assessment and Plan - Assessment (1) Pulmonary nodule, right Code(s): R91.1 - Solitary pulmonary nodule Status: Acute (2) Acute hypercapnic respiratory failure Code(s): J96.02 - Acute respiratory failure with hypercapnia Status: Acute (3) Right lower lobe lung mass Code(s): R91.8 - Other nonspecific abnormal finding of lung field Status: Acute (4) Pleural effusion Code(s): J90 - Pleural effusion, not elsewhere classified Status: Acute (5) Mass of left lung Code(s): R91.8 - Other nonspecific abnormal finding of lung field Status: Acute (6) ELVA (acute kidney injury) Code(s): N17.9 - Acute kidney failure, unspecified Status: Resolved - Plan 1. Resp Insuff- Extubated 09/09 2. 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 3. Small right pleural effusion. 4. Remote history of tobacco use. 5. Mild acute kidney injury, improving. 6. Pancytopenia. 7. Hypertension. 8. CVA. 9. Hyperlipidemia. 10. Diabetes mellitus. Plan Continue with oxygen at 2 L and maintain sats >92%. DuoNeb nebs 4 times daily and, IS every 3 hours Arrange O2 2 L at rehab, Radiation therapy as per oncology To rehab today Will see as OP in 2 weeks
[2018-09-13 18:23] VITALS: BP 139/79; PULSE 96; RESP 18; TEMP 98.2
== END 2018-09-13 19:06 | DRG 208 ==
LOC: NEDA 11:22 → NEPC 11:22 → NEPHCDU 18:58 → N06 09-05 20:57 → N03 09-07 22:30 → N07 09-10 18:28
PROVIDERS: ADMIT Hospitalist; ATTEND Hospitalist
DX: E86.0 Dehydration; C34.91 Malignant neoplasm of unspecified part of right bronchus or lung; Z79.83 Long term (current) use of bisphosphonates; D61.818 Other pancytopenia; N17.9 Acute kidney failure, unspecified; Z87.891 Personal history of nicotine dependence; E78.00 Pure hypercholesterolemia, unspecified; R00.0 Tachycardia, unspecified; Z79.899 Other long term (current) drug therapy; R53.81 Other malaise; Z95.828 Presence of other vascular implants and grafts; I10 Essential (primary) hypertension; G93.41 Metabolic encephalopathy; K52.9 Noninfective gastroenteritis and colitis, unspecified; I25.10 Atherosclerotic heart disease of native coronary artery without angina pectoris; M19.90 Unspecified osteoarthritis, unspecified site; J44.0 Chronic obstructive pulmonary disease with (acute) lower respiratory infection; E87.2 Acidosis; Z99.3 Dependence on wheelchair; J90 Pleural effusion, not elsewhere classified; K40.20 Bilateral inguinal hernia, without obstruction or gangrene, not specified as recurrent; J44.1 Chronic obstructive pulmonary disease with (acute) exacerbation; Z90.710 Acquired absence of both cervix and uterus; I95.9 Hypotension, unspecified; J18.9 Pneumonia, unspecified organism; E11.9 Type 2 diabetes mellitus without complications; E78.5 Hyperlipidemia, unspecified; Z79.84 Long term (current) use of oral hypoglycemic drugs; M62.50 Muscle wasting and atrophy, not elsewhere classified, unspecified site; J96.01 Acute respiratory failure with hypoxia; J96.02 Acute respiratory failure with hypercapnia; Z86.73 Personal history of transient ischemic attack (TIA), and cerebral infarction without residual deficits
CPT/HCPCS: 31500; 32405; 32555; 36600; 51798; 70553; 71010; 71045; 71250; 71275; 74177; 76360; 77012; 80048; 80053; 81001; 82040; 82378; 82805; 82945; 82948; 82962; 83605; 83615; 83690; 83735; 83986; 84100; 84155; 84157; 84484; 85025; 85027; 85610; 85730; 87015; 87040; 87070; 87102; 87116; 87205; 87206; 87641; 88112; 88305; 88341; 88342; 88343; 89051; 92526; 92610; 94002; 94003; 94150; 94640; 94650; 94651; 94656; 94657; 94664; 94665; 94667; 94668; 96361; 96365; 96366; 97110; 97116; 97162; 97164; 99145; 99152; 99153; 99222; 99285; A9585; C1729; G0195; G0378; G0461; G0462; G8987; G8988; J0456; J0696; J1644; J1815; J1940; J2250; J2704; J2930; J3010; J7030; J7040; J7050; J7120; J7506; J7512; Q9967